=== PATIENT | female | born 1960 | race Caucasian/White ===

== ENCOUNTER 2022-11-28 15:44 | Inpatient (IN) ==
--- NOTE | 2022-11-28 17:23 | XRay Report ---
XR chest 1V not portable CLINICAL HISTORY: Tachycardia. COMPARISON STUDY: Chest CT October 05, 2021. Chest radiograph November 15, 2021. FINDINGS: There are median sternotomy wires and a prosthetic aortic valve. Cardiac size is normal. No pneumothorax or pleural effusion is present. There is emphysema. No consolidation is identified to s uggest pneumonia. An irregular density projecting over the right hilum is unchanged from earlier ches t CTs. This favors scarring. There has been no significant change in appearance of the chest. IMPRESSION: No acute cardiopulmonary findings. Emphysema. No change in appearance of the chest. ACT 112: Negative or not required by law. Electronically signed by: Reggie Gomez M.D. 11/28/2022 5:21 PM
[2022-11-28 17:27] LABS: Basophils # (auto) 0.05 K/uL (0-0.2); Basophils % (auto) 0.6 %; Eosinophils # (auto) 0.21 K/uL (0-0.50); Eosinophils % (auto) 2.4 %; Hematocrit (blood only) 34.7 % (37.0-47.0); Hemoglobin 11.1 g/dl (12.0-16.0); Immature Granulocytes # (auto) 0.04 K/uL (0.01-0.20); Immature Granulocytes % (auto) 0.5 %; Lymphocytes # (auto) 1.05 K/uL (1.2-3.4); Mean Corpuscular Hemoglobin 20.2 pg (25.0-34.0); Mean Corpuscular Volume 63.2 fL (80.0-100.0); Monocytes # (auto) 1.05 K/uL (0.11-0.59); Neutrophils # (auto) 6.38 K/uL (1.40-6.50); Neutrophils % (auto) 72.5 %; RDW Coefficient of Variation 14.4 % (11.5-14.5); RDW Standard Deviation 30.6 fL (36.4-46.3); Red Blood Count 5.49 M/uL (4.20-5.40); White Blood Count 8.78 K/ul (4.8-10.8)
[2022-11-28 17:34] LABS: Albumin Globulin Ratio 1.4 (0.9-2); Albumin Level 4.1 gm/dl (3.4-5.0); BUN Creatinine Ratio 7.5 (10-20); Bilirubin,Total 0.8 mg/dl (0.2-1.0); Calcium 9.6 mg/dl (8.6-10.3); Creatinine Clr Calc Pharmacy 70.6 ml/min; Est GFR (African American) 110.7 ml/min; Est GFR (Non-African American) 95.5 ml/min; Globulin 2.9 gm/dl (2.5-4.0); Potassium 3.4 mmol/L (3.5-5.1)
[2022-11-28] MEDS ORDERED: ONDANSETRON INJ 2 MG/ML 2 ML VIAL IV STA (17:35)
--- NOTE | 2022-11-28 17:37 | Emergency Department Note ---
Impression & Plan Elevated troponin ADMIT ED Provider Note HPI: The patient is a 62-year-old female with multiple comorbidities including COPD, on 2 L of nasal cannula oxygen at baseline, history of coronary artery disease status post multiple stents this past month at [facility], atrial fibrillation on Xarelto, presents to the emergency department with a chief complaint of nausea and epigastric discomfort for the past month. Patient states the symptoms have been ongoing, she states that she was placed on anticoagulation about 1 month ago and she believes this is the reason why she is having nausea and upset stomach. Patient also tells me that she had an EGD performed during her admission at [facility] that showed evidence of gastritis but no evidence of ulcers. On arrival here to the ED the patient is noted to be tachycardic in the 120s, she is otherwise hemodynamically stable with blood pressure 136/88, she is saturating well on her baseline 2 L nasal cannula oxygen on arrival without increased work of breathing. ROS: - Per HPI Differential Diagnosis: Acute gastritis, acute pancreatitis, acute cholecystitis, peptic ulcer disease, perforated viscus, acute coronary syndrome, amongst other potential pathologies. *Outpatient medications and allergy history reviewed. *Pertinent external medical records reviewed. 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 Lab work shows no leukocytosis, hemoglobin is stable at 11.1, platelet count is within normal limits, CMP shows multiple abnormalities including hyponatremia at 126, hypokalemia 3.4, creatinine is normal at 0.67. BUN is slightly below normal range at 5. High-sensitivity troponin level is elevated at 1000, EKG does not show any evidence of ST elevation [place] however there are noted to be some mild ST depressions in V5 and V6, patient is noted to have recent cardiac catheterization requiring multiple stents about 1 week ago in the [facility]. She denies any current chest pain, does state that she has epigastric pain which she did previously have at [facility] that required an EGD that showed gastritis. Hemoglobin is stable and the patient is not hypotensive, pain could's be secondary to gastritis however with history of recent coronary stenting and elevated troponin, I do have concern for evolving ACS. CT imaging of the abdomen pelvis was obtained given the patient's epigastric/upper abdominal pain, this does not show any evidence of any acute surgical abnormalities. Blood pressure is stable, hemoglobin is not critically low. CT imaging shows no evidence of perforated viscus. Patient was started on a Protonix bolus and Protonix drip over concern for gastritis with the epigastric pain. On my reassessment she is resting comfortably in bed. States her pain is improved from previous. I did discuss the patient's presentation with the on-call hospitalist, Dr. Swain, he is in agreement for admission. Patient is currently anticoagulated on Xarelto and does have gastritis with epigastric pain, therefore will forego heparin drip at this time and plan for repeat troponin. Will defer further management to the inpatient team following my discussion with Dr. Swain. I do not feel that the patient needs emergent catheterization at this time as her pain is improved and EKG does not show evidence of ST elevation [place]. I discussed all of this with the patient, she is in agreement for admission at this time. She did request a DuoNeb breathing treatment while she was here in the ED if she has had a slight cough and some wheezing. This did improve the symptoms. Chest x-ray does not show any acute cardiopulmonary findings. Viral panel testing was obtained and the patient is positive for enterovirus/rhinovirus. This is likely the source of her cough. Patient is in agreement to the above plan and she was admitted in stable condition. Consultants: Hospitalist, Dr. Swain Disposition discussion held by myself with: Patient Diagnosis: 1. Elevated troponin 2. Epigastric pain, acute 3. History of coronary artery disease, status post multiple stents 4. Bronchospasm, acute 5. Hyponatremia, acute 6. Anemia, mild, with unclear baseline Disposition: Admission Alfonso Lafleur DO Emergency Medicine Past Med/Surg History Medical History (Updated 11/29/22 @ 00:31 by Alfonso Lafleur DO) Acute bronchitis Acute sinusitis Anemia Asthma Chronic bronchitis Chronic obstructive pulmonary disease Closed rib fracture Current tobacco use Depression Disorder of bone and cartilage Esophageal reflux Exposure to mold Fatigue Hyponatremia Mitral valve disorder Oral thrush Osteoporosis Peptic ulcer Rheumatic heart disease Vaginal candidiasis Witnessed apneic spells Surgical History History of cataract surgery History of cholecystectomy History of laparoscopy Exploratory Family History Mother COPD (chronic obstructive pulmonary disease) Hypertension Transient ischemic attack Father Laryngeal cancer Brother Prostate cancer Social History Smoking Status: Former smoker Preferred Language: Bermudian Feels Safe at Home: Yes Allergies Allergies Allergy/AdvReac Type Severity Reaction Status Date / Time citalopram [From Celexa] Allergy Intermediate Itching Verified 11/28/22 18:36 clarithromycin [From Biaxin] AdvReac Severe Abdominal Verified 11/28/22 18:36 Pain amoxicillin [From DisperMox] AdvReac Intermediate diarrhea Verified 11/28/22 18:36 cefuroxime AdvReac Intermediate Diarrhea/ra Verified 11/28/22 18:36 sh/fatigue doxycycline AdvReac Intermediate Nausea and Verified 11/28/22 18:36 Vomiting levofloxacin [From Levaquin] AdvReac Intermediate Hallucinati Verified 11/28/22 18:36 ons/dizzine ss Home Meds Home Medications Medication Instructions Recorded Confirmed clorazepate dipotassium 15 mg 15 mg PO BID 12/01/18 11/28/22 tablet dexlansoprazole 60 mg 60 mg PO DAILY 12/01/18 11/28/22 capsule,biphase delayed release (Dexilant) furosemide 20 mg tablet (Lasix) 20 - 40 mg PO DAILY 12/01/18 11/28/22 verapamil 360 mg 24 hr 180 mg PO DAILY 05/04/19 11/28/22 capsule,extended release cetirizine 10 mg capsule (Zyrtec) 10 mg PO DAILY 12/29/19 11/28/22 clopidogrel 75 mg tablet 75 mg PO QAM 11/28/22 11/28/22 famotidine 20 mg tablet 20 mg PO DAILY 11/28/22 11/28/22 fluticasone 500 mcg-salmeterol 50 1 inh inhalation BID 11/28/22 11/28/22 mcg/dose blistr powdr for inhalation (Advair Diskus) fluticasone propionate 50 2 spray intranasal DAILY 11/28/22 11/28/22 mcg/actuation nasal spray,suspension ipratropium 0.5 mg-albuterol 3 mg 3 ml inhalation Q6H PRN Wheezing 11/28/22 11/28/22 (2.5 mg base)/3 mL nebulization soln iron,carbonyl 65 mg-vitamin C 125 1 tab PO PC 11/28/22 11/28/22 mg tablet,delayed release (Vitron-C) loperamide 2 mg tablet 2 mg PO DIRECTED PRN Diarrhea 11/28/22 11/28/22 magnesium oxide 800 mg PO QAM 11/28/22 11/28/22 metoprolol succinate 200 mg 200 mg PO DAILY 11/28/22 11/28/22 tablet,extended release 24 hr ondansetron HCl 4 mg tablet 4 mg PO Q6H PRN NAUSEA/VOMITING 11/28/22 11/28/22 paroxetine HCl 20 mg tablet (Paxil) 20 mg PO DAILY 11/28/22 11/28/22 rivaroxaban 20 mg tablet (Xarelto) 20 mg PO QDD 11/28/22 11/28/22 sodium chloride 1,000 mg soluble 1,000 mg PO BID 11/28/22 11/28/22 tablet sucralfate 1 gram tablet 1 g PO ACHS 11/28/22 11/28/22 Previous Rx's Medication Instructions Recorded albuterol sulfate 2.5 mg/3 mL 2.5 mg (3 mL) inhalation Q4H PRN 11/01/20 (0.083 %) solution for nebulization shortness of breath or wheezing #360 vials melatonin 10 mg tablet 10 mg PO HS PRN sleep #30 tabs 11/01/20 tiotropium bromide 18 mcg capsule 1 cap inhalation DAILY #90 11/15/20 with inhalation device (Spiriva inhalations with HandiHaler) nebulizers #1 ea 02/23/21 Flutter Valve #1 ea 05/01/21 albuterol sulfate 90 mcg/actuation 2 puff inhalation Q4H PRN 05/29/21 aerosol inhaler (ProAir HFA) shortness of breath or wheezing #18 grams Results & Data (ED) Vital Signs Vital Signs - 24 hr 11/28/22 16:03 11/28/22 18:00 11/28/22 21:47 Temperature 36.9 C Temperature Source Temporal Artery Scan Pulse Rate 128 H 65 49 L Pulse Rate from SpO2 Sensor Respiratory Rate 22 Respiratory Effort / Characteristics Non-Labored Spontaneous Respiratory Depth Normal Blood Pressure 136/88 Blood Pressure Mean 104 Pulse Oximetry 96 Oxygen Delivery Method Nasal Cannula Oxygen Flow Rate 2 Sepsis Recent Fever Within 48 Hours No Sepsis New/Unexplained Change in Mental Status N/A Sepsis Action Taken by Nursing No Action Required 11/28/22 17:42 11/28/22 18:00 11/28/22 18:00 Temperature Temperature Source Pulse Rate 66 63 Pulse Rate from SpO2 Sensor 62 64 Respiratory Rate 20 18 Respiratory Effort / Characteristics Respiratory Depth Blood Pressure 173/110 H Blood Pressure Mean 146 Pulse Oximetry 100 100 Oxygen Delivery Method Oxygen Flow Rate Sepsis Recent Fever Within 48 Hours Sepsis New/Unexplained Change in Mental Status Sepsis Action Taken by Nursing 11/28/22 18:30 11/28/22 19:00 11/28/22 19:00 Temperature Temperature Source Pulse Rate 62 59 L Pulse Rate from SpO2 Sensor 62 58 L Respiratory Rate 17 21 Respiratory Effort / Characteristics Respiratory Depth Blood Pressure 162/92 H Blood Pressure Mean 110 Pulse Oximetry 100 99 Oxygen Delivery Method Oxygen Flow Rate Sepsis Recent Fever Within 48 Hours Sepsis New/Unexplained Change in Mental Status Sepsis Action Taken by Nursing 11/28/22 19:30 11/28/22 20:00 11/28/22 20:00 Temperature Temperature Source Pulse Rate 56 L 55 L Pulse Rate from SpO2 Sensor 56 L 55 L Respiratory Rate 19 19 Respiratory Effort / Characteristics Respiratory Depth Blood Pressure 139/96 Blood Pressure Mean 112 Pulse Oximetry 100 100 Oxygen Delivery Method Oxygen Flow Rate Sepsis Recent Fever Within 48 Hours Sepsis New/Unexplained Change in Mental Status Sepsis Action Taken by Nursing 11/28/22 20:30 11/28/22 21:00 11/28/22 21:04 Temperature Temperature Source Pulse Rate 50 L 55 L Pulse Rate from SpO2 Sensor 50 L Respiratory Rate 20 21 Respiratory Effort / Characteristics Respiratory Depth Blood Pressure 130/73 Blood Pressure Mean 107 Pulse Oximetry 100 Oxygen Delivery Method Oxygen Flow Rate Sepsis Recent Fever Within 48 Hours Sepsis New/Unexplained Change in Mental Status Sepsis Action Taken by Nursing 11/28/22 21:04 11/28/22 21:30 11/28/22 22:00 Temperature Temperature Source Pulse Rate 53 L 47 L Pulse Rate from SpO2 Sensor 47 L Respiratory Rate 19 21 Respiratory Effort / Characteristics Respiratory Depth Blood Pressure 121/69 Blood Pressure Mean 71 Pulse Oximetry 100 Oxygen Delivery Method Oxygen Flow Rate Sepsis Recent Fever Within 48 Hours Sepsis New/Unexplained Change in Mental Status Sepsis Action Taken by Nursing 11/28/22 22:00 11/28/22 22:30 11/28/22 23:00 Temperature Temperature Source Pulse Rate 47 L 47 L Pulse Rate from SpO2 Sensor 47 L 47 L Respiratory Rate 18 18 Respiratory Effort / Characteristics Respiratory Depth Blood Pressure 125/75 Blood Pressure Mean 85 Pulse Oximetry 100 100 Oxygen Delivery Method Oxygen Flow Rate Sepsis Recent Fever Within 48 Hours Sepsis New/Unexplained Change in Mental Status Sepsis Action Taken by Nursing 11/28/22 23:00 Temperature Temperature Source Pulse Rate 47 L Pulse Rate from SpO2 Sensor 47 L Respiratory Rate 16 Respiratory Effort / Characteristics Respiratory Depth Blood Pressure Blood Pressure Mean Pulse Oximetry 100 Oxygen Delivery Method Oxygen Flow Rate Sepsis Recent Fever Within 48 Hours Sepsis New/Unexplained Change in Mental Status Sepsis Action Taken by Nursing Laboratory Data 11/28/22 16:08 11/28/22 16:08 Lab Results 11/28/22 11/28/22 11/28/22 Range/Units 16:08 16:08 20:45 WBC 8.78 (4.8-10.8) K/ul RBC 5.49 H (4.20-5.40) M/uL Hgb 11.1 L (12.0-16.0) g/dl Hct 34.7 L (37.0-47.0) % MCV 63.2 L (80.0-100.0) fL MCH 20.2 L (25.0-34.0) pg MCHC 32.0 (32.0-36.0) g/dL RDW Std Deviation 30.6 L (36.4-46.3) fL RDW Coeff of Emil 14.4 (11.5-14.5) % Plt Count 332 (130-400) K/uL MPV 9.1 L (9.4-12.4) fL Immature Gran % (Auto) 0.5 % Neut % (Auto) 72.5 % Lymph % (Auto) 12.0 % Logan % (Auto) 12.0 % Eos % (Auto) 2.4 % Baso % (Auto) 0.6 % Neut # (Auto) 6.38 (1.40-6.50) K/uL Lymph # (Auto) 1.05 L (1.2-3.4) K/uL Logan # (Auto) 1.05 H (0.11-0.59) K/uL Eos # (Auto) 0.21 (0-0.50) K/uL Baso # (Auto) 0.05 (0-0.2) K/uL Immature Gran # (Auto) 0.04 (0.01-0.20) K/uL Platelet Estimate Normal (Normal) Polychromasia 1+ Tear Drop Cells 1+ Sodium 126 L (136-145) mmol/L Potassium 3.4 L (3.5-5.1) mmol/L Chloride 82 L (98-107) mmol/L Carbon Dioxide 37 H (21-32) mmol/L Anion Gap 7 (3-11) BUN 5 L (6-23) mg/dl Creatinine 0.67 (0.6-1.2) mg/dl Est Cr Clr Drug Dosing 70.6 ml/min Est GFR ( Amer) 110.7 ml/min Est GFR (Non-Af Amer) 95.5 ml/min BUN/Creatinine Ratio 7.5 L (10-20) Glucose 103 H (70-99(Fasting)) mg/dl Calcium 9.6 (8.6-10.3) mg/dl Total Bilirubin 0.8 (0.2-1.0) mg/dl AST 19 (13-39) U/L ALT 10 (7-52) U/L Alkaline Phosphatase 56 (34-104) U/L Troponin I High Sens 1000.6 H* 956.7 H* (0-14) pg/ml Total Protein 7.0 (6.0-8.3) gm/dl Albumin 4.1 (3.4-5.0) gm/dl Globulin 2.9 (2.5-4.0) gm/dl Albumin/Globulin Ratio 1.4 (0.9-2) Lipase 13 (11-82) U/L Urine Color Urine Appearance (Clear) Urine pH (4.5-7.5) Ur Specific [place] (1.000-1.030) Urine Protein (Negative) Urine Glucose (UA) (Negative) Urine Ketones (Negative) Urine Blood (Negative) Urine Nitrite (Negative) Urine Bilirubin (Negative) Urine Urobilinogen (Negative) Ur Leukocyte Esterase (Negative) 11/28/22 Range/Units 20:50 WBC (4.8-10.8) K/ul RBC (4.20-5.40) M/uL Hgb (12.0-16.0) g/dl Hct (37.0-47.0) % MCV (80.0-100.0) fL MCH (25.0-34.0) pg MCHC (32.0-36.0) g/dL RDW Std Deviation (36.4-46.3) fL RDW Coeff of Emil (11.5-14.5) % Plt Count (130-400) K/uL MPV (9.4-12.4) fL Immature Gran % (Auto) % Neut % (Auto) % Lymph % (Auto) % Logan % (Auto) % Eos % (Auto) % Baso % (Auto) % Neut # (Auto) (1.40-6.50) K/uL Lymph # (Auto) (1.2-3.4) K/uL Logan # (Auto) (0.11-0.59) K/uL Eos # (Auto) (0-0.50) K/uL Baso # (Auto) (0-0.2) K/uL Immature Gran # (Auto) (0.01-0.20) K/uL Platelet Estimate (Normal) Polychromasia Tear Drop Cells Sodium (136-145) mmol/L Potassium (3.5-5.1) mmol/L Chloride (98-107) mmol/L Carbon Dioxide (21-32) mmol/L Anion Gap (3-11) BUN (6-23) mg/dl Creatinine (0.6-1.2) mg/dl Est Cr Clr Drug Dosing ml/min Est GFR ( Amer) ml/min Est GFR (Non-Af Amer) ml/min BUN/Creatinine Ratio (10-20) Glucose (70-99(Fasting)) mg/dl Calcium (8.6-10.3) mg/dl Total Bilirubin (0.2-1.0) mg/dl AST (13-39) U/L ALT (7-52) U/L Alkaline Phosphatase (34-104) U/L Troponin I High Sens (0-14) pg/ml Total Protein (6.0-8.3) gm/dl Albumin (3.4-5.0) gm/dl Globulin (2.5-4.0) gm/dl Albumin/Globulin Ratio (0.9-2) Lipase (11-82) U/L Urine Color Yellow Urine Appearance Clear (Clear) Urine pH 8.0 H (4.5-7.5) Ur Specific [place] > 1.045 H (1.000-1.030) Urine Protein Negative (Negative) Urine Glucose (UA) Negative (Negative) Urine Ketones Negative (Negative) Urine Blood Negative (Negative) Urine Nitrite Negative (Negative) Urine Bilirubin Negative (Negative) Urine Urobilinogen Negative (Negative) Ur Leukocyte Esterase Negative (Negative) Administered Medications Discontinued Medications Albuterol (Albut/Ipratrop 3mg/0.5mg Neb 3 Ml Vial) 3 ml NEB NOW STA; Protocol Stop: 11/28/22 18:21 Last Admin: 11/28/22 18:29 Dose: 3 ml Documented By: VERONICA Aspirin (Aspirin Chew 324 Mg) 324 mg PO NOW STA Stop: 11/28/22 20:31 Last Admin: 11/28/22 21:07 Dose: 324 mg Documented By: FELIPE Pantoprazole Sodium (Protonix Bolus/Drip) 0 mls @ 1 mls/hr IV ONE STA Stop: 11/28/22 20:35 Last Admin: 11/28/22 21:07 Dose: Not Given Documented By: FELPIE Pantoprazole Sodium 80 mg/ (Dextrose) 120 mls @ 400 mls/hr IV NOW ONE Stop: 11/28/22 20:51 Last Infusion: 11/28/22 23:03 Dose: 0 mls/hr Documented By: Admin: 11/28/22 21:48 Dose: 400 mls/hr Documented By: VERONICA Pantoprazole Sodium 40 mg/ (Dextrose) 100 mls @ 20 mls/hr IV Q5H STAR Stop: 12/28/22 20:59 Last Admin: 11/28/22 22:04 Dose: 8 mg/hr, 20 mls/hr Documented By: VERONICA Ioversol (Optiray 320 100ml) 92 ml IV ONCE ONE Stop: 11/28/22 20:09 Last Admin: 11/28/22 20:08 Dose: 92 ml Documented By: ANNABELLE Ondansetron HCl (Ondansetron Inj 2 Mg/Ml 2 Ml Vial) 4 mg IV NOW STA Stop: 11/28/22 17:36 Last Admin: 11/28/22 17:50 Dose: 4 mg Documented By: VERONICA Imaging Data Radiologist's Impression: Chest X-Ray 11/28/22 16:09 XR chest 1V not portable CLINICAL HISTORY: Tachycardia. COMPARISON STUDY: Chest CT October 05, 2021. Chest radiograph November 15, 2021. FINDINGS: There are median sternotomy wires and a prosthetic aortic valve. Cardiac size is normal. No pneumothorax or pleural effusion is present. There is emphysema. No consolidation is identified to suggest pneumonia. An irregular density projecting over the right hilum is unchanged from earlier chest CTs. This favors scarring. There has been no significant change in appearance of the chest. IMPRESSION: No acute cardiopulmonary findings. Emphysema. No change in appearance of the chest. ACT 112: Negative or not required by law. Electronically signed by: Reggie Gomez M.D. 11/28/2022 5:21 PM Abdomen/Pelvis CT 11/28/22 17:34 Exam(s): CT ABDOMEN + PELVIS With Contrast IV Amt: 92 ml optiray 320 EXAM: CT Abdomen and Pelvis With Intravenous Contrast CLINICAL HISTORY: Reason for exam: Epigastric abdominal pain, nausea. TECHNIQUE: Axial computed tomography images of the abdomen and pelvis with intravenous contrast. CTDI is 12.7 mGy and DLP is 515.74 mGy-cm. Automated exposure control was utilized for the study. A dose lowering technique was utilized adhering to the principles of ALARA. CONTRAST: Patient received 92 ml optiray 320 of IV contrast COMPARISON: No relevant prior studies available. FINDINGS: Lung bases: Unremarkable. No mass. No consolidation. ABDOMEN: Liver: Unremarkable. No focal hepatic lesion. Gallbladder and bile ducts: Cholecystectomy. No ductal dilation. Pancreas: Unremarkable. No mass. No ductal dilation. Spleen: Unremarkable. No splenomegaly. Adrenals: Unremarkable. No mass. Kidneys and ureters: Unremarkable. No hydronephrosis or delayed nephrogram. Stomach and bowel: Diverticulosis, without acute diverticulitis. No small bowel obstruction. No free air. PELVIS: Appendix: Normal appendix. Bladder: Unremarkable. Normal urinary bladder. Reproductive: Unremarkable as visualized. Normal CT appearance of the uterus. ABDOMEN and PELVIS: Intraperitoneal space: See above. Bones/joints: Degenerative changes of the spine. No acute fracture. No dislocation. Soft tissues: Unremarkable. Vasculature: Atherosclerotic changes of the aorta. No abdominal aortic aneurysm. Lymph nodes: Unremarkable. No enlarged lymph nodes. IMPRESSION: 1. No hydronephrosis or delayed nephrogram. 2. Normal appendix. 3. Cholecystectomy. 4. Diverticulosis, without acute diverticulitis. No small bowel obstruction. No free air. Electronically signed by: Renny Mary MD 11/28/22 20:23 PM Discharge Plan Visit Data Chief Complaint: Cough Stated Complaint: COUGH,ABD PAIN ED Provider: Alfonso Lafleur Discharge Problem: Elevated troponin Discharge Instructions Interventions: ED Discharge Assessment Last Done: 11/28/22 23:55
[2022-11-28 17:56] LABS: Mean Platelet Volume 9.1 fL (9.4-12.4); Platelet Count 332 K/uL (130-400)
[2022-11-28 17:57] LABS: Platelet Estimate Normal (Normal); Polychromasia 1+; Tear Drop Cells 1+
[2022-11-28] MEDS ORDERED: ALBUT/IPRATROP 3MG/0.5MG NEB 3 ML VIAL NEB STA (18:20)
[2022-11-28 18:23] LABS: Troponin I High Sensitivity 1000.6 pg/ml (0-14)
[2022-11-28 19:07] LABS: Adenovirus PCR Not Detected (NotDetected); Bordetella parapertussis PCR Not Detected (NotDetected); Bordetella pertussis PCR Not Detected (NotDetected); Chlamydia pneumoniae PCR Not Detected (NotDetected); Coronavirus 229E PCR Not Detected (NotDetected); Coronavirus CoV-2 (COVID19)PCR Not Detected (NotDetected); Coronavirus HKU1 PCR Not Detected (NotDetected); Coronavirus NL63 PCR Not Detected (NotDetected); Coronavirus OC43PCR Not Detected (NotDetected); Human Metapneumovirus PCR Not Detected (NotDetected); Influenza A PCR Not Detected (NotDetected); Influenza B PCR Not Detected (NotDetected); Mycoplasma pneumoniae PCR Not Detected (NotDetected); Parainfluenza Virus 1 PCR Not Detected (NotDetected); Parainfluenza Virus 2 PCR Not Detected (NotDetected); Parainfluenza Virus 3 PCR Not Detected (NotDetected); Parainfluenza Virus 4 PCR Not Detected (NotDetected); Respiratory Syncytial VirusPCR Not Detected (NotDetected)
[2022-11-28 19:12] LABS: Rhinovirus/Enterovirus PCR DETECTED (NotDetected)
[2022-11-28] MEDS ORDERED: OPTIRAY 320 100ml IV ONE (20:08)
--- NOTE | 2022-11-28 20:23 | CT Scan Report ---
Exam(s): CT ABDOMEN + PELVIS With Contrast IV Amt: 92 ml optiray 320 EXAM: CT Abdomen and Pelvis With Intravenous Contrast CLINICAL HISTORY: Reason for exam: Epigastric abdominal pain, nausea. TECHNIQUE: Axial computed tomography images of the abdomen and pelvis with intravenous contrast. CTDI is 12.7 mGy and DLP is 515.74 mGy-cm. Automated exposure control was utilized for the study. A dose lowering technique was utilized adhering to the principles of ALARA. CONTRAST: Patient received 92 ml optiray 320 of IV contrast COMPARISON: No relevant prior studies available. FINDINGS: Lung bases: Unremarkable. No mass. No consolidation. ABDOMEN: Liver: Unremarkable. No focal hepatic lesion. Gallbladder and bile ducts: Cholecystectomy. No ductal dilation. Pancreas: Unremarkable. No mass. No ductal dilation. Spleen: Unremarkable. No splenomegaly. Adrenals: Unremarkable. No mass. Kidneys and ureters: Unremarkable. No hydronephrosis or delayed nephrogram. Stomach and bowel: Diverticulosis, without acute diverticulitis. No small bowel obstruction. No free air. PELVIS: Appendix: Normal appendix. Bladder: Unremarkable. Normal urinary bladder. Reproductive: Unremarkable as visualized. Normal CT appearance of the uterus. ABDOMEN and PELVIS: Intraperitoneal space: See above. Bones/joints: Degenerative changes of the spine. No acute fracture. No dislocation. Soft tissues: Unremarkable. Vasculature: Atherosclerotic changes of the aorta. No abdominal aortic aneurysm. Lymph nodes: Unremarkable. No enlarged lymph nodes. IMPRESSION: 1. No hydronephrosis or delayed nephrogram. 2. Normal appendix. 3. Cholecystectomy. 4. Diverticulosis, without acute diverticulitis. No small bowel obstruction. No free air. Electronically signed by: Renny Mary MD 11/28/22 20:23 PM
[2022-11-28] MEDS ORDERED: ASPIRIN CHEW 324 MG PO STA (20:30)
[2022-11-28] MEDS ORDERED: PANTOprazole 80 MG in DEXTROSE 5% 100 ML IV ONE (20:34)
[2022-11-28] MEDS ORDERED: PANTOPRAZOLE BOLUS/DRIP 1 EACH IV STA (20:34)
[2022-11-28] MEDS ORDERED: PANTOprazole 40 MG in DEXTROSE 5% 100 ML IV SCH (21:00)
[2022-11-28 22:52] LABS: Appearance Urine Clear (Clear); Bilirubin Urine Negative (Negative); Blood Urine Negative (Negative); Color Urine Yellow; Glucose Urine UA Negative (Negative); Ketones Urine Negative (Negative); Leukocyte Esterase Urine Negative (Negative); Nitrite Urine Negative (Negative); Protein Urine Negative (Negative); Specific Gravity Urine > 1.045 (1.000-1.030); Urobilinogen Urine Negative (Negative)
[2022-11-28] MEDS ORDERED: RIVAROXABAN 20 MG TAB PO STA (23:07)
[2022-11-28] MEDS ORDERED: POTASSIUM CHLORIDE CRTAB 20 MEQ TABCR PO STA (23:15)
--- NOTE | 2022-11-28 23:39 | History & Physical Report ---
Date of Service November 28, 2022 Assessment & Plan (1) NSTEMI (non-ST elevated myocardial infarction): Plan: 62-year-old female history of hyperlipidemia COPD on home oxygen 2 L, chronic seasonal allergic rhinitis, history of SVT, history of enlarged thoracic aorta, history of Raynaud's phenomenon, history of mitral valve prolapse, history of hypertension, history of GERD, generalized osteoarthritis, thalassemia minor, psoriasis, depression, s/p aortic valve replacement bioprosthetic valve, former smoker, recently last week had cardiac cath and s/p 3 stents at [facility] in [place] as per patient . Patient states having epigastric pain going on for last 1 month also with nausea and poor oral intake. Found to have elevated troponin and hyponatremia. Possible non-ST elevated ME Initial troponin 1000 and repeat is 956 Patient says she had his 3 stents last week at [facility] Currently asymptomatic. EKG has T wave inversions in inferior lateral leads On Xarelto and Plavix and beta-amriposa. ER gave aspirin. We will continue aspirin for now. We will follow serial cardiac enzymes and echo and keep her n.p.o. We will monitor in telemetry floor Cardiology Consult in a.m. for further recommendation Epigastric pain EGD last week showed gastritis We will continue sucralfate Pepcid in place and IV Protonix twice daily Consult GI in a.m. for further recommendations Hyponatremia Sodium 126 Seems on salt tablets We will follow urine osmolality, serum osmolality and urine sodium levels Getting gentle fluids We will follow BMP every 6 hours and consult nephrology in a.m. Bradycardia We will continue metoprolol succinate with holding parameters We will hold verapamil for now Consult cardiology in a.m. for further recommendations Telemetry monitoring Paroxysmal atrial fibrillation Metoprolol as above On Xarelto COPD on home oxygen Continue home inhalers and nebs as needed Enterorhinovirus on bio fire Supportive care Isolation precautions DVT prophylaxis on Xarelto Disposition telemetry floor Full code History of Present Illness Chief Complaint: Epigastric abdominal pain and nausea Primary Care Provider: Margaret Welsh DO 62-year-old female history of hyperlipidemia COPD on home oxygen 2 L, chronic seasonal allergic rhinitis, history of SVT, history of enlarged thoracic aorta, history of Raynaud's phenomenon, history of mitral valve prolapse, history of hypertension, history of GERD, generalized osteoarthritis, thalassemia minor, psoriasis, depression, s/p aortic valve replacement bioprosthetic valve, former smoker, recently last week had cardiac cath and s/p 3 stents at [facility] in [place] as per patient . Patient states having epigastric pain going on for last 1 month also with nausea and poor oral intake. Her EKG is always abnormal as per patient. Last week cardiac, showed 3 small blockages as per patient and 3 stents placed expecting her abdominal pain to improve. But it did not improve her abdominal pain. And she also had EGD which showed gastritis.As her abdominal pain and nausea is not improving her PCP advised to come to the ER today. Denies any chest pain or shortness of breath. Will ambulating she is not getting chest pain. Afebrile. No headache. Vision is okay. No sore throat. No headaches. Normal bowel and bladder movements. Past medical history as mentioned above Past surgical history colonoscopy, cardiac cath, bioprosthetic aortic valve replacement Allergies Allergy/AdvReac Type Severity Reaction Status Date / Time citalopram [From Celexa] Allergy Intermediate Itching Verified 11/28/22 18:36 clarithromycin [From Biaxin] AdvReac Severe Abdominal Verified 11/28/22 18:36 Pain amoxicillin [From DisperMox] AdvReac Intermediate diarrhea Verified 11/28/22 18:36 cefuroxime AdvReac Intermediate Diarrhea/ra Verified 11/28/22 18:36 sh/fatigue doxycycline AdvReac Intermediate Nausea and Verified 11/28/22 18:36 Vomiting levofloxacin [From Levaquin] AdvReac Intermediate Hallucinati Verified 11/28/22 18:36 ons/dizzine ss Home Medications Medication Instructions Recorded Confirmed Type clorazepate dipotassium 15 mg 15 mg PO BID 12/01/18 11/28/22 History tablet dexlansoprazole 60 mg 60 mg PO DAILY 12/01/18 11/28/22 History capsule,biphase delayed release (Dexilant) furosemide 20 mg tablet (Lasix) 20 - 40 mg PO DAILY 12/01/18 11/28/22 History verapamil 360 mg 24 hr 180 mg PO DAILY 05/04/19 11/28/22 History capsule,extended release cetirizine 10 mg capsule (Zyrtec) 10 mg PO DAILY 12/29/19 11/28/22 History albuterol sulfate 2.5 mg/3 mL 2.5 mg (3 mL) inhalation Q4H PRN 11/01/20 11/28/22 Rx (0.083 %) solution for nebulization shortness of breath or wheezing #360 vials melatonin 10 mg tablet 10 mg PO HS PRN sleep #30 tabs 11/01/20 11/28/22 Rx tiotropium bromide 18 mcg capsule 1 cap inhalation DAILY #90 11/15/20 11/28/22 Rx with inhalation device (Spiriva inhalations with HandiHaler) nebulizers #1 ea 02/23/21 12/19/21 Rx Flutter Valve #1 ea 05/01/21 12/19/21 Rx albuterol sulfate 90 mcg/actuation 2 puff inhalation Q4H PRN 05/29/21 11/28/22 Rx aerosol inhaler (ProAir HFA) shortness of breath or wheezing #18 grams clopidogrel 75 mg tablet 75 mg PO QAM 11/28/22 11/28/22 History famotidine 20 mg tablet 20 mg PO DAILY 11/28/22 11/28/22 History fluticasone 500 mcg-salmeterol 50 1 inh inhalation BID 11/28/22 11/28/22 History mcg/dose blistr powdr for inhalation (Advair Diskus) fluticasone propionate 50 2 spray intranasal DAILY 11/28/22 11/28/22 History mcg/actuation nasal spray,suspension ipratropium 0.5 mg-albuterol 3 mg 3 ml inhalation Q6H PRN Wheezing 11/28/22 11/28/22 History (2.5 mg base)/3 mL nebulization soln iron,carbonyl 65 mg-vitamin C 125 1 tab PO PC 11/28/22 11/28/22 History mg tablet,delayed release (Vitron-C) loperamide 2 mg tablet 2 mg PO DIRECTED PRN Diarrhea 11/28/22 11/28/22 History magnesium oxide 800 mg PO QAM 11/28/22 11/28/22 History metoprolol succinate 200 mg 200 mg PO DAILY 11/28/22 11/28/22 History tablet,extended release 24 hr ondansetron HCl 4 mg tablet 4 mg PO Q6H PRN NAUSEA/VOMITING 11/28/22 11/28/22 History paroxetine HCl 20 mg tablet (Paxil) 20 mg PO DAILY 11/28/22 11/28/22 History rivaroxaban 20 mg tablet (Xarelto) 20 mg PO QDD 11/28/22 11/28/22 History sodium chloride 1,000 mg soluble 1,000 mg PO BID 11/28/22 11/28/22 History tablet sucralfate 1 gram tablet 1 g PO ACHS 11/28/22 11/28/22 History Past Med/Surg History Medical History (Updated 11/28/22 @ 23:32 by Rod Swain MD) Acute bronchitis Acute sinusitis Anemia Asthma Chronic bronchitis Chronic obstructive pulmonary disease Closed rib fracture Current tobacco use Depression Disorder of bone and cartilage Esophageal reflux Exposure to mold Fatigue Hyponatremia Mitral valve disorder Oral thrush Osteoporosis Peptic ulcer Rheumatic heart disease Vaginal candidiasis Witnessed apneic spells Surgical History History of cataract surgery History of cholecystectomy History of laparoscopy Exploratory Family History Mother COPD (chronic obstructive pulmonary disease) Hypertension Transient ischemic attack Father Laryngeal cancer Brother Prostate cancer Social History Smoking Status: Former smoker Preferred Language: [place] Feels Safe at Home: Yes Review of Systems Review of Systems: All systems reviewed & are unremarkable except as noted in Subjective Physical Exam Physical Exam: General- Not in distress Head- atraumatic Eyes- PERRL ENT- oropharynx clear Neck- supple, no JVD, Lungs- clear to auscultation and percussion no added sounds Heart- regular rate rhythm; no murmur, no gallop, Abdomen- normal bowel sounds, soft, epigastric tenderness present, no distension Extremities- no pretibial edema, no erythema seen. Neuro- alert, oriented x 3; PERRL, ; no facial palsy; no dysarthria;moves extremities Skin- warm & dry Results & Data Results & Data Vital Signs (Past 12 Hours) Vital Signs Temp Pulse Resp BP Pulse Ox O2 Del Method O2 Flow Rate 11/28/22 23:00 47 L 16 100 11/28/22 23:00 125/75 11/28/22 22:30 47 L 18 100 11/28/22 22:00 47 L 18 100 11/28/22 22:00 121/69 11/28/22 21:30 47 L 21 100 11/28/22 21:04 53 L 19 11/28/22 21:04 130/73 11/28/22 21:00 55 L 21 11/28/22 20:30 50 L 20 100 11/28/22 20:00 55 L 19 100 11/28/22 20:00 139/96 11/28/22 19:30 56 L 19 100 11/28/22 19:00 59 L 21 99 11/28/22 19:00 162/92 H 11/28/22 18:30 62 17 100 11/28/22 18:00 63 18 100 11/28/22 18:00 173/110 H 11/28/22 17:42 66 20 100 11/28/22 21:47 49 L 11/28/22 18:00 65 11/28/22 16:03 36.9 C 128 H 22 136/88 96 Nasal Cannula 2 Diagnostic Findings Laboratory Results WBC 8.78 K/ul (4.8-10.8) 11/28/22 16:08 RBC 5.49 M/uL (4.20-5.40) H 11/28/22 16:08 Hgb 11.1 g/dl (12.0-16.0) L 11/28/22 16:08 Hct 34.7 % (37.0-47.0) L 11/28/22 16:08 MCV 63.2 fL (80.0-100.0) L 11/28/22 16:08 MCH 20.2 pg (25.0-34.0) L 11/28/22 16:08 MCHC 32.0 g/dL (32.0-36.0) 11/28/22 16:08 RDW Std Deviation 30.6 fL (36.4-46.3) L 11/28/22 16:08 RDW Coeff of Emil 14.4 % (11.5-14.5) 11/28/22 16:08 Plt Count 332 K/uL (130-400) 11/28/22 16:08 MPV 9.1 fL (9.4-12.4) L 11/28/22 16:08 Immature Gran % (Auto) 0.5 % 11/28/22 16:08 Neut % (Auto) 72.5 % 11/28/22 16:08 Lymph % (Auto) 12.0 % 11/28/22 16:08 [place] % (Auto) 12.0 % 11/28/22 16:08 Eos % (Auto) 2.4 % 11/28/22 16:08 Baso % (Auto) 0.6 % 11/28/22 16:08 Neut # (Auto) 6.38 K/uL (1.40-6.50) 11/28/22 16:08 Lymph # (Auto) 1.05 K/uL (1.2-3.4) L 11/28/22 16:08 [place] # (Auto) 1.05 K/uL (0.11-0.59) H 11/28/22 16:08 Eos # (Auto) 0.21 K/uL (0-0.50) 11/28/22 16:08 Baso # (Auto) 0.05 K/uL (0-0.2) 11/28/22 16:08 Immature Gran # (Auto) 0.04 K/uL (0.01-0.20) 11/28/22 16:08 Platelet Estimate Normal (Normal) 11/28/22 16:08 Polychromasia 1+ 11/28/22 16:08 Tear Drop Cells 1+ 11/28/22 16:08 Sodium 126 mmol/L (136-145) L 11/28/22 16:08 Potassium 3.4 mmol/L (3.5-5.1) L 11/28/22 16:08 Chloride 82 mmol/L (98-107) L 11/28/22 16:08 Carbon Dioxide 37 mmol/L (21-32) H 11/28/22 16:08 Anion Gap 7 (3-11) 11/28/22 16:08 BUN 5 mg/dl (6-23) L 11/28/22 16:08 Creatinine 0.67 mg/dl (0.6-1.2) 11/28/22 16:08 Est Cr Clr Drug Dosing 70.6 ml/min 11/28/22 16:08 Est GFR ( Amer) 110.7 ml/min 11/28/22 16:08 Est GFR (Non-Af Amer) 95.5 ml/min 11/28/22 16:08 BUN/Creatinine Ratio 7.5 (10-20) L 11/28/22 16:08 Glucose 103 mg/dl (70-99(Fasting)) H 11/28/22 16:08 Calcium 9.6 mg/dl (8.6-10.3) 11/28/22 16:08 Total Bilirubin 0.8 mg/dl (0.2-1.0) 11/28/22 16:08 AST 19 U/L (13-39) 11/28/22 16:08 ALT 10 U/L (7-52) 11/28/22 16:08 Alkaline Phosphatase 56 U/L (34-104) 11/28/22 16:08 Troponin I High Sens 956.7 pg/ml (0-14) H* 11/28/22 20:45 Total Protein 7.0 gm/dl (6.0-8.3) 11/28/22 16:08 Albumin 4.1 gm/dl (3.4-5.0) 11/28/22 16:08 Globulin 2.9 gm/dl (2.5-4.0) 11/28/22 16:08 Albumin/Globulin Ratio 1.4 (0.9-2) 11/28/22 16:08 Lipase 13 U/L (11-82) 11/28/22 16:08 Urine Color Yellow 11/28/22 20:50 Urine Appearance Clear (Clear) 11/28/22 20:50 Urine pH 8.0 (4.5-7.5) H 11/28/22 20:50 Ur Specific [place] > 1.045 (1.000-1.030) H 11/28/22 20:50 Urine Protein Negative (Negative) 11/28/22 20:50 Urine Glucose (UA) Negative (Negative) 11/28/22 20:50 Urine Ketones Negative (Negative) 11/28/22 20:50 Urine Blood Negative (Negative) 11/28/22 20:50 Urine Nitrite Negative (Negative) 11/28/22 20:50 Urine Bilirubin Negative (Negative) 11/28/22 20:50 Urine Urobilinogen Negative (Negative) 11/28/22 20:50 Ur Leukocyte Esterase Negative (Negative) 11/28/22 20:50 Adenovirus (PCR) Not Detected (NotDetected) 11/28/22 Unknown B. pertussis DNA (PCR) Not Detected (NotDetected) 11/28/22 Unknown B.parapertussis DNA PCR Not Detected (NotDetected) 11/28/22 Unknown C. pneumoniae DNA (PCR) Not Detected (NotDetected) 11/28/22 Unknown Coronavirus OC43 (PCR) Not Detected (NotDetected) 11/28/22 Unknown Coronavirus HKU1 (PCR) Not Detected (NotDetected) 11/28/22 Unknown Coronavirus 229E (PCR) Not Detected (NotDetected) 11/28/22 Unknown SARS-CoV-2 (PCR) Not Detected (NotDetected) 11/28/22 Unknown Coronavirus NL63 (PCR) Not Detected (NotDetected) 11/28/22 Unknown Human Metapneumovir PCR Not Detected (NotDetected) 11/28/22 Unknown Influenza Type A (PCR) Not Detected (NotDetected) 11/28/22 Unknown Influenza Type B (PCR) Not Detected (NotDetected) 11/28/22 Unknown M. pneumoniae (PCR) Not Detected (NotDetected) 11/28/22 Unknown Parainfluenza 1 (PCR) Not Detected (NotDetected) 11/28/22 Unknown Parainfluenza 2 (PCR) Not Detected (NotDetected) 11/28/22 Unknown Parainfluenza 3 (PCR) Not Detected (NotDetected) 11/28/22 Unknown Parainfluenza 4 (PCR) Not Detected (NotDetected) 11/28/22 Unknown RSV (PCR) Not Detected (NotDetected) 11/28/22 Unknown Entero/Rhino (PCR) DETECTED (NotDetected) A* 11/28/22 Unknown Impressions Chest X-Ray 11/28/22 16:09 XR chest 1V not portable CLINICAL HISTORY: Tachycardia. COMPARISON STUDY: Chest CT October 05, 2021. Chest radiograph November 15, 2021. FINDINGS: There are median sternotomy wires and a prosthetic aortic valve. Cardiac size is normal. No pneumothorax or pleural effusion is present. There is emphysema. No consolidation is identified to suggest pneumonia. An irregular density projecting over the right hilum is unchanged from earlier chest CTs. This favors scarring. There has been no significant change in appearance of the chest. IMPRESSION: No acute cardiopulmonary findings. Emphysema. No change in appearance of the chest. ACT 112: Negative or not required by law. Electronically signed by: Reggie Gomez M.D. 11/28/2022 5:21 PM Abdomen/Pelvis CT 11/28/22 17:34 Exam(s): CT ABDOMEN + PELVIS With Contrast IV Amt: 92 ml optiray 320 EXAM: CT Abdomen and Pelvis With Intravenous Contrast CLINICAL HISTORY: Reason for exam: Epigastric abdominal pain, nausea. TECHNIQUE: Axial computed tomography images of the abdomen and pelvis with intravenous contrast. CTDI is 12.7 mGy and DLP is 515.74 mGy-cm. Automated exposure control was utilized for the study. A dose lowering technique was utilized adhering to the principles of ALARA. CONTRAST: Patient received 92 ml optiray 320 of IV contrast COMPARISON: No relevant prior studies available. FINDINGS: Lung bases: Unremarkable. No mass. No consolidation. ABDOMEN: Liver: Unremarkable. No focal hepatic lesion. Gallbladder and bile ducts: Cholecystectomy. No ductal dilation. Pancreas: Unremarkable. No mass. No ductal dilation. Spleen: Unremarkable. No splenomegaly. Adrenals: Unremarkable. No mass. Kidneys and ureters: Unremarkable. No hydronephrosis or delayed nephrogram. Stomach and bowel: Diverticulosis, without acute diverticulitis. No small bowel obstruction. No free air. PELVIS: Appendix: Normal appendix. Bladder: Unremarkable. Normal urinary bladder. Reproductive: Unremarkable as visualized. Normal CT appearance of the uterus. ABDOMEN and PELVIS: Intraperitoneal space: See above. Bones/joints: Degenerative changes of the spine. No acute fracture. No dislocation. Soft tissues: Unremarkable. Vasculature: Atherosclerotic changes of the aorta. No abdominal aortic aneurysm. Lymph nodes: Unremarkable. No enlarged lymph nodes. IMPRESSION: 1. No hydronephrosis or delayed nephrogram. 2. Normal appendix. 3. Cholecystectomy. 4. Diverticulosis, without acute diverticulitis. No small bowel obstruction. No free air. Electronically signed by: Renny Mary MD 11/28/22 20:23 PM ECG Additional Comments: ECG normal sinus rhythm with rate of 65 T wave inversions in the inferior lateral leads Code Status & VTE Plan VTE Prophylaxis Plan VTE Prophylaxis will be ordered: Yes
[2022-11-28] MEDS ORDERED: SODIUM CHLORIDE 0.9% 1000ML 1,000 ML IV SCH (23:55)
[2022-11-28] MEDS ORDERED: NITROGLYCERIN SL 0.4 MG/TAB TAB SL PRN (23:55)
[2022-11-28] MEDS ORDERED: ALBUTEROL HFA 8 GM INHALER INH PRN (23:55)
[2022-11-29 06:46] LABS: Basophils # (auto) 0.04 K/uL (0-0.2); Basophils % (auto) 0.6 %; Eosinophils # (auto) 0.42 K/uL (0-0.50); Eosinophils % (auto) 6.2 %; Hematocrit (blood only) 31.2 % (37.0-47.0); Immature Granulocytes # (auto) 0.03 K/uL (0.01-0.20); Immature Granulocytes % (auto) 0.4 %; Lymphocytes # (auto) 0.75 K/uL (1.2-3.4); Mean Corpuscular Hemoglobin 20.2 pg (25.0-34.0); Mean Corpuscular Hgb Conc 32.1 g/dL (32.0-36.0); Mean Corpuscular Volume 63.2 fL (80.0-100.0); Monocytes # (auto) 0.88 K/uL (0.11-0.59); Monocytes % (auto) 12.9 %; Neutrophils # (auto) 4.68 K/uL (1.40-6.50); Neutrophils % (auto) 68.9 %; RDW Coefficient of Variation 14.4 % (11.5-14.5); RDW Standard Deviation 30.7 fL (36.4-46.3); Red Blood Count 4.94 M/uL (4.20-5.40)
[2022-11-29] MEDS: ALBUT/IPRATROP 3MG/0.5MG NEB 3 ML VIAL INH PRN ×2 (06:49→15:11)
[2022-11-29 07:01] LABS: BUN Creatinine Ratio 6.9 (10-20); Calcium 8.8 mg/dl (8.6-10.3); Creatinine Clr Calc Pharmacy 81.6 ml/min; Est GFR (African American) 116.1 ml/min; Est GFR (Non-African American) 100.2 ml/min; Potassium 3.4 mmol/L (3.5-5.1)
[2022-11-29 07:04] LABS: Mean Platelet Volume 9.4 fL (9.4-12.4); Platelet Count 285 K/uL (130-400)
[2022-11-29 07:20] LABS: Troponin I High Sensitivity 906.9 pg/ml (0-14)
[2022-11-29 07:21] LABS: Microcytosis Present; Polychromasia 1+; Tear Drop Cells 1+
[2022-11-29] MEDS ORDERED: ASPIRIN 81 MG ECTAB PO SCH (09:00)
[2022-11-29] MEDS ORDERED: METOPROLOL SUCC 50MG EXT REL TAB PO SCH (09:00)
[2022-11-29] MEDS ORDERED: SODIUM CHLORIDE 1 GM TABLET PO SCH (09:00)
[2022-11-29] MEDS ORDERED: NON-FORMULARY MEDICATION (Iron,Carbonyl-Vitamin C [Vitron-C] 65 mg iron- 125 mg Tablet,Del PO SCH (09:00)
[2022-11-29] MEDS ORDERED: diazePAM 5 MG TABLET PO SCH (09:00)
[2022-11-29] MEDS ORDERED: PANTOprazole 40 MG in SYRINGE 0 ML IV SCH (09:00)
[2022-11-29] MEDS ORDERED: FUROSEMIDE 20 MG TAB PO SCH (09:00)
[2022-11-29 09:15] LABS: Lyme Ab IgG w/WB Rflx Negative (Negative)
[2022-11-29] MEDS: FLUTICASONE/VILANTEROL 200/25MCG 14 PUFFS/INHALER INH SCH (09:15)
[2022-11-29] MEDS: FLUTICASONE PROPIONATE NA SPR 16 GM BTL SCH (09:16)
[2022-11-29] MEDS: UMECLIDINIUM BROMIDE 62.5MCG/BLISTER 7 PUFFS/INHALER INH SCH (09:16)
[2022-11-29] MEDS: ASCORBIC ACID 500 MG TAB PO SCH ×3 (09:17→19:31)
[2022-11-29] MEDS: PARoxetine HCL 20 MG TAB PO SCH (09:17)
[2022-11-29] MEDS: SUCRALFATE 1 GM TAB PO SCH ×2 (09:17→12:12)
[2022-11-29] MEDS: FAMOTIDINE 20 MG TAB PO SCH (09:18)
[2022-11-29] MEDS: CLOPIDOGREL BISULFATE 75 MG TAB PO SCH (09:18)
[2022-11-29] MEDS: CETIRIZINE HCL 10 MG TABLET PO SCH (09:18)
[2022-11-29] MEDS: MAGNESIUM OXIDE 400 MG TAB PO SCH (09:19)
[2022-11-29] MEDS: FERROUS SULFATE 325 MG TAB PO SCH ×3 (09:19→19:32)
[2022-11-29] MEDS: ONDANSETRON INJ 2 MG/ML 2 ML VIAL IV PRN (09:20)
--- NOTE | 2022-11-29 09:56 | Cardiology Consultation ---
Date of Consultation November 29, 2022 Assessment & Plan (1) Elevated troponin I level: (2) Hypertensive heart disease: (3) S/P AVR (aortic valve replacement): (4) Paroxysmal atrial fibrillation: (5) Nausea: (6) Fatigue: Plan 62-year-old female presents for evaluation of nausea, abdominal discomfort, and weight loss over the past 4 weeks. Recent coronary intervention including PCI x3 to undisclosed vessel/vessels noted. Patient states intervention ultimately performed due to abnormal ECG, elevated troponin, and ongoing symptoms, however, post PCI her nausea and abdominal discomfort has not improved. Adamantly denies chest discomfort or heaviness. Her ECG is abnormal, however, findings similar to prior ECG dating back to 2015. Echocardiogram demonstrating hypertensive heart disease with hyperdynamic LV function. No regional wall motion abnormality. Bioprosthetic valve present with normal gradients. I suspect patient troponin elevation is a type II event (demand ischemia in the setting of ongoing nausea, vomiting, respiratory illness secondary to enteroviru s/rhinovirus. I have ordered blood cultures due to ongoing illness and history of aortic valve replacement. She is afebrile currently. I have requested records from [facility] regarding details of cardiac catheterization and intervention. Recommend continuing clopidogrel uninterrupted with recent stent implantation. With history of paroxysmal atrial fibrillation, continue Xarelto at this time. Restart metoprolol succinate, 50 mg twice daily. Hold verapamil in the setting of ongoing abdominal symptoms. Addendum: Cardiac catheterization report obtained. Procedure performed November 19, 2022. Coronary angiography demonstrating two-vessel disease including obtuse marginal branch vessel #2 of the circumflex and posterior lateral branch vessel of the RCA. A drug-eluting stent was implanted to the second obtuse marginal as well as the posterior lateral branch vessel of the right coronary artery. The peak to peak gradient across the aortic valve was 10-15 mmHg. Moderate (40-50%)mid to distal LAD disease also noted. It appears that branch vessel coronary disease was stented in attempt to improve patient's symptoms of abdominal discomfort and nausea, however, there is been no change to her overall clinical status. I do not believe her echocardiogram or presentation is consistent with acute/subacute stent thrombosis due to Plavix failure. Recommend continued medical management. History of Present Illness Reason for Consultation: elevated troponin, recent stent Requesting Physician: Dr. Swain Attending Physician: Des Monson MD History of Present Illness 62-year-old female with history of severe COPD with multiple exacerbations, paroxysmal atrial fibrillation on chronic anticoagulation, PSVT, bioprosthetic aortic valve replacement, and recent coronary stenting presented to the emergency department with epigastric discomfort ongoing more than 1 month. Reports coronary stenting with 3 stents approximately 1 week ago. I do not have records of the procedure which was performed at [facility]. Initial high-sensitivity troponin 1000 and trending down to 906 this morning. No reported chest discomfort. ECG with diffuse T wave inversions, however, when I review ECGs in the [facility] record dating back to [address]-T wave abnormality present. Preliminary review of bedside 2D transthoracic echocardiogram demonstrates moderate left ventricular hypertrophy with hyperdynamic LV function and indirect evidence of pulmonary hypertension. No left ventricular regional wall motion abnormalities. Patient reports nausea and vomiting over the past 4 weeks. She has lost nearly 20 pounds. Voices concern regarding possible underlying Lyme disease. Viral screen positive for enterovirus/rhinovirus. Lyme screen pending. Notes mild abdominal discomfort ongoing for several weeks. Adamantly denies chest discomfort or unusual shortness of breath. Notes intermittent wheezing and cough with productive, yellow sputum. Reports recent implantation of 3 cardiac stents. Her symptoms did not change post percutaneous intervention. States ultimately the intervention was performed due to ongoing nausea and abnormal ECG. Reports aortic valve replacement at [facility] 2004. States valve was placed due to bicuspid aortic valve and history of rheumatic fever. Allergies Allergy/AdvReac Type Severity Reaction Status Date / Time citalopram [From Celexa] Allergy Intermediate Itching Verified 11/28/22 18:36 clarithromycin [From Biaxin] AdvReac Severe Abdominal Verified 11/28/22 18:36 Pain amoxicillin [From DisperMox] AdvReac Intermediate diarrhea Verified 11/28/22 18:36 cefuroxime AdvReac Intermediate Diarrhea/ra Verified 11/28/22 18:36 sh/fatigue doxycycline AdvReac Intermediate Nausea and Verified 11/28/22 18:36 Vomiting levofloxacin [From Levaquin] AdvReac Intermediate Hallucinati Verified 11/28/22 18:36 ons/dizzine ss Home Medications Medication Instructions Recorded Confirmed Type clorazepate dipotassium 15 mg 15 mg PO BID 12/01/18 11/28/22 History tablet dexlansoprazole 60 mg 60 mg PO DAILY 12/01/18 11/28/22 History capsule,biphase delayed release (Dexilant) furosemide 20 mg tablet (Lasix) 20 - 40 mg PO DAILY 12/01/18 11/28/22 History verapamil 360 mg 24 hr 180 mg PO DAILY 05/04/19 11/28/22 History capsule,extended release cetirizine 10 mg capsule (Zyrtec) 10 mg PO DAILY 12/29/19 11/28/22 History albuterol sulfate 2.5 mg/3 mL 2.5 mg (3 mL) inhalation Q4H PRN 11/01/20 11/28/22 Rx (0.083 %) solution for nebulization shortness of breath or wheezing #360 vials melatonin 10 mg tablet 10 mg PO HS PRN sleep #30 tabs 11/01/20 11/28/22 Rx tiotropium bromide 18 mcg capsule 1 cap inhalation DAILY #90 11/15/20 11/28/22 Rx with inhalation device (Spiriva inhalations with HandiHaler) nebulizers #1 ea 02/23/21 12/19/21 Rx Flutter Valve #1 ea 05/01/21 12/19/21 Rx albuterol sulfate 90 mcg/actuation 2 puff inhalation Q4H PRN 05/29/21 11/28/22 Rx aerosol inhaler (ProAir HFA) shortness of breath or wheezing #18 grams clopidogrel 75 mg tablet 75 mg PO QAM 11/28/22 11/28/22 History famotidine 20 mg tablet 20 mg PO DAILY 11/28/22 11/28/22 History fluticasone 500 mcg-salmeterol 50 1 inh inhalation BID 11/28/22 11/28/22 History mcg/dose blistr powdr for inhalation (Advair Diskus) fluticasone propionate 50 2 spray intranasal DAILY 11/28/22 11/28/22 History mcg/actuation nasal spray,suspension ipratropium 0.5 mg-albuterol 3 mg 3 ml inhalation Q6H PRN Wheezing 11/28/22 11/28/22 History (2.5 mg base)/3 mL nebulization soln iron,carbonyl 65 mg-vitamin C 125 1 tab PO PC 11/28/22 11/28/22 History mg tablet,delayed release (Vitron-C) loperamide 2 mg tablet 2 mg PO DIRECTED PRN Diarrhea 11/28/22 11/28/22 Histo ry magnesium oxide 800 mg PO QAM 11/28/22 11/28/22 History ondansetron HCl 4 mg tablet 4 mg PO Q6H PRN NAUSEA/VOMITING 11/28/22 11/28/22 History paroxetine HCl 20 mg tablet (Paxil) 20 mg PO DAILY 11/28/22 11/28/22 History rivaroxaban 20 mg tablet (Xarelto) 20 mg PO QDD 11/28/22 11/28/22 History sodium chloride 1,000 mg soluble 1,000 mg PO BID 11/28/22 11/28/22 History tablet sucralfate 1 gram tablet 1 g PO ACHS 11/28/22 11/28/22 History metoprolol succinate 50 mg capsule 50 mg PO BID 11/29/22 11/29/22 History sprinkle, ext. release 24 hr Patient History Medical History Acute bronchitis Acute sinusitis Anemia Asthma Chronic bronchitis Chronic obstructive pulmonary disease Closed rib fracture Current tobacco use Depression Disorder of bone and cartilage Esophageal reflux Exposure to mold Fatigue Hyponatremia Mitral valve disorder Oral thrush Osteoporosis Peptic ulcer Rheumatic heart disease Vaginal candidiasis Witnessed apneic spells Surgical History History of cataract surgery History of cholecystectomy History of laparoscopy Exploratory Family History Mother COPD (chronic obstructive pulmonary disease) Hypertension Transient ischemic attack Father Laryngeal cancer Brother Prostate cancer Social History Smoking Status: Former smoker Hx Alcohol Use: No Hx Substance Use: No Preferred Language: Swedish Communication Ability: Effective Lip Cutter And Scorer Required: No Beliefs That Will Affect Care: Anglican Current Living Situation: Family Current Living Situation Comment: with son & dtr in law at the moment Feels Safe at Home: Yes Safety Concerns: Feels Safe At This Time Review of Systems Review of Systems: All systems reviewed & are unremarkable except as noted in Subjective Physical Exam Constitutional: + ill appearing Respiratory: no respiratory distress, no labored breathing and no retractions Auscultation: + rhonchi and + wheezes Cardiovascular: Rate/Rhythm: regular rate and regular rhythm Heart Sounds: normal S1, normal S2 and + murmur (2/6 systolic ejection murmur heard best at the right second costal space) Vessels: no JVD and no carotid bruit Extremities: no edema Gastrointestinal (Abdomen): Inspection/Auscultation: abdomen not distended Percussion/Palpation: abdomen soft; no guarding and abdomen not rigid Neurologic: CN's II-XI intact bilaterally and moves all extremities; no focal motor deficits Results & Data Vital Signs (Past 12 Hours) Vital Signs Pulse Pulse Resp BP BP Pulse Ox Pulse Ox 11/29/22 09:33 64 20 151/104 H 95 11/29/22 07:02 60 11/29/22 06:49 62 16 98 11/29/22 03:00 50 L 16 100 11/29/22 03:46 100 11/29/22 01:38 50 L 12 96 11/29/22 01:38 11/29/22 01:05 46 L 16 109/72 100 11/28/22 23:00 47 L 16 100 11/28/22 23:00 125/75 11/28/22 22:30 47 L 18 100 11/28/22 22:00 47 L 18 100 11/28/22 22:00 121/69 O2 Del Method O2 Del Method O2 Flow Rate O2 Flow Rate 11/29/22 09:33 2 11/29/22 07:02 11/29/22 06:49 Nasal Cannula 2 11/29/22 03:00 Nasal Cannula 2 11/29/22 03:46 Nasal Cannula 2 11/29/22 01:38 Nasal Cannula 11/29/22 01:38 Nasal Cannula 11/29/22 01:05 Room Air 11/28/22 23:00 11/28/22 23:00 11/28/22 22:30 11/28/22 22:00 11/28/22 22:00 Laboratory Results Cardiac Enzymes 11/28/22 11/28/22 11/29/22 Range/Units 16:08 20:45 05:48 AST 19 (13-39) U/L Troponin I High Sens 1000.6 H* 956.7 H* 906.9 H* (0-14) pg/ml CBC 11/28/22 11/29/22 Range/Units 16:08 05:48 WBC 8.78 6.80 (4.8-10.8) K/ul RBC 5.49 H 4.94 (4.20-5.40) M/uL Hgb 11.1 L 10.0 L (12.0-16.0) g/dl Hct 34.7 L 31.2 L (37.0-47.0) % Plt Count 332 285 (130-400) K/uL Neut # (Auto) 6.38 4.68 (1.40-6.50) K/uL Lymph # (Auto) 1.05 L 0.75 L (1.2-3.4) K/uL [place] # (Auto) 1.05 H 0.88 H (0.11-0.59) K/uL Eos # (Auto) 0.21 0.42 (0-0.50) K/uL Baso # (Auto) 0.05 0.04 (0-0.2) K/uL Comprehensive Metabolic Panel 11/28/22 11/29/22 Range/Units 16:08 05:48 Sodium 126 L 127 L (136-145) mmol/L Potassium 3.4 L 3.4 L (3.5-5.1) mmol/L Chloride 82 L 85 L (98-107) mmol/L Carbon Dioxide 37 H 38 H (21-32) mmol/L BUN 5 L 4 L (6-23) mg/dl Creatinine 0.67 0.58 L (0.6-1.2) mg/dl Glucose 103 H 82 (70-99(Fasting)) mg/dl Calcium 9.6 8.8 (8.6-10.3) mg/dl AST 19 (13-39) U/L ALT 10 (7-52) U/L Alkaline Phosphatase 56 (34-104) U/L Total Protein 7.0 (6.0-8.3) gm/dl Albumin 4.1 (3.4-5.0) gm/dl Intake and Output 11/28/22 11/29/22 11/29/22 22:59 06:59 14:59 Intake Total 220 / 220 Output Total 0 / 0 Balance 220 / 220 Intake: IV 220 / 220 PANTOprazole 40 mg In Dextrose 100 / 100 5% 100 ml @ 8 MG/HR 20 mls/hr IV Q5H [facility] Rx#:[id number] PANTOprazole 80 mg In Dextrose 120 / 120 5% 100 ml @ 400 mls/hr IV NOW ONE Rx#:[id number] Oral 0 / 0 Output: Urine 0 / 0 Other: Weight 58.4 kg 58.4 kg Weight Measurement Method Chair Scale Built in [facility]
--- NOTE | 2022-11-29 10:46 | Gastrointestinal Consultation ---
Date of Consultation November 29, 2022 Assessment & Plan (1) Nausea: Likely secondary to gastritis, A-fib, NSTEMI Plan 1. Antiemetics. 2. Will request EGD from [facility]. 3. Continue oral PPI, H2 [place]. Pt believes carafate worsens the nausea, so will DC that. 4. Will arrange stool testing for H Pylori. 5. No clear indication to repeat endoscopy at this time. No GI indication for advancing diet but will defer to primary and cardiology. Supervising Physician Co-Signing Physician Notes Patient was seen and examined on 11/29 with FRANCIA Cardona whose note reflects our findings and plan. History of Present Illness Reason for Consultation: epigastric pain Requesting Physician: Dr. Swain Attending Physician: Des Monson MD History of Present Illness Ms. Eliz Pichardo is a 62-year-old female patient of Dr. Welsh with a history of HLD, COPD on home oxygen 2 L, CAD, MVP, S/P Aortic valve replacement w bioprosthetic, former smoker, SVT, hx of enlarged thoracic aorta,Raynaud's, MVP, HTN, GERD, thalassemia minor , psoriasis, depression, former smoker She has had several health events recently. A month ago, she had A-fib and was started on Eliquis. At that time, she started having persistent nausea, weakness, fatigue, hot flashes. She has lost 20 lbs due to these symptoms. The Eliquis was changed to Xeralto w/o change in nausea. Then, Last week at [facility], she experienced NSTEMI and had 3 cardiac stents placed. She tells me that Dr. Thorpe did an EGD w "irritation" in the stomach 1 1/2 weeks ago but that they were unable to bx to r/o H Pylori because she was on a blood thinner. She is maintained on Nexium 60mg daily. She actually denies any significant abdominal pain and has not had any black or red blood in her BMs. No vomiting. Nausea is her main symptom. The zofran given here last night was helpful. On arrival, her troponin is significantly elevated and cardiology is evaluating. Allergies Allergy/AdvReac Type Severity Reaction Status Date / Time citalopram [From Celexa] Allergy Intermediate Itching Verified 11/28/22 18:36 clarithromycin [From Biaxin] AdvReac Severe Abdominal Verified 11/28/22 18:36 Pain amoxicillin [From DisperMox] AdvReac Intermediate diarrhea Verified 11/28/22 18:36 cefuroxime AdvReac Intermediate Diarrhea/ra Verified 11/28/22 18:36 sh/fatigue doxycycline AdvReac Intermediate Nausea and Verified 11/28/22 18:36 Vomiting levofloxacin [From Levaquin] AdvReac Intermediate Hallucinati Verified 11/28/22 18:36 ons/dizzine ss Home Medications Medication Instructions Recorded Confirmed Type clorazepate dipotassium 15 mg 15 mg PO BID 12/01/18 11/28/22 History tablet dexlansoprazole 60 mg 60 mg PO DAILY 12/01/18 11/28/22 History capsule,biphase delayed release (Dexilant) cetirizine 10 mg capsule (Zyrtec) 10 mg PO DAILY 12/29/19 11/28/22 History albuterol sulfate 2.5 mg/3 mL 2.5 mg (3 mL) inhalation Q4H PRN 11/01/20 11/28/22 Rx (0.083 %) solution for nebulization shortness of breath or wheezing #360 vials melatonin 10 mg tablet 10 mg PO HS PRN sleep #30 tabs 11/01/20 11/28/22 Rx tiotropium bromide 18 mcg capsule 1 cap inhalation DAILY #90 11/15/20 11/28/22 Rx with inhalation device (Spiriva inhalations with HandiHaler) nebulizers #1 ea 02/23/21 12/19/21 Rx Flutter Valve #1 ea 05/01/21 12/19/21 Rx albuterol sulfate 90 mcg/actuation 2 puff inhalation Q4H PRN 05/29/21 11/28/22 Rx aerosol inhaler (ProAir HFA) shortness of breath or wheezing #18 grams clopidogrel 75 mg tablet 75 mg PO QAM 11/28/22 11/28/22 History famotidine 20 mg tablet 20 mg PO DAILY 11/28/22 11/28/22 History fluticasone 500 mcg-salmeterol 50 1 inh inhalation BID 11/28/22 11/28/22 History mcg/dose blistr powdr for inhalation (Advair Diskus) fluticasone propionate 50 2 spray intranasal DAILY 11/28/22 11/28/22 History mcg/actuation nasal spray,suspension ipratropium 0.5 mg-albuterol 3 mg 3 ml inhalation Q6H PRN Wheezing 11/28/22 11/28/22 History (2.5 mg base)/3 mL nebulization soln iron,carbonyl 65 mg-vitamin C 125 1 tab PO PC 11/28/22 11/28/22 History mg tablet,delayed release (Vitron-C) loperamide 2 mg tablet 2 mg PO DIRECTED PRN Diarrhea 11/28/22 11/28/22 History magnesium oxide 800 mg PO QAM 11/28/22 11/28/22 History ondansetron HCl 4 mg tablet 4 mg PO Q6H PRN NAUSEA/VOMITING 11/28/22 11/28/22 History paroxetine HCl 20 mg tablet (Paxil) 20 mg PO DAILY 11/28/22 11/28/22 History rivaroxaban 20 mg tablet (Xarelto) 20 mg PO QDD 11/28/22 11/28/22 History sucralfate 1 gram tablet 1 g PO ACHS 11/28/22 11/28/22 History clonazepam 0.5 mg tablet 0.5 mg PO BID 12/04/22 12/04/22 History L.acidop,casei,lactis,rham-B.lact,jenny 2 cap PO DAILY #20 caps 12/05/22 Rx 625 mg (10 billion cell) capsule (Advanced Probiotic) clotrimazole 10 mg carol 10 mg buccal [id number] 10 days #60 12/05/22 Rx tabs docusate sodium 100 mg capsule 100 mg PO BID PRN constipation #20 12/05/22 Rx caps doxycycline hyclate 100 mg capsule 100 mg PO BID #8 caps 12/05/22 Rx furosemide 40 mg tablet 40 mg PO QAM #30 tabs 12/05/22 Rx losartan 50 mg tablet 50 mg PO QAM #30 tabs 12/05/22 Rx metoprolol succinate 50 mg 50 mg PO BID #60 tabs 12/05/22 Rx tablet,extended release 24 hr olanzapine 2.5 mg tablet 2.5 mg PO HS #10 tabs 12/05/22 Rx prednisone 20 mg tablet 20 mg PO DAILY #3 tabs 12/05/22 Rx Patient History Medical History Acute bronchitis Acute sinusitis Anemia Asthma Chronic bronchitis Chronic obstructive pulmonary disease Closed rib fracture Current tobacco use Depression Disorder of bone and cartilage Esophageal reflux Exposure to mold Fatigue Hyponatremia Mitral valve disorder Oral thrush Osteoporosis Peptic ulcer Rheumatic heart disease Vaginal candidiasis Witnessed apneic spells Surgical History History of cataract surgery History of cholecystectomy History of laparoscopy Exploratory Family History Mother COPD (chronic obstructive pulmonary disease) Hypertension Transient ischemic attack Father Laryngeal cancer Brother Prostate cancer Social History Smoking Status: Former smoker Hx Alcohol Use: No Hx Substance Use: No Preferred Language: Tamazight Communication Ability: Effective Safety Leader Required: No Beliefs That Will Affect Care: Christian Current Living Situation: Family Current Living Situation Comment: with son & dtr in law at the moment Feels Safe at Home: Yes Review of Systems Constitutional: + sweats, + fatigue, + weakness and + weight loss Eyes: no problem reported Ear, Nose, Mouth, Throat: no sore throat, no dysphagia, no pain with swallowing and no problem reported Respiratory: chronic SOB, recently sl worsened Cardiovascular: no chest pain, no lightheadedness, no syncope and no edema Gastrointestinal: As per HPI, otherwise (-) Musculoskeletal: no problem reported Integumentary: no jaundice, no rashes Neurologic: no numbness, no tremor(s), no headache(s) and no confusion Psychiatric: no problem reported Hematologic / Lymphatic: bruises very easily on Xeralto/Plavix but no nose/gum bleeds and no gross GI bleeding Physical Exam Constitutional: + ill appearing (chronically), + thin and cooperative; no acute distress Eyes: PERRL, conjunctivae normal, anicteric sclerae ENMT: external ear and nose normal, oropharynx normal Neck: trachea midline, no thyromegaly Respiratory: normal respiratory effort, lungs clear to auscultation Cardiovascular: 2/5 systolic murmur, sl irregular, normal rate Gastrointestinal (Abdomen): minimal epigastric tenderness; soft, non distended, no masses. Musculoskeletal: Normal strengths/equal bilaterally; + clubbing Skin: pale, dry, warm Neurologic: PERRL, EOMI, accommodation nl, no face palsy, no dysarthria Psychiatric: A+Ox3, euthymic affect Lymphatic: no cervical or axillary lymphadenopathy Results & Data Vital Signs (Past 12 Hours) Vital Signs Pulse Pulse Resp BP BP Pulse Ox Pulse Ox 11/29/22 09:33 64 20 151/104 H 95 11/29/22 07:02 60 11/29/22 06:49 62 16 98 11/29/22 03:00 50 L 16 100 11/29/22 03:46 100 11/29/22 01:38 50 L 12 96 11/29/22 01:38 11/29/22 01:05 46 L 16 109/72 100 11/28/22 23:00 47 L 16 100 11/28/22 23:00 125/75 11/28/22 22:30 47 L 18 100 O2 Del Method O2 Del Method O2 Flow Rate O2 Flow Rate 11/29/22 09:33 2 11/29/22 07:02 11/29/22 06:49 Nasal Cannula 2 11/29/22 03:00 Nasal Cannula 2 11/29/22 03:46 Nasal Cannula 2 11/29/22 01:38 Nasal Cannula 11/29/22 01:38 Nasal Cannula 11/29/22 01:05 Room Air 11/28/22 23:00 11/28/22 23:00 11/28/22 22:30 Laboratory Results WBC 6.8, Hb 10, HCT 31, PLT 285, NA 127, K3.4, CL 85, CO2 38, BUN 4, CR 0.5, glucose 82 Diagnostic Findings CTAP w IV contrast 11/29/22: 1. No hydronephrosis or delayed nephrogram. 2. Normal appendix. 3. Cholecystectomy. 4. Diverticulosis, without acute diverticulitis. No small bowel obstruction. No free air. CXR 11/29/22: No acute cardiopulmonary findings. Emphysema. No change in appearance of the chest.
[2022-11-29 11:25] LABS: BUN Creatinine Ratio 6.8 (10-20); Calcium 8.7 mg/dl (8.6-10.3); Creatinine Clr Calc Pharmacy 80.2 ml/min; Est GFR (African American) 115.5 ml/min; Est GFR (Non-African American) 99.6 ml/min; Potassium 3.6 mmol/L (3.5-5.1)
[2022-11-29] MEDS ORDERED: POTASSIUM CHLORIDE CRTAB 20 MEQ TABCR PO STA (11:28)
[2022-11-29 11:32] LABS: Lyme Ab IgM w/WB Rflx Equivocal (Negative)
[2022-11-29] MEDS: METOPROLOL SUCC 50MG EXT REL TAB PO SCH ×2 (12:09→19:32)
[2022-11-29] MEDS: ACETAMINOPHEN 325 MG TAB PO PRN (12:09)
--- NOTE | 2022-11-29 12:44 | Nephrology Consultation ---
Date of Consultation November 29, 2022 Assessment & Plan (1) Hyponatremia: she has had mild hyponatremia for the last few years with serum sodium ranging 130-134 and was intermittently getting salt tablet and was on chronic Lasix. as per the patient's salt tablets stopped about a month ago because of high b lood pressure. She has never seen a reading professor for this problem. I did not see urine osmolarity or urine electrolytes done as an outpatient either. it is not possible to categorize hyponatremia without urine osmolarity serum osmolarity urine sodium and urine creatinine and will do now. she is getting IV fluid which I will continue till we get the results of the urine test. Even though patient has been losing weight and not eating much her blood pressure is high which means she can not be really super volume depleted. Will do BMP again later today and further decide regarding IV fluid /diuretics. we will add urea 15 g twice daily if the urine osmolarity is high I will also add Lasix IV to cause free water diuresis and lowering the urine osmolarity. there is also likelihood of significant component of low solute diet AKA tea and toast syndrome as she has not been eating much for the last few weeks. FFR 1200 ml per day History of Present Illness Reason for Consultation: Hyponatremia Attending Physician: eDs Monson MD History of Present Illness 62/F With history of chronic mild hyponatremia for the last few years as an outpatient. Her sodium has been in the 130-134 range for the last few years. she has history of COPD on home oxygen 2 L, chronic seasonal allergic rhinitis, history of SVT, history of enlarged thoracic aorta, history of Raynaud's phenomenon, history of mitral valve prolapse, history of hypertension, generalized osteoarthritis, thalassemia minor, psoriasis, depression, s/p aortic valve replacement bioprosthetic valve. she has been admitted twice in [facility] in [place] within the last 1 month--- 1st admission was for pneumonia and she had AFib and was started on Eliquis. Then she was admitted 2 weeks later and this time had cardiac stents placed. however the main reason for her symptoms is nausea intermittent epigastric pain significant loss of appetite and major weight loss--- she claims 20 lb in 1 month. she did not feel any better after the cardiac stenting. she also had EGD which showed gastritis. As her abdominal pain and nausea is not improving her PCP advised to come to the [facility] instead of [facility]. Denies any chest pain or shortness of breath. Will ambulating she is not getting chest pain. Afebrile. No headache. Vision is okay. No sore throat. No headaches. Normal bowel and bladder movements. her sodium is low at 126 on admission and overnight she got IV fluid and with that sodium is 127 we do not have urine test yet to categorize the hyponatremia at home she was salt tablet twice a day ( But stopped recently because of high BP ) as well as Lasix but does not appear she has seen a reading professor in the past. 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 even here her blood pressure is running high cardiology has seen the patient for elevated troponin and further management plan is being discussed but does not appear she is getting another cardiac catheterization. gastroenterology has also seen the patient for nausea poor appetite and weight loss. No obvious cause found as of now. Past medical history as mentioned above Past surgical history colonoscopy, cardiac cath, bioprosthetic aortic valve replacement Allergies Allergy/AdvReac Type Severity Reaction Status Date / Time citalopram [From Celexa] Allergy Intermediate Itching Verified 11/28/22 18:36 clarithromycin [From Biaxin] AdvReac Severe Abdominal Verified 11/28/22 18:36 Pain amoxicillin [From DisperMox] AdvReac Intermediate diarrhea Verified 11/28/22 18:36 cefuroxime AdvReac Intermediate Diarrhea/ra Verified 11/28/22 18:36 sh/fatigue doxycycline AdvReac Intermediate Nausea and Verified 11/28/22 18:36 Vomiting levofloxacin [From Levaquin] AdvReac Intermediate Hallucinati Verified 11/28/22 18:36 ons/dizzine ss Home Medications Medication Instructions Recorded Confirmed Type clorazepate dipotassium 15 mg 15 mg PO BID 12/01/18 11/28/22 History tablet dexlansoprazole 60 mg 60 mg PO DAILY 12/01/18 11/28/22 History capsule,biphase delayed release (Dexilant) furosemide 20 mg tablet (Lasix) 20 - 40 mg PO DAILY 12/01/18 11/28/22 History verapamil 360 mg 24 hr 180 mg PO DAILY 05/04/19 11/28/22 History capsule,extended release cetirizine 10 mg capsule (Zyrtec) 10 mg PO DAILY 12/29/19 11/28/22 History albuterol sulfate 2.5 mg/3 mL 2.5 mg (3 mL) inhalation Q4H PRN 11/01/20 11/28/22 Rx (0.083 %) solution for nebulization shortness of breath or wheezing #360 vials melatonin 10 mg tablet 10 mg PO HS PRN sleep #30 tabs 11/01/20 11/28/22 Rx tiotropium bromide 18 mcg capsule 1 cap inhalation DAILY #90 11/15/20 11/28/22 Rx with inhalation device (Spiriva inhalations with HandiHaler) nebulizers #1 ea 02/23/21 12/19/21 Rx Flutter Valve #1 ea 05/01/21 12/19/21 Rx albuterol sulfate 90 mcg/actuation 2 puff inhalation Q4H PRN 05/29/21 11/28/22 Rx aerosol inhaler (ProAir HFA) shortness of breath or wheezing #18 grams clopidogrel 75 mg tablet 75 mg PO QAM 11/28/22 11/28/22 History famotidine 20 mg tablet 20 mg PO DAILY 11/28/22 11/28/22 History fluticasone 500 mcg-salmeterol 50 1 inh inhalation BID 11/28/22 11/28/22 History mcg/dose blistr powdr for inhalation (Advair Diskus) fluticasone propionate 50 2 spray intranasal DAILY 11/28/22 11/28/22 History mcg/actuation nasal spray,suspension ipratropium 0.5 mg-albuterol 3 mg 3 ml inhalation Q6H PRN Wheezing 11/28/22 11/28/22 History (2.5 mg base)/3 mL nebulization soln iron,carbonyl 65 mg-vitamin C 125 1 tab PO PC 11/28/22 11/28/22 History mg tablet,delayed release (Vitron-C) loperamide 2 mg tablet 2 mg PO DIRECTED PRN Diarrhea 11/28/22 11/28/22 History magnesium oxide 800 mg PO QAM 11/28/22 11/28/22 History metoprolol succinate 200 mg 200 mg PO DAILY 11/28/22 11/28/22 History tablet,extended release 24 hr ondansetron HCl 4 mg tablet 4 mg PO Q6H PRN NAUSEA/VOMITING 11/28/22 11/28/22 History paroxetine HCl 20 mg tablet (Paxil) 20 mg PO DAILY 11/28/22 11/28/22 History rivaroxaban 20 mg tablet (Xarelto) 20 mg PO QDD 11/28/22 11/28/22 History sodium chloride 1,000 mg soluble 1,000 mg PO BID 11/28/22 11/28/22 History tablet sucralfate 1 gram tablet 1 g PO ACHS 11/28/22 11/28/22 History Patient History Medical History Acute bronchitis Acute sinusitis Anemia Asthma Chronic bronchitis Chronic obstructive pulmonary disease Closed rib fracture Current tobacco use Depression Disorder of bone and cartilage Esophageal reflux Exposure to mold Fatigue Hyponatremia Mitral valve disorder Oral thrush Osteoporosis Peptic ulcer Rheumatic heart disease Vaginal candidiasis Witnessed apneic spells Surgical History History of cataract surgery History of cholecystectomy History of laparoscopy Exploratory Family History Mother COPD (chronic obstructive pulmonary disease) Hypertension Transient ischemic attack Father Laryngeal cancer Brother Prostate cancer Social History Smoking Status: Former smoker Hx Alcohol Use: No Hx Substance Use: No Preferred Language: Albanian Communication Ability: Effective Hearing Screener Required: No Beliefs That Will Affect Care: Jewish Current Living Situation: Family Current Living Situation Comment: with son & dtr in law at the moment Feels Safe at Home: Yes Safety Concerns: Feels Safe At This Time Physical Exam Physical Exam: awake alert and oriented x3. No respiratory distress. Very reliable historian and was able to give me a full detailed account of her complicated medical history Constitutional: awake and alert no distress not febrile Neck: supple no JVD Respiratory: bilateral decreased breath sound slightly prolonged expiration Cardiovascular: S1 and S-2 regular. Systolic murmur heard. No edema Gastrointestinal (Abdomen): soft and nontender Skin: no rash noted Results & Data Vital Signs (Past 12 Hours) Vital Signs Pulse Pulse Resp BP BP Pulse Ox Pulse Ox 11/29/22 12:00 65 18 165/90 H 95 11/29/22 09:33 64 20 151/104 H 95 11/29/22 07:02 60 11/29/22 06:49 62 16 98 11/29/22 03:00 50 L 16 100 11/29/22 03:46 100 11/29/22 01:38 50 L 12 96 11/29/22 01:38 11/29/22 01:05 46 L 16 109/72 100 O2 Del Method O2 Del Method O2 Flow Rate O2 Flow Rate 11/29/22 12:00 2 11/29/22 09:33 2 11/29/22 07:02 11/29/22 06:49 Nasal Cannula 2 11/29/22 03:00 Nasal Cannula 2 11/29/22 03:46 Nasal Cannula 2 11/29/22 01:38 Nasal Cannula 11/29/22 01:38 Nasal Cannula 11/29/22 01:05 Room Air Laboratory Results serum sodium 126 on admission most recent 127. She has had mild hyponatremia with a serum sodium in the 130-134 range for the last few years. Urine analysis showed high specific gravity. Other urine tests not done yet Diagnostic Findings CT abdomen and pelvis no significant finding noted
[2022-11-29] MEDS: DOXYCYCLINE HYCLATE 100 MG in DEXTROSE 5% 100 ML IV SCH (14:42)
--- NOTE | 2022-11-29 15:27 | Hospitalist Progress Note ---
Date of Service November 29, 2022 Assessment & Plan (1) NSTEMI (non-ST elevated myocardial infarction): Plan: 62-year-old female history of hyperlipidemia COPD on home oxygen 2 L, chronic seasonal allergic rhinitis, history of SVT, history of enlarged thoracic aorta, history of Raynaud's phenomenon, history of mitral valve prolapse, history of hypertension, history of GERD, generalized osteoarthritis, thalassemia minor, psoriasis, depression, s/p aortic valve replacement bioprosthetic valve, former smoker, recently last week had cardiac cath and s/p 3 stents at [facility] in [place] as per patient . Patient states having epigastric pain going on for last 1 month also with nausea and poor oral intake. Found to have elevated troponin and hyponatremia. Elevated high-sensitivity troponin likely secondary to demand ischemia. History of recent cardiac cath done on [facility]: Coronary angiography demonstrating two-vessel disease including obtuse marginal branch vessel #2 of the circumflex and posterior lateral branch vessel of the RCA. A drug-eluting stent was implanted to the second obtuse marginal as well as the posterior lateral branch vessel of the right coronary artery. The peak to peak gradient across the aortic valve was 10-15 mmHg. Moderate (40-50%)mid to distal LAD disease also noted Initial troponin 1000 and repeat is 956 EKG on admission personally reviewed; normal sinus rhythm with ST changes in inferior leads. No chest pain. Echocardiogram results reviewed; EF of 65 to 70%; moderate concentric left ventricular hypertrophy. Bioprosthetic aortic valve. Ascending aorta mildly enlarged; 4.4 to 45 cm. Continue on aspirin, Plavix. Metoprolol 50 mg twice a day. Verapamil on hold Continue monitor on telemetry Epigastric pain Persistent nausea Patient reports EGD in [facility] recently. CT abdomen/pelvis personally reviewed; no acute intra-abdominal finding GI on board; stool study for H. pylori ordered. Protonix changed to once daily. Will start on Zyprexa 2.5 mg at bedtime for nausea Zofran as needed. Advance diet as tolerated. Hyponatremia History of mild hyponatremia for last few years. Serum sodium ranging from 1 30-1 34. Sodium 126 on admission, was on salt tablets on admission. Urine osmolarity of 173 and urine random sodium of 13 Hyponatremia likely due to tea and toast diet ( low solute diet) Monitor BMP. Fluid restriction of 1200 cc. Paroxysmal atrial fibrillation On metoprolol 50 mg twice daily On Xarelto Holding off on verapamil. Equivocal lyme IgM Started on empiric doxycycline Full we will follow-up on confirmation test. COPD on home oxygen Continue home inhalers and nebs as needed Enterorhinovirus on bio fire Supportive care Isolation precautions DVT prophylaxis on Xarelto Time spent evaluating patient, direct bedside care, chart review, placing orders, interpretation of diagnostic studies, discussion with consultants, patient, and family members, as well as other required patient management activities is 60 minutes. Please note the above document was generated using voice recognition software. It may contain grammatical, syntax or spelling errors. Any formal questions or concerns about the content, text or information contained within the body of this dictation should be directly addressed to the provider for clarification Admission and Anticipated Discharge Date Admission Date: November 28, 2022 Subjective Patient seen and examined at bedside. She reports persistent nausea; no episode of vomiting. Denies chest pain or shortness of breath. Review of Systems Review of Systems: All systems reviewed & are unremarkable except as noted in Subjective Physical Exam Physical Exam: Constitutional: Awake, alert orient x3; appears tired. Respiratory: Bilateral basal breath sound. Cardiovascular: RRR, no murmur, no edema Vessels: no JVD or carotid bruit Chest: normal inspection of chest Abdomen: normal bowel sounds, soft, nontender, no hepatosplenomegaly Musculoskeletal: no cyanosis or clubbing, extremities motor strength 5/5 Skin: no rashes, warm and dry normal turgor Neurologic: PERRL, EOMI, accommodation nl, no face palsy, no dysarthria CN's II- XI intact bilaterally and moves all extremities Psychiatric: A+Ox3, euthymic affect Results & Data Results & Data Vital Signs (Past 12 Hours) Vital Signs Temp Pulse Pulse Pulse Resp BP BP 11/29/22 15:11 75 16 11/29/22 13:54 36.6 C 64 18 169/105 H 11/29/22 12:00 65 18 165/90 H 11/29/22 09:33 64 20 151/104 H 11/29/22 07:02 60 11/29/22 06:49 62 16 11/29/22 03:46 Pulse Ox Pulse Ox O2 Del Method O2 Del Method O2 Flow Rate O2 Flow Rate 11/29/22 15:11 97 Nasal Cannula 2 11/29/22 13:54 99 Room Air 11/29/22 12:00 95 2 11/29/22 09:33 95 2 11/29/22 07:02 11/29/22 06:49 98 Nasal Cannula 2 11/29/22 03:46 100 Nasal Cannula 2 Laboratory Results Laboratory Results WBC 6.80 K/ul (4.8-10.8) 11/29/22 05:48 RBC 4.94 M/uL (4.20-5.40) 11/29/22 05:48 Hgb 10.0 g/dl (12.0-16.0) L 11/29/22 05:48 Hct 31.2 % (37.0-47.0) L 11/29/22 05:48 MCV 63.2 fL (80.0-100.0) L 11/29/22 05:48 MCH 20.2 pg (25.0-34.0) L 11/29/22 05:48 MCHC 32.1 g/dL (32.0-36.0) 11/29/22 05:48 RDW Std Deviation 30.7 fL (36.4-46.3) L 11/29/22 05:48 RDW Coeff of Emil 14.4 % (11.5-14.5) 11/29/22 05:48 Plt Count 285 K/uL (130-400) 11/29/22 05:48 MPV 9.4 fL (9.4-12.4) 11/29/22 05:48 Immature Gran % (Auto) 0.4 % 11/29/22 05:48 Neut % (Auto) 68.9 % 11/29/22 05:48 Lymph % (Auto) 11.0 % 11/29/22 05:48 [place] % (Auto) 12.9 % 11/29/22 05:48 Eos % (Auto) 6.2 % 11/29/22 05:48 Baso % (Auto) 0.6 % 11/29/22 05:48 Neut # (Auto) 4.68 K/uL (1.40-6.50) 11/29/22 05:48 Lymph # (Auto) 0.75 K/uL (1.2-3.4) L 11/29/22 05:48 [place] # (Auto) 0.88 K/uL (0.11-0.59) H 11/29/22 05:48 Eos # (Auto) 0.42 K/uL (0-0.50) 11/29/22 05:48 Baso # (Auto) 0.04 K/uL (0-0.2) 11/29/22 05:48 Immature Gran # (Auto) 0.03 K/uL (0.01-0.20) 11/29/22 05:48 Platelet Estimate Normal (Normal) 11/28/22 16:08 Polychromasia 1+ 11/29/22 05:48 Microcytosis Present 11/29/22 05:48 Tear Drop Cells 1+ 11/29/22 05:48 Sodium 127 mmol/L (136-145) L 11/29/22 10:40 Potassium 3.6 mmol/L (3.5-5.1) 11/29/22 10:40 Chloride 86 mmol/L (98-107) L 11/29/22 10:40 Carbon Dioxide 37 mmol/L (21-32) H 11/29/22 10:40 Anion Gap 4 (3-11) 11/29/22 10:40 BUN 4 mg/dl (6-23) L 11/29/22 10:40 Creatinine 0.59 mg/dl (0.6-1.2) L 11/29/22 10:40 Est Cr Clr Drug Dosing 80.2 ml/min 11/29/22 10:40 Est GFR ( Amer) 115.5 ml/min 11/29/22 10:40 Est GFR (Non-Af Amer) 99.6 ml/min 11/29/22 10:40 BUN/Creatinine Ratio 6.8 (10-20) L 11/29/22 10:40 Glucose 83 mg/dl (70-99(Fasting)) 11/29/22 10:40 Osmolality 262 mOsm/kg (280-300) L 11/29/22 05:48 Calcium 8.7 mg/dl (8.6-10.3) 11/29/22 10:40 Phosphorus 3.7 mg/dl (2.5-4.9) 11/29/22 12:21 Magnesium 2.0 mg/dl (1.7-2.4) 11/29/22 05:48 Total Bilirubin 0.8 mg/dl (0.2-1.0) 11/28/22 16:08 AST 19 U/L (13-39) 11/28/22 16:08 ALT 10 U/L (7-52) 11/28/22 16:08 Alkaline Phosphatase 56 U/L (34-104) 11/28/22 16:08 Troponin I High Sens 876.0 pg/ml (0-14) H* 11/29/22 10:40 Total Protein 7.0 gm/dl (6.0-8.3) 11/28/22 16:08 Albumin 4.1 gm/dl (3.4-5.0) 11/28/22 16:08 Globulin 2.9 gm/dl (2.5-4.0) 11/28/22 16:08 Albumin/Globulin Ratio 1.4 (0.9-2) 11/28/22 16:08 Lipase 13 U/L (11-82) 11/28/22 16:08 Urine Color Yellow 11/28/22 20:50 Urine Appearance Clear (Clear) 11/28/22 20:50 Urine pH 8.0 (4.5-7.5) H 11/28/22 20:50 Ur Specific [place] > 1.045 (1.000-1.030) H 11/28/22 20:50 Urine Protein Negative (Negative) 11/28/22 20:50 Urine Glucose (UA) Negative (Negative) 11/28/22 20:50 Urine Ketones Negative (Negative) 11/28/22 20:50 Urine Blood Negative (Negative) 11/28/22 20:50 Urine Nitrite Negative (Negative) 11/28/22 20:50 Urine Bilirubin Negative (Negative) 11/28/22 20:50 Urine Urobilinogen Negative (Negative) 11/28/22 20:50 Ur Leukocyte Esterase Negative (Negative) 11/28/22 20:50 Urine Osmolality 173 mOsm/kg (500-800) L 11/29/22 11:08 Ur Random Sodium 13 mmol/L 11/29/22 11:08 Adenovirus (PCR) Not Detected (NotDetected) 11/28/22 Unknown B. pertussis DNA (PCR) Not Detected (NotDetected) 11/28/22 Unknown B.parapertussis DNA PCR Not Detected (NotDetected) 11/28/22 Unknown Lyme Disease IgG Ab Negative (Negative) 11/29/22 05:48 Lyme Disease IgM Ab Equivocal (Negative) A 11/29/22 05:48 C. pneumoniae DNA (PCR) Not Detected (NotDetected) 11/28/22 Unknown Coronavirus OC43 (PCR) Not Detected (NotDetected) 11/28/22 Unknown Coronavirus HKU1 (PCR) Not Detected (NotDetected) 11/28/22 Unknown Coronavirus 229E (PCR) Not Detected (NotDetected) 11/28/22 Unknown SARS-CoV-2 (PCR) Not Detected (NotDetected) 11/28/22 Unknown Coronavirus NL63 (PCR) Not Detected (NotDetected) 11/28/22 Unknown Human Metapneumovir PCR Not Detected (NotDetected) 11/28/22 Unknown Influenza Type A (PCR) Not Detected (NotDetected) 11/28/22 Unknown Influenza Type B (PCR) Not Detected (NotDetected) 11/28/22 Unknown M. pneumoniae (PCR) Not Detected (NotDetected) 11/28/22 Unknown Parainfluenza 1 (PCR) Not Detected (NotDetected) 11/28/22 Unknown Parainfluenza 2 (PCR) Not Detected (NotDetected) 11/28/22 Unknown Parainfluenza 3 (PCR) Not Detected (NotDetected) 11/28/22 Unknown Parainfluenza 4 (PCR) Not Detected (NotDetected) 11/28/22 Unknown RSV (PCR) Not Detected (NotDetected) 11/28/22 Unknown Entero/Rhino (PCR) DETECTED (NotDetected) A* 11/28/22 Unknown Impressions Chest X-Ray 11/28/22 16:09 XR chest 1V not portable CLINICAL HISTORY: Tachycardia. COMPARISON STUDY: Chest CT October 05, 2021. Chest radiograph November 15, 2021. FINDINGS: There are median sternotomy wires and a prosthetic aortic valve. Cardiac size is normal. No pneumothorax or pleural effusion is present. There is emphysema. No consolidation is identified to suggest pneumonia. An irregular density projecting over the right hilum is unchanged from earlier chest CTs. This favors scarring. There has been no significant change in appearance of the chest. IMPRESSION: No acute cardiopulmonary findings. Emphysema. No change in appearance of the chest. ACT 112: Negative or not required by law. Electronically signed by: Reggie Gomez M.D. 11/28/2022 5:21 PM Abdomen/Pelvis CT 11/28/22 17:34 Exam(s): CT ABDOMEN + PELVIS With Contrast IV Amt: 92 ml optiray 320 EXAM: CT Abdomen and Pelvis With Intravenous Contrast CLINICAL HISTORY: Reason for exam: Epigastric abdominal pain, nausea. TECHNIQUE: Axial computed tomography images of the abdomen and pelvis with intravenous contrast. CTDI is 12.7 mGy and DLP is 515.74 mGy-cm. Automated exposure control was utilized for the study. A dose lowering technique was utilized adhering to the principles of ALARA. CONTRAST: Patient received 92 ml optiray 320 of IV contrast COMPARISON: No relevant prior studies available. FINDINGS: Lung bases: Unremarkable. No mass. No consolidation. ABDOMEN: Liver: Unremarkable. No focal hepatic lesion. Gallbladder and bile ducts: Cholecystectomy. No ductal dilation. Pancreas: Unremarkable. No mass. No ductal dilation. Spleen: Unremarkable. No splenomegaly. Adrenals: Unremarkable. No mass. Kidneys and ureters: Unremarkable. No hydronephrosis or delayed nephrogram. Stomach and bowel: Diverticulosis, without acute diverticulitis. No small bowel obstruction. No free air. PELVIS: Appendix: Normal appendix. Bladder: Unremarkable. Normal urinary bladder. Reproductive: Unremarkable as visualized. Normal CT appearance of the uterus. ABDOMEN and PELVIS: Intraperitoneal space: See above. Bones/joints: Degenerative changes of the spine. No acute fracture. No dislocation. Soft tissues: Unremarkable. Vasculature: Atherosclerotic changes of the aorta. No abdominal aortic aneurysm. Lymph nodes: Unremarkable. No enlarged lymph nodes. IMPRESSION: 1. No hydronephrosis or delayed nephrogram. 2. Normal appendix. 3. Cholecystectomy. 4. Diverticulosis, without acute diverticulitis. No small bowel obstruction. No free air. Electronically signed by: Renny Mary MD 11/28/22 20:23 PM
[2022-11-29 17:25] LABS: BUN Creatinine Ratio 7.3 (10-20); Calcium 8.7 mg/dl (8.6-10.3); Est GFR (African American) 118.2 ml/min; Est GFR (Non-African American) 101.9 ml/min; Potassium 3.9 mmol/L (3.5-5.1)
[2022-11-29 17:36] LABS: Troponin I High Sensitivity 870.4 pg/ml (0-14)
[2022-11-29] MEDS: RIVAROXABAN 20 MG TAB PO SCH (19:30)
[2022-11-29] MEDS: UREA (UREA-NA) 15 GM PACK PO SCH ×2 (19:30→19:35)
[2022-11-29] MEDS: OLANZAPINE 2.5 MG TAB PO SCH (19:33)
[2022-11-29] MEDS ORDERED: METOPROLOL SUCCINATE 50 MG PO SCH (21:00)
[2022-11-29 23:19] LABS: BUN Creatinine Ratio 41.7 (10-20); Creatinine Clr Calc Pharmacy 78.9 ml/min; Est GFR (African American) 114.8 ml/min; Est GFR (Non-African American) 99.1 ml/min; Potassium 3.8 mmol/L (3.5-5.1)
[2022-11-30] MEDS: DOXYCYCLINE HYCLATE 100 MG in DEXTROSE 5% 100 ML IV SCH ×2 (00:55→14:42)
[2022-11-30] MEDS: ALBUT/IPRATROP 3MG/0.5MG NEB 3 ML VIAL INH PRN ×3 (05:02→20:43)
[2022-11-30] MEDS: ACETAMINOPHEN 325 MG TAB PO PRN ×2 (08:02→20:18)
[2022-11-30] MEDS: FLUTICASONE/VILANTEROL 200/25MCG 14 PUFFS/INHALER INH SCH (08:03)
[2022-11-30] MEDS: FERROUS SULFATE 325 MG TAB PO SCH ×3 (08:03→18:12)
[2022-11-30] MEDS: FLUTICASONE PROPIONATE NA SPR 16 GM BTL SCH (08:03)
[2022-11-30] MEDS: ASCORBIC ACID 500 MG TAB PO SCH ×3 (08:04→18:12)
[2022-11-30] MEDS: UMECLIDINIUM BROMIDE 62.5MCG/BLISTER 7 PUFFS/INHALER INH SCH (08:04)
[2022-11-30] MEDS: METOPROLOL SUCC 50MG EXT REL TAB PO SCH ×2 (08:05→20:11)
[2022-11-30] MEDS: CETIRIZINE HCL 10 MG TABLET PO SCH (08:05)
[2022-11-30] MEDS: PARoxetine HCL 20 MG TAB PO SCH (08:05)
[2022-11-30] MEDS: CLOPIDOGREL BISULFATE 75 MG TAB PO SCH (08:05)
[2022-11-30] MEDS: FAMOTIDINE 20 MG TAB PO SCH (08:06)
[2022-11-30] MEDS: MAGNESIUM OXIDE 400 MG TAB PO SCH (08:06)
[2022-11-30] MEDS: PANTOprazole 40 MG TAB PO SCH (08:06)
[2022-11-30] MEDS: UREA (UREA-NA) 15 GM PACK PO SCH ×3 (08:06→20:53)
[2022-11-30] MEDS ORDERED: ASPIRIN 81 MG ECTAB PO SCH (09:00)
[2022-11-30] MEDS ORDERED: FUROSEMIDE 40 MG TAB PO SCH (09:00)
[2022-11-30] MEDS ORDERED: VERAPAMIL HCL 180 MG TABCR PO SCH (09:00)
[2022-11-30 09:17] LABS: Basophils # (auto) 0.06 K/uL (0-0.2); Basophils % (auto) 0.7 %; Eosinophils # (auto) 0.41 K/uL (0-0.50); Eosinophils % (auto) 4.9 %; Hematocrit (blood only) 34.6 % (37.0-47.0); Hemoglobin 10.9 g/dl (12.0-16.0); Immature Granulocytes # (auto) 0.04 K/uL (0.01-0.20); Immature Granulocytes % (auto) 0.5 %; Lymphocytes # (auto) 0.75 K/uL (1.2-3.4); Mean Corpuscular Hemoglobin 20.4 pg (25.0-34.0); Mean Corpuscular Hgb Conc 31.5 g/dL (32.0-36.0); Mean Corpuscular Volume 64.8 fL (80.0-100.0); Monocytes % (auto) 9.7 %; Neutrophils # (auto) 6.23 K/uL (1.40-6.50); Neutrophils % (auto) 75.2 %; RDW Standard Deviation 32.7 fL (36.4-46.3); Red Blood Count 5.34 M/uL (4.20-5.40); White Blood Count 8.29 K/ul (4.8-10.8)
[2022-11-30 09:29] LABS: Mean Platelet Volume 9.3 fL (9.4-12.4); Platelet Count 277 K/uL (130-400)
[2022-11-30 09:55] LABS: Microcytosis Present; Ovalocytes 1+; Polychromasia 1+; Tear Drop Cells 1+
--- NOTE | 2022-11-30 10:06 | Gastroenterology Progress Note ---
Date of Service November 30, 2022 Assessment & Plan (1) Nausea: Plan: Likely secondary to gastritis, A-fib, demand ischemia cardiac event. Plan 1. Antiemetics. 2. EGD not yet received from [facility]'s tatum Felder community development coordinator who will work on obtaining. Will review when available. 3. Continue oral PPI, H2 mariposa. 4. Will review results of stool testing for H Pylori when available. . 5. No clear indication to repeat endoscopy at this time. Continue regular consistency diet. 6. OP GI eval if nausea persists. 7. GI will sign off. Please recall if questions. Admission and Anticipated Discharge Date Admission Date: November 28, 2022 Supervising Physician Co-Signing Physician Notes Patient was seen and examined on 11/30 with FRANCIA Cardona whose note reflects our findings and plan. Subjective Reports nausea is a bit better. Ate some of her regular consistency breakfast. No vomiting. Able to sit up in bed, talking on phone. Review of Systems Constitutional: + sweats, + fatigue, + weakness and + weight loss Eyes: no problem reported Ear, Nose, Mouth, Throat: no sore throat, no dysphagia, no pain with swallowing and no problem reported Respiratory: chronic SOB, recently sl worsened Cardiovascular: no chest pain, no lightheadedness, no syncope and no edema Gastrointestinal: As per HPI, otherwise (-) Musculoskeletal: no problem reported Integumentary: no jaundice, no rashes Neurologic: no numbness, no tremor(s), no headache(s) and no confusion Psychiatric: no problem reported Hematologic / Lymphatic: bruises very easily on Xeralto/Plavix but no nose/gum bleeds and no gross GI bleeding Physical Exam Constitutional: + ill appearing (chronically), + thin and cooperative; no acute distress Eyes: PERRL, conjunctivae normal, anicteric sclerae ENMT: external ear and nose normal, oropharynx normal Neck: trachea midline, no thyromegaly Respiratory: normal respiratory effort, lungs clear to auscultation Cardiovascular: Rate/Rhythm: regular rate and regular rhythm Heart Sounds: + murmur (2/5 systolic murmur, sl irregular, normal rate) Gastrointestinal (Abdomen): normal bowel sounds, soft, nontender, no hepatosplenomegaly Musculoskeletal: no cyanosis or clubbing, extremities motor strength 5/5 Skin: no rashes, warm and dry Neurologic: PERRL, EOMI, accommodation nl, no face palsy, no dysarthria Psychiatric: A+Ox3, euthymic affect Lymphatic: no cervical or axillary lymphadenopathy Results & Data Vital Signs (Past 12 Hours) Vital Signs Temp Pulse Pulse Resp BP BP Pulse Ox 11/30/22 07:13 36.6 C 68 18 125/75 94 11/30/22 05:03 63 17 99 11/30/22 03:29 36.5 C 66 18 143/92 H 99 11/30/22 03:00 11/29/22 22:00 60 11/29/22 23:29 36.5 C 57 L 16 101/68 97 O2 Del Method O2 Del Method O2 Flow Rate O2 Flow Rate 11/30/22 07:13 Nasal Cannula 2 11/30/22 05:03 Nasal Cannula 2 11/30/22 03:29 Nasal Cannula 2 11/30/22 03:00 Nasal Cannula 2 11/29/22 22:00 11/29/22 23:29 Room Air Laboratory Results WBC 8.2, Hb 10.9, HCT 34.6, PLT 277 Diagnostic Findings CTAP w IV 11/28/22: . 1. No hydronephrosis or delayed nephrogram. 2. Normal appendix. 3. Cholecystectomy. 4. Diverticulosis, without acute diverticulitis. No small bowel obstruction. No free air.
--- NOTE | 2022-11-30 11:31 | Nephrology Progress Note ---
Date of Service November 30, 2022 Assessment & Plan Admission and Anticipated Discharge Date Admission Date: November 28, 2022 Subjective Assessment & Plan (1) Hyponatremia: she has had mild hyponatremia for the last few years with serum sodium ranging 130-134 and was intermittently getting salt tablet and was on chronic Lasix. as per the patient's salt tablets stopped about a month ago because of high blood pressure. She has never seen a hot molder for this problem. I did not see urine osmolarity or urine electrolytes done as an outpatient either. it is not possible to categorize hyponatremia without urine osmolarity serum osmolarity urine sodium and urine creatinine and will do now. urine osm 173 urine na 13. Given her history Etiology more likely---Low Solute diet, Excessive Fluid intake relatively and Some pre existing underlying Urinary dilution issue. Even though patient has been losing weight and not eating much her blood pressure is high which means she can not be really super volume depleted. urea 15 g twice daily at least till tomorrow then Stop FFR 1200 ml per day Daily labs now S---Feels better. Less nausea. making urine. Na is better. Does not like the taste of Urea-NA Physical Exam Physical Exam: awake alert and oriented x3. No respiratory distress. Very reliable historian and was able to give me a full detailed account of her complicated medical history Constitutional: awake and alert no distress not febrile Neck: supple no JVD Respiratory: bilateral decreased breath sound slightly prolonged expiration Cardiovascular: S1 and S-2 regular. Systolic murmur heard. No edema Gastrointestinal (Abdomen): soft and nontender Skin: no rash noted Results & Data Vital Signs (Past 12 Hours) Vital Signs Temp Pulse Pulse Resp BP Pulse Ox O2 Del Method 11/30/22 08:00 Nasal Cannula 11/30/22 08:00 64 11/30/22 10:59 36.7 C 66 20 168/100 H 94 Nasal Cannula 11/30/22 07:13 36.6 C 68 18 125/75 94 Nasal Cannula 11/30/22 05:03 63 17 99 Nasal Cannula 11/30/22 03:29 36.5 C 66 18 143/92 H 99 Nasal Cannula 11/30/22 03:00 O2 Del Method O2 Flow Rate O2 Flow Rate 11/30/22 08:00 2 11/30/22 08:00 11/30/22 10:59 2 11/30/22 07:13 2 11/30/22 05:03 2 11/30/22 03:29 2 11/30/22 03:00 Nasal Cannula 2
--- NOTE | 2022-11-30 13:44 | Cardiology Progress Note ---
Date of Service November 30, 2022 Assessment & Plan (1) Elevated troponin I level: (2) Hypertensive heart disease: (3) S/P AVR (aortic valve replacement): (4) Paroxysmal atrial fibrillation: (5) Nausea: (6) Fatigue: Plan 62-year-old female presents for evaluation of nausea, abdominal discomfort, and weight loss over the past 4 weeks. Recent coronary intervention including PCI to OM2 and RPL branch vessel. Elevated troponin noted during current admission appears chronically elevated and not a result of plaque rupture event but rather demand ischemia/systemic illness. Patient diagnosed with viral URI and possible Lyme disease. Verapamil remain on hold due to ongoing GI issues. Continue metoprolol succinate 50 mg twice daily. Continue Plavix uninterrupted due to recent drug- eluting stent implantation. Continue Xarelto due to history of paroxysmal atrial fibrillation. Admission and Anticipated Discharge Date Admission Date: November 28, 2022 Subjective Patient seen and examined at the bedside. Denies chest pain or shortness of breath. Nausea mildly improved. Denies vomiting. No orthopnea, PND, or lower extremity edema. Telemetry reveals sinus rhythm in the 60-70s. No dysrhythmias recorded. Review of Systems Review of Systems: All systems reviewed & are unremarkable except as noted in Subjective Physical Exam Constitutional: + ill appearing Respiratory: no respiratory distress, no labored breathing and no retractions Auscultation: + rhonchi and + wheezes Cardiovascular: Rate/Rhythm: regular rate and regular rhythm Heart Sounds: normal S1, normal S2 and + murmur (2/6 systolic ejection murmur heard best at the right second costal space) Vessels: no JVD and no carotid bruit Extremities: no edema Gastrointestinal (Abdomen): Inspection/Auscultation: abdomen not distended Percussion/Palpation: abdomen soft; no guarding and abdomen not rigid Neurologic: CN's II-XI intact bilaterally and moves all extremities; no focal motor deficits Results & Data Vital Signs (Past 12 Hours) Vital Signs Temp Pulse Pulse Resp BP Pulse Ox O2 Del Method 11/30/22 12:33 65 16 98 Nasal Cannula 11/30/22 11:32 96 11/30/22 08:00 Nasal Cannula 11/30/22 08:00 64 11/30/22 10:59 36.7 C 66 20 168/100 H 94 Nasal Cannula 11/30/22 07:13 36.6 C 68 18 125/75 94 Nasal Cannula 11/30/22 05:03 63 17 99 Nasal Cannula 11/30/22 03:29 36.5 C 66 18 143/92 H 99 Nasal Cannula 11/30/22 03:00 O2 Del Method O2 Flow Rate O2 Flow Rate 11/30/22 12:33 2 11/30/22 11:32 11/30/22 08:00 2 11/30/22 08:00 11/30/22 10:59 2 11/30/22 07:13 2 11/30/22 05:03 2 11/30/22 03:29 2 11/30/22 03:00 Nasal Cannula 2 Laboratory Results Cardiac Enzymes 11/29/22 Range/Units 16:32 Troponin I High Sens 870.4 H* (0-14) pg/ml CBC 11/30/22 Range/Units 08:17 WBC 8.29 (4.8-10.8) K/ul RBC 5.34 (4.20-5.40) M/uL Hgb 10.9 L (12.0-16.0) g/dl Hct 34.6 L (37.0-47.0) % Plt Count 277 (130-400) K/uL Neut # (Auto) 6.23 (1.40-6.50) K/uL Lymph # (Auto) 0.75 L (1.2-3.4) K/uL Placer # (Auto) 0.80 H (0.11-0.59) K/uL Eos # (Auto) 0.41 (0-0.50) K/uL Baso # (Auto) 0.06 (0-0.2) K/uL Comprehensive Metabolic Panel 11/29/22 11/29/22 Range/Units 16:32 22:46 Sodium 128 L 131 L (136-145) mmol/L Potassium 3.9 3.8 (3.5-5.1) mmol/L Chloride 88 L 91 L (98-107) mmol/L Carbon Dioxide 34 H 34 H (21-32) mmol/L BUN 4 L 25 H D (6-23) mg/dl Creatinine 0.55 L 0.60 (0.6-1.2) mg/dl Glucose 83 71 (70-99(Fasting)) mg/dl Calcium 8.7 9.0 (8.6-10.3) mg/dl Intake and Output 11/29/22 11/30/22 11/30/22 22:59 06:59 14:59 Intake Total 110 / 1267.5 310 / 1267.5 Balance 110 / 1267.5 310 / 1267.5 Intake: IV 110 / 1067.5 110 / 1067.5 Doxycycline Hyclate 100 mg In 110 / 220 110 / 220 Dextrose 5% 100 ml @ 50 mls/hr IV Q12H [facility] Rx#:[id number] Oral 200 / 200 Other: # Unmeasured Voids 1 1 Weight 60.2 kg Weight Measurement Method Built in [facility]
--- NOTE | 2022-11-30 14:00 | Hospitalist Progress Note ---
Date of Service November 30, 2022 Assessment & Plan (1) NSTEMI (non-ST elevated myocardial infarction): Plan: 62-year-old female history of hyperlipidemia COPD on home oxygen 2 L, chronic seasonal allergic rhinitis, history of SVT, history of enlarged thoracic aorta, history of Raynaud's phenomenon, history of mitral valve prolapse, history of hypertension, history of GERD, generalized osteoarthritis, thalassemia minor, psoriasis, depression, s/p aortic valve replacement bioprosthetic valve, former smoker, recently last week had cardiac cath and s/p 3 stents at [facility] in [place] as per patient . Patient states having epigastric pain going on for last 1 month also with nausea and poor oral intake. Found to have elevated troponin and hyponatremia. Elevated high-sensitivity troponin likely secondary to demand ischemia. History of recent cardiac [facility]: Coronary angiography demonstrating two-vessel disease including obtuse marginal branch vessel #2 of the circumflex and posterior lateral branch vessel of the RCA. A drug-eluting stent was implanted to the second obtuse marginal as well as the posterior lateral branch vessel of the right coronary artery. The peak to peak gradient across the aortic valve was 10-15 mmHg. Moderate (40-50%)mid to distal LAD disease also noted Initial troponin 1000; down trended. EKG on admission personally reviewed; normal sinus rhythm with ST changes in inferior leads. No chest pain. Echocardiogram results reviewed; EF of 65 to 70%; moderate concentric left ventricular hypertrophy. Bioprosthetic aortic valve. Ascending aorta mildly e nlarged; 4.4 to 45 cm. Continue on Plavix. Metoprolol succinate 50 mg twice a day. Verapamil on hold Continue monitor on telemetry Epigastric pain Persistent nausea Patient reports EGD in [facility] recently. CT abdomen/pelvis personally reviewed; no acute intra-abdominal finding GI on board; stool study for H. pylori ordered. Protonix changed to once daily. Started on Zyprexa 2.5 mg at bedtime for nausea. Reports symptomatic improvement. Zofran as needed. Advance diet as tolerated. Hyponatremia History of mild hyponatremia for last few years. Serum sodium ranging from 1 30-1 34. Sodium 126 on admission, was on salt tablets on admission. Urine osmolarity of 173 and urine random sodium of 13 Hyponatremia likely due to tea and toast diet ( low solute diet) Sodium improved on oral urea and fluid restriction. Monitor BMP. Fluid restriction of 1200 cc. Paroxysmal atrial fibrillation On metoprolol 50 mg twice daily On Xarelto Holding off on verapamil. Equivocal lyme IgM Started on empiric doxycycline l follow-up on confirmation test. COPD on home oxygen Continue home inhalers and nebs as needed Enterorhinovirus on bio fire Supportive care Isolation precautions DVT prophylaxis on Xarelto Time spent evaluating patient, direct bedside care, chart review, placing orders, interpretation of diagnostic studies, discussion with consultants, patient, and family members, as well as other required patient management activities is 60 minutes. Please note the above document was generated using voice recognition software. It may contain grammatical, syntax or spelling errors. Any formal questions or concerns about the content, text or information contained within the body of this dictation should be directly addressed to the provider for clarification Admission and Anticipated Discharge Date Admission Date: November 28, 2022 Subjective Patient seen and examined at bedside. She is comfortable; not in distress. Reports that her nausea is much better compared to admission. Review of Systems Review of Systems: All systems reviewed & are unremarkable except as noted in Subjective Physical Exam Physical Exam: Constitutional: Awake, alert orient x3; comfortable. Not in distress. Respiratory: Bilateral basal breath sound. Cardiovascular: RRR, no murmur, no edema Vessels: no JVD or carotid bruit Chest: normal inspection of chest Abdomen: normal bowel sounds, soft, nontender, no hepatosplenomegaly Musculoskeletal: no cyanosis or clubbing, extremities motor strength 5/5 Skin: no rashes, warm and dry normal turgor Neurologic: PERRL, EOMI, accommodation nl, no face palsy, no dysarthria CN's II- XI intact bilaterally and moves all extremities Psychiatric: A+Ox3, euthymic affect Results & Data Results & Data Vital Signs (Past 12 Hours) Vital Signs Temp Pulse Pulse Resp BP Pulse Ox O2 Del Method 11/30/22 12:33 65 16 98 Nasal Cannula 11/30/22 11:32 96 11/30/22 08:00 Nasal Cannula 11/30/22 08:00 64 11/30/22 10:59 36.7 C 66 20 168/100 H 94 Nasal Cannula 11/30/22 07:13 36.6 C 68 18 125/75 94 Nasal Cannula 11/30/22 05:03 63 17 99 Nasal Cannula 11/30/22 03:29 36.5 C 66 18 143/92 H 99 Nasal Cannula 11/30/22 03:00 O2 Del Method O2 Flow Rate O2 Flow Rate 11/30/22 12:33 2 11/30/22 11:32 11/30/22 08:00 2 11/30/22 08:00 11/30/22 10:59 2 11/30/22 07:13 2 11/30/22 05:03 2 11/30/22 03:29 2 11/30/22 03:00 Nasal Cannula 2 Laboratory Results Laboratory Results WBC 8.29 K/ul (4.8-10.8) 11/30/22 08:17 RBC 5.34 M/uL (4.20-5.40) 11/30/22 08:17 Hgb 10.9 g/dl (12.0-16.0) L 11/30/22 08:17 Hct 34.6 % (37.0-47.0) L 11/30/22 08:17 MCV 64.8 fL (80.0-100.0) L 11/30/22 08:17 MCH 20.4 pg (25.0-34.0) L 11/30/22 08:17 MCHC 31.5 g/dL (32.0-36.0) L 11/30/22 08:17 RDW Std Deviation 32.7 fL (36.4-46.3) L 11/30/22 08:17 RDW Coeff of Emil 15.0 % (11.5-14.5) H 11/30/22 08:17 Plt Count 277 K/uL (130-400) 11/30/22 08:17 MPV 9.3 fL (9.4-12.4) L 11/30/22 08:17 Immature Gran % (Auto) 0.5 % 11/30/22 08:17 Neut % (Auto) 75.2 % 11/30/22 08:17 Lymph % (Auto) 9.0 % 11/30/22 08:17 [place] % (Auto) 9.7 % 11/30/22 08:17 Eos % (Auto) 4.9 % 11/30/22 08:17 Baso % (Auto) 0.7 % 11/30/22 08:17 Neut # (Auto) 6.23 K/uL (1.40-6.50) 11/30/22 08:17 Lymph # (Auto) 0.75 K/uL (1.2-3.4) L 11/30/22 08:17 [place] # (Auto) 0.80 K/uL (0.11-0.59) H 11/30/22 08:17 Eos # (Auto) 0.41 K/uL (0-0.50) 11/30/22 08:17 Baso # (Auto) 0.06 K/uL (0-0.2) 11/30/22 08:17 Immature Gran # (Auto) 0.04 K/uL (0.01-0.20) 11/30/22 08:17 Platelet Estimate Normal (Normal) 11/28/22 16:08 Polychromasia 1+ 11/30/22 08:17 Microcytosis Present 11/30/22 08:17 Tear Drop Cells 1+ 11/30/22 08:17 Ovalocytes 1+ 11/30/22 08:17 Sodium 131 mmol/L (136-145) L 11/29/22 22:46 Potassium 3.8 mmol/L (3.5-5.1) 11/29/22 22:46 Chloride 91 mmol/L (98-107) L 11/29/22 22:46 Carbon Dioxide 34 mmol/L (21-32) H 11/29/22 22:46 Anion Gap 6 (3-11) 11/29/22 22:46 BUN 25 mg/dl (6-23) H D 11/29/22 22:46 Creatinine 0.60 mg/dl (0.6-1.2) 11/29/22 22:46 Est Cr Clr Drug Dosing 78.9 ml/min 11/29/22 22:46 Est GFR ( Amer) 114.8 ml/min 11/29/22 22:46 Est GFR (Non-Af Amer) 99.1 ml/min 11/29/22 22:46 BUN/Creatinine Ratio 41.7 (10-20) H 11/29/22 22:46 Glucose 71 mg/dl (70-99(Fasting)) 11/29/22 22:46 Osmolality 262 mOsm/kg (280-300) L 11/29/22 05:48 Calcium 9.0 mg/dl (8.6-10.3) 11/29/22 22:46 Phosphorus 3.7 mg/dl (2.5-4.9) 11/29/22 12:21 Magnesium 2.0 mg/dl (1.7-2.4) 11/29/22 05:48 Total Bilirubin 0.8 mg/dl (0.2-1.0) 11/28/22 16:08 AST 19 U/L (13-39) 11/28/22 16:08 ALT 10 U/L (7-52) 11/28/22 16:08 Alkaline Phosphatase 56 U/L (34-104) 11/28/22 16:08 Troponin I High Sens 870.4 pg/ml (0-14) H* 11/29/22 16:32 Total Protein 7.0 gm/dl (6.0-8.3) 11/28/22 16:08 Albumin 4.1 gm/dl (3.4-5.0) 11/28/22 16:08 Globulin 2.9 gm/dl (2.5-4.0) 11/28/22 16:08 Albumin/Globulin Ratio 1.4 (0.9-2) 11/28/22 16:08 Lipase 13 U/L (11-82) 11/28/22 16:08 Urine Color Yellow 11/28/22 20:50 Urine Appearance Clear (Clear) 11/28/22 20:50 Urine pH 8.0 (4.5-7.5) H 11/28/22 20:50 Ur Specific Butler > 1.045 (1.000-1.030) H 11/28/22 20:50 Urine Protein Negative (Negative) 11/28/22 20:50 Urine Glucose (UA) Negative (Negative) 11/28/22 20:50 Urine Ketones Negative (Negative) 11/28/22 20:50 Urine Blood Negative (Negative) 11/28/22 20:50 Urine Nitrite Negative (Negative) 11/28/22 20:50 Urine Bilirubin Negative (Negative) 11/28/22 20:50 Urine Urobilinogen Negative (Negative) 11/28/22 20:50 Ur Leukocyte Esterase Negative (Negative) 11/28/22 20:50 Urine Osmolality 173 mOsm/kg (500-800) L 11/29/22 11:08 Ur Random Sodium 13 mmol/L 11/29/22 11:08 Adenovirus (PCR) Not Detected (NotDetected) 11/28/22 Unknown B. pertussis DNA (PCR) Not Detected (NotDetected) 11/28/22 Unknown B.parapertussis DNA PCR Not Detected (NotDetected) 11/28/22 Unknown Lyme Disease IgG Ab Negative (Negative) 11/29/22 05:48 Lyme Disease IgM Ab Equivocal (Negative) A 11/29/22 05:48 C. pneumoniae DNA (PCR) Not Detected (NotDetected) 11/28/22 Unknown Coronavirus OC43 (PCR) Not Detected (NotDetected) 11/28/22 Unknown Coronavirus HKU1 (PCR) Not Detected (NotDetected) 11/28/22 Unknown Coronavirus 229E (PCR) Not Detected (NotDetected) 11/28/22 Unknown SARS-CoV-2 (PCR) Not Detected (NotDetected) 11/28/22 Unknown Coronavirus NL63 (PCR) Not Detected (NotDetected) 11/28/22 Unknown Human Metapneumovir PCR Not Detected (NotDetected) 11/28/22 Unknown Influenza Type A (PCR) Not Detected (NotDetected) 11/28/22 Unknown Influenza Type B (PCR) Not Detected (NotDetected) 11/28/22 Unknown M. pneumoniae (PCR) Not Detected (NotDetected) 11/28/22 Unknown Parainfluenza 1 (PCR) Not Detected (NotDetected) 11/28/22 Unknown Parainfluenza 2 (PCR) Not Detected (NotDetected) 11/28/22 Unknown Parainfluenza 3 (PCR) Not Detected (NotDetected) 11/28/22 Unknown Parainfluenza 4 (PCR) Not Detected (NotDetected) 11/28/22 Unknown RSV (PCR) Not Detected (NotDetected) 11/28/22 Unknown Entero/Rhino (PCR) DETECTED (NotDetected) A* 11/28/22 Unknown Impressions Chest X-Ray 11/28/22 16:09 XR chest 1V not portable CLINICAL HISTORY: Tachycardia. COMPARISON STUDY: Chest CT October 05, 2021. Chest radiograph November 15, 2021. FINDINGS: There are median sternotomy wires and a prosthetic aortic valve. Cardiac size is normal. No pneumothorax or pleural effusion is present. There is emphysema. No consolidation is identified to suggest pneumonia. An irregular density projecting over the right hilum is unchanged from earlier chest CTs. This favors scarring. There has been no significant change in appearance of the chest. IMPRESSION: No acute cardiopulmonary findings. Emphysema. No change in appearance of the chest. ACT 112: Negative or not required by law. Electronically signed by: Reggie Gomez M.D. 11/28/2022 5:21 PM Abdomen/Pelvis CT 11/28/22 17:34 Exam(s): CT ABDOMEN + PELVIS With Contrast IV Amt: 92 ml optiray 320 EXAM: CT Abdomen and Pelvis With Intravenous Contrast CLINICAL HISTORY: Reason for exam: Epigastric abdominal pain, nausea. TECHNIQUE: Axial computed tomography images of the abdomen and pelvis with intravenous contrast. CTDI is 12.7 mGy and DLP is 515.74 mGy-cm. Automated exposure control was utilized for the study. A dose lowering technique was utilized adhering to the principles of ALARA. CONTRAST: Patient received 92 ml optiray 320 of IV contrast COMPARISON: No relevant prior studies available. FINDINGS: Lung bases: Unremarkable. No mass. No consolidation. ABDOMEN: Liver: Unremarkable. No focal hepatic lesion. Gallbladder and bile ducts: Cholecystectomy. No ductal dilation. Pancreas: Unremarkable. No mass. No ductal dilation. Spleen: Unremarkable. No splenomegaly. Adrenals: Unremarkable. No mass. Kidneys and ureters: Unremarkable. No hydronephrosis or delayed nephrogram. Stomach and bowel: Diverticulosis, without acute diverticulitis. No small bowel obstruction. No free air. PELVIS: Appendix: Normal appendix. Bladder: Unremarkable. Normal urinary bladder. Reproductive: Unremarkable as visualized. Normal CT appearance of the uterus. ABDOMEN and PELVIS: Intraperitoneal space: See above. Bones/joints: Degenerative changes of the spine. No acute fracture. No dislocation. Soft tissues: Unremarkable. Vasculature: Atherosclerotic changes of the aorta. No abdominal aortic aneurysm. Lymph nodes: Unremarkable. No enlarged lymph nodes. IMPRESSION: 1. No hydronephrosis or delayed nephrogram. 2. Normal appendix. 3. Cholecystectomy. 4. Diverticulosis, without acute diverticulitis. No small bowel obstruction. No free air. Electronically signed by: Renny Mary MD 11/28/22 20:23 PM
[2022-11-30] MEDS: ONDANSETRON INJ 2 MG/ML 2 ML VIAL IV PRN (14:43)
[2022-11-30] MEDS: RIVAROXABAN 20 MG TAB PO SCH (18:12)
--- NOTE | 2022-11-30 19:55 | Electrocardiogram Report ---
Test Reason : Blood Pressure : / mmHG Vent. Rate : 065 BPM Atrial Rate : 065 BPM P-R Int : 132 ms QRS Dur : 080 ms QT Int : 434 ms P-R-T Axes : 066 066 226 degrees QTc Int : 451 ms Normal sinus rhythm Minimal voltage criteria for LVH, may be normal variant Septal infarct , age undetermined Abnormal ECG No previous ECGs available Confirmed by Jason Sparks ([id number]) on 11/30/2022 7:54:45 PM Referred By: REFERRED SELF Confirmed By:Jason Sparks
[2022-11-30] MEDS: OLANZAPINE 2.5 MG TAB PO SCH (20:11)
[2022-11-30] MEDS: MELATONIN 3 MG TAB PO PRN (20:17)
--- NOTE | 2022-11-30 22:12 | Electrocardiogram Report ---
Test Reason : Blood Pressure : / mmHG Vent. Rate : 061 BPM Atrial Rate : 061 BPM P-R Int : 124 ms QRS Dur : 082 ms QT Int : 478 ms P-R-T Axes : 056 065 230 degrees QTc Int : 481 ms Normal sinus rhythm Anteroseptal infarct (cited on or before 28-NOV-2022) Prolonged QT Abnormal ECG When compared with ECG of 28-NOV-2022 16:52, T wave inversion less evident in Lateral leads Confirmed by Jason Sparks ([id number]) on 11/30/2022 10:12:25 PM Referred By: REFERRED SELF Confirmed By:Jason Sparks
[2022-12-01] MEDS: DOXYCYCLINE HYCLATE 100 MG in DEXTROSE 5% 100 ML IV SCH (01:26)
[2022-12-01 01:43] LABS: 18KDIGG Band NON-REACTIVE; 23KDIGG Band NON-REACTIVE; 23KDIGM Band NON-REACTIVE; 28KDIGG Band NON-REACTIVE; 30KDIGG Band NON-REACTIVE; 39KDIGG Band REACTIVE; 39KDIGM Band NON-REACTIVE; 41KDIGG Band NON-REACTIVE; 41KDIGM Band NON-REACTIVE; 45KDIGG Band NON-REACTIVE; 58KDIGG Band NON-REACTIVE; 66KDIGG Band NON-REACTIVE; 93KDIGG Band NON-REACTIVE; Lyme Antibodies, WB IgG NEGATIVE (NEGATIVE); Lyme Antibodies, WB IgM NEGATIVE (NEGATIVE)
--- NOTE | 2022-12-01 07:07 | Electrocardiogram Report ---
Test Reason : Blood Pressure : / mmHG Vent. Rate : 069 BPM Atrial Rate : 069 BPM P-R Int : 138 ms QRS Dur : 078 ms QT Int : 392 ms P-R-T Axes : 068 068 198 degrees QTc Int : 420 ms Normal sinus rhythm Abnormal ECG When compared with ECG of 29-NOV-2022 09:39, T wave changes are more significant Confirmed by Gorge Treviño ([id number]) on 12/01/2022 7:07:21 AM Referred By: REFERRED SELF Confirmed By:Nate Treviño
[2022-12-01 07:59] LABS: Basophils # (auto) 0.05 K/uL (0-0.2); Basophils % (auto) 0.5 %; Eosinophils # (auto) 0.48 K/uL (0-0.50); Eosinophils % (auto) 4.6 %; Immature Granulocytes # (auto) 0.05 K/uL (0.01-0.20); Immature Granulocytes % (auto) 0.5 %; Lymphocytes # (auto) 0.73 K/uL (1.2-3.4); Mean Corpuscular Hemoglobin 20.4 pg (25.0-34.0); Mean Corpuscular Hgb Conc 31.3 g/dL (32.0-36.0); Mean Corpuscular Volume 65.4 fL (80.0-100.0); Monocytes # (auto) 1.09 K/uL (0.11-0.59); Monocytes % (auto) 10.5 %; Neutrophils # (auto) 8.02 K/uL (1.40-6.50); Neutrophils % (auto) 76.9 %; RDW Coefficient of Variation 14.8 % (11.5-14.5); RDW Standard Deviation 33.7 fL (36.4-46.3); Red Blood Count 4.89 M/uL (4.20-5.40); White Blood Count 10.42 K/ul (4.8-10.8)
[2022-12-01] MEDS: ALBUTEROL 0.083% NEBU SOLN 3 ML VIAL INH PRN (08:15)
[2022-12-01 08:18] LABS: BUN Creatinine Ratio 20.3 (10-20); Calcium 8.9 mg/dl (8.6-10.3); Creatinine Clr Calc Pharmacy 68.6 ml/min; Est GFR (African American) 109.7 ml/min; Est GFR (Non-African American) 94.6 ml/min; Potassium 4.3 mmol/L (3.5-5.1)
[2022-12-01 08:34] LABS: Mean Platelet Volume 9.6 fL (9.4-12.4); Ovalocytes 1+; Platelet Count 247 K/uL (130-400); Tear Drop Cells 1+
[2022-12-01] MEDS: UREA (UREA-NA) 15 GM PACK PO SCH ×2 (08:35→20:18)
[2022-12-01] MEDS: FERROUS SULFATE 325 MG TAB PO SCH ×3 (08:35→17:27)
[2022-12-01] MEDS: METOPROLOL SUCC 50MG EXT REL TAB PO SCH ×2 (08:35→20:19)
[2022-12-01] MEDS: ASCORBIC ACID 500 MG TAB PO SCH ×3 (08:36→17:27)
[2022-12-01] MEDS: MAGNESIUM OXIDE 400 MG TAB PO SCH (08:37)
[2022-12-01] MEDS: CETIRIZINE HCL 10 MG TABLET PO SCH (08:37)
[2022-12-01] MEDS: PANTOprazole 40 MG TAB PO SCH (08:37)
[2022-12-01] MEDS: PARoxetine HCL 20 MG TAB PO SCH (08:38)
[2022-12-01] MEDS: CLOPIDOGREL BISULFATE 75 MG TAB PO SCH (08:39)
[2022-12-01] MEDS: FAMOTIDINE 20 MG TAB PO SCH (08:39)
[2022-12-01] MEDS: UMECLIDINIUM BROMIDE 62.5MCG/BLISTER 7 PUFFS/INHALER INH SCH (08:40)
[2022-12-01] MEDS: FLUTICASONE PROPIONATE NA SPR 16 GM BTL SCH (08:40)
[2022-12-01] MEDS: FLUTICASONE/VILANTEROL 200/25MCG 14 PUFFS/INHALER INH SCH (08:40)
--- NOTE | 2022-12-01 10:45 | Nephrology Progress Note ---
Date of Service December 01, 2022 Assessment & Plan (1) Hyponatremia: Plan: she has had mild hyponatremia for the last few years with serum sodium ranging 130-134 and was intermittently getting salt tablet and was on chronic Lasix. as per the patient's salt tablets stopped about a month ago because of high blood pressure. She has never seen a strap folding machine operator for this problem. Sodium is 133 today -we will continue urea 15 g twice daily -kcl 20meq daily FFR 1200 ml per day Admission and Anticipated Discharge Date Admission Date: November 28, 2022 Subjective Seen for hyponatremia. She feels better today. No shortness of breath. She is on oxygen nasal cannula. Legs are not swollen. She is eating Review of Systems Review of Systems: All other systems were reviewed and negative except as noted in HPI Physical Exam Physical Exam: General exam: Appears comfortable, no acute distress HEENT: Pupils are equal and reactive to light Neck: No JVD, neck is supple trachea is midline Respiratory system: Clear breath sounds bilaterally. Gastrointestinal: Abdomen is soft, non distended, non tender, bowel sounds are present CVS: Regular rate and rhythm. No murmurs, rubs or gallops Musculoskeletal: No joint or muscle tenderness Extremities: Non tender, no edema, peripheral pulses are present Neuro: Oriented, no tremors, no focal neurological deficits Skin: No rashes Results & Data Vital Signs (Past 12 Hours) Vital Signs Temp Pulse Pulse Resp BP Pulse Ox O2 Del Method 12/01/22 08:36 65 12/01/22 08:36 Nasal Cannula 12/01/22 08:18 69 18 94 Nasal Cannula 12/01/22 07:09 36.8 C 65 19 116/74 99 Nasal Cannula 12/01/22 03:02 36.7 C 60 18 114/76 100 Nasal Cannula 11/30/22 23:11 72 11/30/22 23:10 36.9 C 67 18 90/59 L 99 Nasal Cannula, Oxymask O2 Flow Rate 12/01/22 08:36 12/01/22 08:36 2 12/01/22 08:18 2 12/01/22 07:09 2 12/01/22 03:02 2 11/30/22 23:11 11/30/22 23:10 2 Laboratory Results 12/01/22 07:34 12/01/22 07:34 WBC 10.42 RBC 4.89 MCV 65.4 L MCH 20.4 L MCHC 31.3 L RDW Std Deviation 33.7 L RDW Coeff of Emil 14.8 H Plt Count 247 MPV 9.6
--- NOTE | 2022-12-01 12:15 | Hospitalist Progress Note ---
Date of Service December 01, 2022 Assessment & Plan (1) NSTEMI (non-ST elevated myocardial infarction): Plan: 62-year-old female history of hyperlipidemia COPD on home oxygen 2 L, chronic seasonal allergic rhinitis, history of SVT, history of enlarged thoracic aorta, history of Raynaud's phenomenon, history of mitral valve prolapse, history of hypertension, history of GERD, generalized osteoarthritis, thalassemia minor, psoriasis, depression, s/p aortic valve replacement bioprosthetic valve, former smoker, recently last week had cardiac cath and s/p 3 stents at [facility] in [place] as per patient . Patient states having epigastric pain going on for last 1 month also with nausea and poor oral intake. Found to have elevated troponin and hyponatremia. Elevated high-sensitivity troponin likely secondary to demand ischemia. History of recent cardiac cath done on 11/[facility]/20[facility]: Coronary angiography demonstrating two-vessel disease including obtuse marginal branch vessel #2 of the circumflex and posterior lateral branch vessel of the RCA. A drug-eluting stent was implanted to the second obtuse marginal as well as the posterior lateral branch vessel of the right coronary artery. The peak to peak gradient across the aortic valve was 10-15 mmHg. Moderate (40-50%)mid to distal LAD disease also noted Initial troponin 1000; down trended. EKG on admission personally reviewed; normal sinus rhythm with ST changes in inferior leads. No chest pain. Echocardiogram results reviewed; EF of 65 to 70%; moderate concentric left ventricular hypertrophy. Bioprosthetic aortic valve. Ascending aorta mildly e nlarged; 4.4 to 45 cm. Continue on Plavix. Metoprolol succinate 50 mg twice a day. Verapamil on hold Continue monitor on telemetry Epigastric pain Persistent nausea Patient reports EGD in [facility] recently. CT abdomen/pelvis personally reviewed; no acute intra-abdominal finding GI on board; stool study for H. pylori ordered. Protonix changed to once daily. Started on Zyprexa 2.5 mg at bedtime for nausea. Reports symptomatic improvement. Zofran as needed. Advance diet as tolerated. Hyponatremia History of mild hyponatremia for last few years. Serum sodium ranging from 1 30-1 34. Sodium 126 on admission, was on salt tablets on admission. Urine osmolarity of 173 and urine random sodium of 13 Hyponatremia likely due to tea and toast diet ( low solute diet) Sodium improved on oral urea and fluid restriction. Monitor BMP. Fluid restriction of 1200 cc. Paroxysmal atrial fibrillation On metoprolol 50 mg twice daily On Xarelto Holding off on verapamil. Equivocal lyme IgM Confirmatory test only shows Lyme IgG 39 KDA band positive. Stop doxycycline. COPD on home oxygen Continue home inhalers and nebs as needed Enterorhinovirus on bio fire Supportive care Isolation precautions DVT prophylaxis on Xarelto Time spent evaluating patient, direct bedside care, chart review, placing orders, interpretation of diagnostic studies, discussion with consultants, patient, and family members, as well as other required patient management activities is 60 minutes. Please note the above document was generated using voice recognition software. It may contain grammatical, syntax or spelling errors. Any formal questions or concerns about the content, text or information contained within the body of this dictation should be directly addressed to the provider for clarification Admission and Anticipated Discharge Date Admission Date: November 28, 2022 Subjective Reports that her nausea and vomiting is much better. She is tolerating diet well. Afebrile and vital signs stable. Review of Systems Review of Systems: All systems reviewed & are unremarkable except as noted in Subjective Physical Exam Physical Exam: Constitutional: Awake, alert orient x3; comfortable. Not in distress. Respiratory: Bilateral vesicular breath sound. Cardiovascular: RRR, no murmur, no edema Vessels: no JVD or carotid bruit Chest: normal inspection of chest Abdomen: normal bowel sounds, soft, nontender, no hepatosplenomegaly Musculoskeletal: no cyanosis or clubbing, extremities motor strength 5/5 Skin: no rashes, warm and dry normal turgor Neurologic: PERRL, EOMI, accommodation nl, no face palsy, no dysarthria CN's II- XI intact bilaterally and moves all extremities Psychiatric: A+Ox3, euthymic affect Results & Data Results & Data Vital Signs (Past 12 Hours) Vital Signs Temp Pulse Pulse Resp BP Pulse Ox O2 Del Method 12/01/22 10:45 36.6 C 57 L 18 97/66 L 99 Nasal Cannula 12/01/22 08:36 65 12/01/22 08:36 Nasal Cannula 12/01/22 08:18 69 18 94 Nasal Cannula 12/01/22 07:09 36.8 C 65 19 116/74 99 Nasal Cannula 12/01/22 03:02 36.7 C 60 18 114/76 100 Nasal Cannula O2 Flow Rate 12/01/22 10:45 2 12/01/22 08:36 12/01/22 08:36 2 12/01/22 08:18 2 12/01/22 07:09 2 12/01/22 03:02 2 Laboratory Results Laboratory Results WBC 10.42 K/ul (4.8-10.8) 12/01/22 07:34 RBC 4.89 M/uL (4.20-5.40) 12/01/22 07:34 Hgb 10.0 g/dl (12.0-16.0) L 12/01/22 07:34 Hct 32.0 % (37.0-47.0) L 12/01/22 07:34 MCV 65.4 fL (80.0-100.0) L 12/01/22 07:34 MCH 20.4 pg (25.0-34.0) L 12/01/22 07:34 MCHC 31.3 g/dL (32.0-36.0) L 12/01/22 07:34 RDW Std Deviation 33.7 fL (36.4-46.3) L 12/01/22 07:34 RDW Coeff of Emil 14.8 % (11.5-14.5) H 12/01/22 07:34 Plt Count 247 K/uL (130-400) 12/01/22 07:34 MPV 9.6 fL (9.4-12.4) 12/01/22 07:34 Immature Gran % (Auto) 0.5 % 12/01/22 07:34 Neut % (Auto) 76.9 % 12/01/22 07:34 Lymph % (Auto) 7.0 % 12/01/22 07:34 Luce % (Auto) 10.5 % 12/01/22 07:34 Eos % (Auto) 4.6 % 12/01/22 07:34 Baso % (Auto) 0.5 % 12/01/22 07:34 Neut # (Auto) 8.02 K/uL (1.40-6.50) H 12/01/22 07:34 Lymph # (Auto) 0.73 K/uL (1.2-3.4) L 12/01/22 07:34 Luce # (Auto) 1.09 K/uL (0.11-0.59) H 12/01/22 07:34 Eos # (Auto) 0.48 K/uL (0-0.50) 12/01/22 07:34 Baso # (Auto) 0.05 K/uL (0-0.2) 12/01/22 07:34 Immature Gran # (Auto) 0.05 K/uL (0.01-0.20) 12/01/22 07:34 Platelet Estimate Normal (Normal) 11/28/22 16:08 Polychromasia 1+ 11/30/22 08:17 Microcytosis Present 11/30/22 08:17 Tear Drop Cells 1+ 12/01/22 07:34 Ovalocytes 1+ 12/01/22 07:34 Sodium 133 mmol/L (136-145) L 12/01/22 07:34 Potassium 4.3 mmol/L (3.5-5.1) 12/01/22 07:34 Chloride 94 mmol/L (98-107) L 12/01/22 07:34 Carbon Dioxide 36 mmol/L (21-32) H 12/01/22 07:34 Anion Gap 3 (3-11) 12/01/22 07:34 BUN 14 mg/dl (6-23) 12/01/22 07:34 Creatinine 0.69 mg/dl (0.6-1.2) 12/01/22 07:34 Est Cr Clr Drug Dosing 68.6 ml/min 12/01/22 07:34 Est GFR ( Amer) 109.7 ml/min 12/01/22 07:34 Est GFR (Non-Af Amer) 94.6 ml/min 12/01/22 07:34 BUN/Creatinine Ratio 20.3 (10-20) H 12/01/22 07:34 Glucose 94 mg/dl (70-99(Fasting)) 12/01/22 07:34 Osmolality 262 mOsm/kg (280-300) L 11/29/22 05:48 Calcium 8.9 mg/dl (8.6-10.3) 12/01/22 07:34 Phosphorus 3.7 mg/dl (2.5-4.9) 11/29/22 12:21 Magnesium 2.0 mg/dl (1.7-2.4) 11/29/22 05:48 Total Bilirubin 0.8 mg/dl (0.2-1.0) 11/28/22 16:08 AST 19 U/L (13-39) 11/28/22 16:08 ALT 10 U/L (7-52) 11/28/22 16:08 Alkaline Phosphatase 56 U/L (34-104) 11/28/22 16:08 Troponin I High Sens 870.4 pg/ml (0-14) H* 11/29/22 16:32 Total Protein 7.0 gm/dl (6.0-8.3) 11/28/22 16:08 Albumin 4.1 gm/dl (3.4-5.0) 11/28/22 16:08 Globulin 2.9 gm/dl (2.5-4.0) 11/28/22 16:08 Albumin/Globulin Ratio 1.4 (0.9-2) 11/28/22 16:08 Lipase 13 U/L (11-82) 11/28/22 16:08 Urine Color Yellow 11/28/22 20:50 Urine Appearance Clear (Clear) 11/28/22 20:50 Urine pH 8.0 (4.5-7.5) H 11/28/22 20:50 Ur Specific [place] > 1.045 (1.000-1.030) H 11/28/22 20:50 Urine Protein Negative (Negative) 11/28/22 20:50 Urine Glucose (UA) Negative (Negative) 11/28/22 20:50 Urine Ketones Negative (Negative) 11/28/22 20:50 Urine Blood Negative (Negative) 11/28/22 20:50 Urine Nitrite Negative (Negative) 11/28/22 20:50 Urine Bilirubin Negative (Negative) 11/28/22 20:50 Urine Urobilinogen Negative (Negative) 11/28/22 20:50 Ur Leukocyte Esterase Negative (Negative) 11/28/22 20:50 Urine Osmolality 173 mOsm/kg (500-800) L 11/29/22 11:08 Ur Random Sodium 13 mmol/L 11/29/22 11:08 Adenovirus (PCR) Not Detected (NotDetected) 11/28/22 Unknown B. pertussis DNA (PCR) Not Detected (NotDetected) 11/28/22 Unknown B.parapertussis DNA PCR Not Detected (NotDetected) 11/28/22 Unknown Lyme Disease IgG Ab Negative (Negative) 11/29/22 05:48 Lyme IgG (Western Blot) NEGATIVE (NEGATIVE) 11/29/22 05:48 Lyme IgG 18 kDa Band NON-REACTIVE 11/29/22 05:48 Lyme IgG 23 kDa Band NON-REACTIVE 11/29/22 05:48 Lyme IgG 28 kDa Band NON-REACTIVE 11/29/22 05:48 Lyme IgG 30 kDa Band NON-REACTIVE 11/29/22 05:48 Lyme IgG 39 kDa Band REACTIVE A 11/29/22 05:48 Lyme IgG 41 kDa Band NON-REACTIVE 11/29/22 05:48 Lyme IgG 45 kDa Band NON-REACTIVE 11/29/22 05:48 Lyme IgG 58 kDa Band NON-REACTIVE 11/29/22 05:48 Lyme IgG 66 kDa Band NON-REACTIVE 11/29/22 05:48 Lyme IgG 93 kDa Band NON-REACTIVE 11/29/22 05:48 Lyme IgM Ab (WB) NEGATIVE (NEGATIVE) 11/29/22 05:48 Lyme Disease IgM Ab Equivocal (Negative) A 11/29/22 05:48 Lyme IgM 23 kDa Band NON-REACTIVE 11/29/22 05:48 Lyme IgM 39 kDa Band NON-REACTIVE 11/29/22 05:48 Lyme IgM 41 kDa Band NON-REACTIVE 11/29/22 05:48 C. pneumoniae DNA (PCR) Not Detected (NotDetected) 11/28/22 Unknown Coronavirus OC43 (PCR) Not Detected (NotDetected) 11/28/22 Unknown Coronavirus HKU1 (PCR) Not Detected (NotDetected) 11/28/22 Unknown Coronavirus 229E (PCR) Not Detected (NotDetected) 11/28/22 Unknown SARS-CoV-2 (PCR) Not Detected (NotDetected) 11/28/22 Unknown Coronavirus NL63 (PCR) Not Detected (NotDetected) 11/28/22 Unknown Human Metapneumovir PCR Not Detected (NotDetected) 11/28/22 Unknown Influenza Type A (PCR) Not Detected (NotDetected) 11/28/22 Unknown Influenza Type B (PCR) Not Detected (NotDetected) 11/28/22 Unknown M. pneumoniae (PCR) Not Detected (NotDetected) 11/28/22 Unknown Parainfluenza 1 (PCR) Not Detected (NotDetected) 11/28/22 Unknown Parainfluenza 2 (PCR) Not Detected (NotDetected) 11/28/22 Unknown Parainfluenza 3 (PCR) Not Detected (NotDetected) 11/28/22 Unknown Parainfluenza 4 (PCR) Not Detected (NotDetected) 11/28/22 Unknown RSV (PCR) Not Detected (NotDetected) 11/28/22 Unknown Entero/Rhino (PCR) DETECTED (NotDetected) A* 11/28/22 Unknown Impressions Chest X-Ray 11/28/22 16:09 XR chest 1V not portable CLINICAL HISTORY: Tachycardia. COMPARISON STUDY: Chest CT October 05, 2021. Chest radiograph November 15, 2021. FINDINGS: There are median sternotomy wires and a prosthetic aortic valve. Cardiac size is normal. No pneumothorax or pleural effusion is present. There is emphysema. No consolidation is identified to suggest pneumonia. An irregular density projecting over the right hilum is unchanged from earlier chest CTs. This favors scarring. There has been no significant change in appearance of the chest. IMPRESSION: No acute cardiopulmonary findings. Emphysema. No change in appearance of the chest. ACT 112: Negative or not required by law. Electronically signed by: Reggie Gomez M.D. 11/28/2022 5:21 PM Abdomen/Pelvis CT 11/28/22 17:34 Exam(s): CT ABDOMEN + PELVIS With Contrast IV Amt: 92 ml optiray 320 EXAM: CT Abdomen and Pelvis With Intravenous Contrast CLINICAL HISTORY: Reason for exam: Epigastric abdominal pain, nausea. TECHNIQUE: Axial computed tomography images of the abdomen and pelvis with intravenous contrast. CTDI is 12.7 mGy and DLP is 515.74 mGy-cm. Automated exposure control was utilized for the study. A dose lowering technique was utilized adhering to the principles of ALARA. CONTRAST: Patient received 92 ml optiray 320 of IV contrast COMPARISON: No relevant prior studies available. FINDINGS: Lung bases: Unremarkable. No mass. No consolidation. ABDOMEN: Liver: Unremarkable. No focal hepatic lesion. Gallbladder and bile ducts: Cholecystectomy. No ductal dilation. Pancreas: Unremarkable. No mass. No ductal dilation. Spleen: Unremarkable. No splenomegaly. Adrenals: Unremarkable. No mass. Kidneys and ureters: Unremarkable. No hydronephrosis or delayed nephrogram. Stomach and bowel: Diverticulosis, without acute diverticulitis. No small bowel obstruction. No free air. PELVIS: Appendix: Normal appendix. Bladder: Unremarkable. Normal urinary bladder. Reproductive: Unremarkable as visualized. Normal CT appearance of the uterus. ABDOMEN and PELVIS: Intraperitoneal space: See above. Bones/joints: Degenerative changes of the spine. No acute fracture. No dislocation. Soft tissues: Unremarkable. Vasculature: Atherosclerotic changes of the aorta. No abdominal aortic aneurysm. Lymph nodes: Unremarkable. No enlarged lymph nodes. IMPRESSION: 1. No hydronephrosis or delayed nephrogram. 2. Normal appendix. 3. Cholecystectomy. 4. Diverticulosis, without acute diverticulitis. No small bowel obstruction. No free air. Electronically signed by: Renny Mary MD 11/28/22 20:23 PM
[2022-12-01] MEDS: ALBUT/IPRATROP 3MG/0.5MG NEB 3 ML VIAL INH PRN ×2 (12:31→20:44)
[2022-12-01] MEDS: POTASSIUM CHLORIDE 20 MEQ/15 ML UDC PO SCH (12:37)
--- NOTE | 2022-12-01 14:00 | Cardiology Progress Note ---
Date of Service December 01, 2022 Assessment & Plan (1) Elevated troponin I level: (2) Hypertensive heart disease: (3) S/P AVR (aortic valve replacement): (4) Paroxysmal atrial fibrillation: (5) Nausea: (6) Fatigue: Plan 62-year-old woman presents with nausea + abdominal discomfort + weight loss X 4 weeks Medical Dx: URI/viral infection +/_ Lyme Disease Cardiac Dx/reason for consult - elevated Troponin - NSTEMI Cardiac Dx: * CAD * S/P PCI to OM2 + RPL branch vessel * PAF on DOAC * S/P AVR ECHO performed on 11/29/22 * LVEF 65% * AVR noted * No AI/, Mild MR * No vegetations Recovering gradually from viral infection. No sx suggestive of ACS * Continue Plavix 75 mg po per day * Continue Xarelto 20 mg po per day * Pt with NEFTALI + Afib hx * HR overnight - 60's * May consider reduction in beta blockers - Lopressor 25 mg po BID * Marginal systolic BP * Verapamil - off * + CAD * Consider Statin * Consider Check Lipid Panel * K+ goal 4.5-5 * Mag goal >2 Hermilo Mitchell . Admission and Anticipated Discharge Date Admission Date: November 28, 2022 Subjective Events Overnight: * Ongoing GI upset Subjective: * No reported chest pain or dyspnea. Review of Systems Review of Systems: All systems reviewed & are unremarkable except as noted in HPI & below Physical Exam Physical Exam: Thin woman in no distress No elevation in JVP S1S2 2/6 systolic murmur CTA B Multiple ecchymoses - Bilateral Upper Extremities No LE edema Warm and perfused Results & Data Vital Signs (Past 12 Hours) Vital Signs Temp Pulse Pulse Resp BP Pulse Ox O2 Del Method 12/01/22 12:32 61 18 98 Nasal Cannula 12/01/22 10:45 36.6 C 57 L 18 97/66 L 99 Nasal Cannula 12/01/22 08:36 65 12/01/22 08:36 Nasal Cannula 12/01/22 08:18 69 18 94 Nasal Cannula 12/01/22 07:09 36.8 C 65 19 116/74 99 Nasal Cannula 12/01/22 03:02 36.7 C 60 18 114/76 100 Nasal Cannula O2 Flow Rate 12/01/22 12:32 2 12/01/22 10:45 2 12/01/22 08:36 12/01/22 08:36 2 12/01/22 08:18 2 12/01/22 07:09 2 12/01/22 03:02 2 Laboratory Results CBC 12/01/22 Range/Units 07:34 WBC 10.42 (4.8-10.8) K/ul RBC 4.89 (4.20-5.40) M/uL Hgb 10.0 L (12.0-16.0) g/dl Hct 32.0 L (37.0-47.0) % Plt Count 247 (130-400) K/uL Neut # (Auto) 8.02 H (1.40-6.50) K/uL Lymph # (Auto) 0.73 L (1.2-3.4) K/uL Simpson # (Auto) 1.09 H (0.11-0.59) K/uL Eos # (Auto) 0.48 (0-0.50) K/uL Baso # (Auto) 0.05 (0-0.2) K/uL Comprehensive Metabolic Panel 12/01/22 Range/Units 07:34 Sodium 133 L (136-145) mmol/L Potassium 4.3 (3.5-5.1) mmol/L Chloride 94 L (98-107) mmol/L Carbon Dioxide 36 H (21-32) mmol/L BUN 14 (6-23) mg/dl Creatinine 0.69 (0.6-1.2) mg/dl Glucose 94 (70-99(Fasting)) mg/dl Calcium 8.9 (8.6-10.3) mg/dl Intake and Output 11/30/22 12/01/22 12/01/22 22:59 06:59 14:59 Intake Total 110 / 1200 410 / 1200 Balance 110 / 1200 410 / 1200 Intake: IV 110 / 220 110 / 220 Doxycycline Hyclate 100 mg In 110 / 220 110 / 220 Dextrose 5% 100 ml @ 50 mls/hr IV Q12H STAR Rx#:[id number] Oral 300 / 980 Other: # Unmeasured Voids 1 1 Weight 60.1 kg Weight Measurement Method Standing Scale Collected Result Units Range Specimen 11/29/22 16:32 870.4H* pg/ml 0-14 11/29/22 10:40 876.0H* pg/ml 0-14 11/29/22 05:48 906.9H* pg/ml 0-14 11/28/22 20:45 956.7H* pg/ml 0-14 11/28/22 16:08 1000.6H* pg/ml 0-14
[2022-12-01] MEDS: ACETAMINOPHEN 325 MG TAB PO PRN ×2 (14:02→20:24)
[2022-12-01] MEDS: RIVAROXABAN 20 MG TAB PO SCH (17:28)
[2022-12-01] MEDS: MELATONIN 3 MG TAB PO PRN (20:17)
[2022-12-01] MEDS: OLANZAPINE 2.5 MG TAB PO SCH (20:19)
[2022-12-02] MEDS: ALBUT/IPRATROP 3MG/0.5MG NEB 3 ML VIAL INH PRN ×3 (04:28→21:51)
--- NOTE | 2022-12-02 07:07 | Electrocardiogram Report ---
Test Reason : Blood Pressure : / mmHG Vent. Rate : 062 BPM Atrial Rate : 062 BPM P-R Int : 134 ms QRS Dur : 082 ms QT Int : 430 ms P-R-T Axes : 070 073 128 degrees QTc Int : 436 ms Normal sinus rhythm Possible Left atrial enlargement Abnormal ECG Confirmed by Gorge Treviño ([id number]) on 12/02/2022 7:06:55 AM Referred By: REFERRED SELF Confirmed By:Nate Treviño
[2022-12-02 07:44] LABS: Basophils # (auto) 0.03 K/uL (0-0.2); Basophils % (auto) 0.3 %; Eosinophils # (auto) 0.63 K/uL (0-0.50); Eosinophils % (auto) 7.3 %; Hemoglobin 10.1 g/dl (12.0-16.0); Immature Granulocytes # (auto) 0.04 K/uL (0.01-0.20); Immature Granulocytes % (auto) 0.5 %; Lymphocytes # (auto) 0.97 K/uL (1.2-3.4); Lymphocytes % (auto) 11.3 %; Mean Corpuscular Hemoglobin 20.4 pg (25.0-34.0); Mean Corpuscular Hgb Conc 31.6 g/dL (32.0-36.0); Mean Corpuscular Volume 64.8 fL (80.0-100.0); Monocytes # (auto) 1.02 K/uL (0.11-0.59); Monocytes % (auto) 11.8 %; Neutrophils # (auto) 5.92 K/uL (1.40-6.50); Neutrophils % (auto) 68.8 %; RDW Coefficient of Variation 15.2 % (11.5-14.5); RDW Standard Deviation 33.6 fL (36.4-46.3); Red Blood Count 4.94 M/uL (4.20-5.40); White Blood Count 8.61 K/ul (4.8-10.8)
[2022-12-02 08:01] LABS: BUN Creatinine Ratio 41.4 (10-20); Calcium 9.2 mg/dl (8.6-10.3); Creatinine Clr Calc Pharmacy 81.6 ml/min; Est GFR (African American) 116.1 ml/min; Est GFR (Non-African American) 100.2 ml/min; Potassium 4.4 mmol/L (3.5-5.1)
[2022-12-02 08:13] LABS: Mean Platelet Volume 9.7 fL (9.4-12.4); Platelet Count 226 K/uL (130-400); Polychromasia 1+; Tear Drop Cells 1+
[2022-12-02] MEDS: UREA (UREA-NA) 15 GM PACK PO SCH ×2 (09:14→20:41)
[2022-12-02] MEDS: ASCORBIC ACID 500 MG TAB PO SCH ×3 (09:14→17:56)
[2022-12-02] MEDS: METOPROLOL SUCC 50MG EXT REL TAB PO SCH ×2 (09:14→20:42)
[2022-12-02] MEDS: MAGNESIUM OXIDE 400 MG TAB PO SCH (09:15)
[2022-12-02] MEDS: FERROUS SULFATE 325 MG TAB PO SCH ×3 (09:15→17:57)
[2022-12-02] MEDS: POTASSIUM CHLORIDE 20 MEQ/15 ML UDC PO SCH (09:15)
[2022-12-02] MEDS: FAMOTIDINE 20 MG TAB PO SCH (09:15)
[2022-12-02] MEDS: PARoxetine HCL 20 MG TAB PO SCH (09:15)
[2022-12-02] MEDS: CETIRIZINE HCL 10 MG TABLET PO SCH (09:15)
[2022-12-02] MEDS: FLUTICASONE/VILANTEROL 200/25MCG 14 PUFFS/INHALER INH SCH (09:16)
[2022-12-02] MEDS: UMECLIDINIUM BROMIDE 62.5MCG/BLISTER 7 PUFFS/INHALER INH SCH (09:16)
[2022-12-02] MEDS: PANTOprazole 40 MG TAB PO SCH (09:16)
[2022-12-02] MEDS: CLOPIDOGREL BISULFATE 75 MG TAB PO SCH (09:16)
[2022-12-02] MEDS: FLUTICASONE PROPIONATE NA SPR 16 GM BTL SCH (09:16)
[2022-12-02] MEDS: DOXYCYCLINE HYCLATE 100 MG CAP PO SCH ×2 (12:09→20:41)
[2022-12-02] MEDS: ACETAMINOPHEN 325 MG TAB PO PRN (12:16)
[2022-12-02] MEDS ORDERED: FLUCONAZOLE 50 MG TAB PO ONE (13:30)
--- NOTE | 2022-12-02 13:32 | Hospitalist Progress Note ---
Date of Service December 02, 2022 Assessment & Plan (1) NSTEMI (non-ST elevated myocardial infarction): Plan: Patient is a 62 yr female with H/O hyperlipidemia COPD on home oxygen 2 L, chronic seasonal allergic rhinitis, history of SVT, history of enlarged thoracic aorta, history of Raynaud's phenomenon, mitral valve prolapse, hypertension, GERD, generalized osteoarthritis, thalassemia minor, psoriasis, depression, s/p aortic valve replacement bioprosthetic valve, former smoker, recently last week had cardiac cath and s/p 3 stents at [facility] in [place] as per patient . Patient states having epigastric pain going on for last 1 month also with nausea and poor oral intake. Found to have elevated troponin and hyponatremia. CAD S/P PCI Elevated high-sensitivity troponin likely secondary to demand ischemia. H/O recent cardiac cath done on 11/19/20[facility]: Coronary angiography demonstrating two-vessel disease including obtuse marginal branch vessel #2 of the circumflex and posterior lateral branch vessel of the RCA. A drug-eluting stent was implanted to the second obtuse marginal as well as the posterior lateral branch vessel of the right coronary artery. The peak to peak gradient across the aortic valve was 10-15 mmHg. Moderate (40-50%)mid to distal LAD disease also noted H/O AVR Troponin trended down Denies any chest pain -Echocardiogram results reviewed; EF of 65 to 70%; moderate concentric left ventricular hypertrophy. Bioprosthetic aortic valve. Ascending aorta mildly enlarged; 4.4 to 45 cm. -CXR:No acute cardiopulmonary findings. Emphysema. No change in appearance of the chest. -- Continue Plavix, metoprolol Verapamil discontinued Appreciate cardiology input next Also on Xarelto for anticoagulation Monitor BP, adjust Lopressor dose as needed Check lipid panel, will consider statin Epigastric pain Persistent nausea Patient reports EGD in [facility] recently. --CT ABD:No hydronephrosis or delayed nephrogram. Normal appendix. Cholecystectomy. Diverticulosis, without acute diverticulitis. No small bowel obstruction. No free air. --GI on board; stool study for H. pylori ordered--pending Continue Protonix Started on Zyprexa 2.5 mg at bedtime for nausea. Reports symptomatic improvement. Zofran as needed. Tolerating regular diet Acute bronchitis Secondary to enterovirus infection --BioFire positive for enterorhinovirus Empirically on doxycycline Conservative management Oral thrush Started on clotrimazole Hyponatremia H/O mild hyponatremia for last few years. Serum sodium ranging from 130-134. Sodium 126 on admission, was on salt tablets on admission. Urine osmolarity of 173 and urine random sodium of 13 Hyponatremia likely due to tea and toast diet ( low solute diet) Sodium 134 today Continue urea, fluid restriction Monitor sodium levels Appreciate nephrology Input Diarrhea Likely secondary to enterovirus infection Monitor volume status Paroxysmal atrial fibrillation On metoprolol 50 mg twice daily On Xarelto Verapamil discontinued Equivocal lyme IgM Confirmatory test only shows Lyme IgG 39 KDA band positive. Does not meet criteria for Lyme's disease COPD on home oxygen Continue home inhalers and nebs as needed DVT Px: Xarelto Disposition Home as able Admission and Anticipated Discharge Date Admission Date: November 28, 2022 Subjective Patient is seen and examined at bedside States having cough with minimal left yellowish expectoration Nausea improved Reports dyspnea on exertion Also states having diarrhea yesterday, but no bowel movement this morning Noticed to have oral thrush and also reports vaginal itching Denies any chest pain, dizziness, abdominal pain No other complaints Review of Systems Review of Systems: All systems reviewed & are unremarkable except as noted in Subjective Physical Exam Physical Exam: Physical Exam: Vitals signs as noted above General Appearance:Moderately built and nourished, no apparent distress Head: normocephalic, Atraumatic Eyes: normal inspection, EOMI Neck: supple, Trachea midline Respiratory/Chest: Normal breath sounds, CTA, No accessory muscle use Cardiovascular: S1, S2, +murmur Abdomen/GI:Soft, Non tender, Bowel sounds present Extremities/Musculoskeletal:normal inspection, Trace edema Neurologic/Psych:AAOX3, grossly no focal neurological deficits Skin: normal color, warm Results & Data Results & Data Vital Signs (Past 12 Hours) Vital Signs Temp Pulse Pulse Resp BP Pulse Ox Pulse Ox 12/02/22 11:46 36.4 C L 61 16 117/77 100 12/02/22 09:58 60 18 94 12/02/22 10:07 64 12/02/22 09:51 12/02/22 07:50 36.7 C 64 18 131/82 99 12/02/22 04:29 65 18 98 12/02/22 03:00 98 12/02/22 04:19 36.5 C 63 18 157/88 H 99 O2 Del Method O2 Del Method O2 Flow Rate O2 Flow Rate 12/02/22 11:46 Nasal Cannula 2 12/02/22 09:58 Nasal Cannula 2 12/02/22 10:07 12/02/22 09:51 Nasal Cannula 2 12/02/22 07:50 Oxymask 2 12/02/22 04:29 Nasal Cannula 2 12/02/22 03:00 Nasal Cannula 2 12/02/22 04:19 Room Air Laboratory Results Short CBC 12/02/22 Range/Units 07:19 WBC 8.61 (4.8-10.8) K/ul Hgb 10.1 L (12.0-16.0) g/dl Hct 32.0 L (37.0-47.0) % Plt Count 226 (130-400) K/uL BMP 12/02/22 07:19 Sodium 134 L Potassium 4.4 Chloride 96 L Carbon Dioxide 34 H BUN 24 H Creatinine 0.58 L Glucose 93 Calcium 9.2
[2022-12-02] MEDS: ADVANCED PROBIOTIC 1250 MG CAPSULE PO SCH (14:18)
[2022-12-02] MEDS: ALBUTEROL 0.083% NEBU SOLN 3 ML VIAL INH PRN (14:38)
--- NOTE | 2022-12-02 15:02 | Nephrology Progress Note ---
Date of Service December 02, 2022 Assessment & Plan (1) Hyponatremia: Plan: she has had mild hyponatremia for the last few years with serum sodium ranging 130-134 and was intermittently getting salt tablet and was on chronic Lasix. as per the patient's salt tablets stopped about a month ago because of high blood pressure. She has never seen a elementary tutor for this problem. Sodium is 134 today -we will continue urea 15 g twice daily -kcl 20meq daily FFR 1200 ml per day Admission and Anticipated Discharge Date Admission Date: November 28, 2022 Subjective Seen for hyponatremia. She feels better today. Complains of weakness. No laura rtness of breath. Review of Systems Review of Systems: All other systems were reviewed and negative except as noted in HPI Physical Exam Physical Exam: General exam: Appears comfortable, no acute distress HEENT: Pupils are equal and reactive to light Neck: No JVD, neck is supple trachea is midline Respiratory system: Clear breath sounds bilaterally. Gastrointestinal: Abdomen is soft, non distended, non tender, bowel sounds are present CVS: Regular rate and rhythm. No murmurs, rubs or gallops Musculoskeletal: No joint or muscle tenderness Extremities: Non tender, no edema, peripheral pulses are present Neuro: Oriented, no tremors, no focal neurological deficits Skin: No rashes Results & Data Vital Signs (Past 12 Hours) Vital Signs Temp Pulse Pulse Resp BP Pulse Ox O2 Del Method 12/02/22 14:43 36.7 C 70 18 153/96 H 94 Nasal Cannula 12/02/22 14:39 66 18 95 Nasal Cannula 12/02/22 11:46 36.4 C L 61 16 117/77 100 Nasal Cannula 12/02/22 09:58 60 18 94 Nasal Cannula 12/02/22 10:07 64 12/02/22 09:51 Nasal Cannula 12/02/22 07:50 36.7 C 64 18 131/82 99 Oxymask 12/02/22 04:29 65 18 98 Nasal Cannula 12/02/22 04:19 36.5 C 63 18 157/88 H 99 Room Air O2 Flow Rate 12/02/22 14:43 2 12/02/22 14:39 2 12/02/22 11:46 2 12/02/22 09:58 2 12/02/22 10:07 12/02/22 09:51 2 12/02/22 07:50 2 12/02/22 04:29 2 12/02/22 04:19 Laboratory Results 12/02/22 07:19 12/02/22 07:19 WBC 8.61 RBC 4.94 MCV 64.8 L MCH 20.4 L MCHC 31.6 L RDW Std Deviation 33.6 L RDW Coeff of Emil 15.2 H Plt Count 226 MPV 9.7
[2022-12-02] MEDS: RIVAROXABAN 20 MG TAB PO SCH (15:30)
[2022-12-02] MEDS: CLOTRIMAZOLE 10 MG TROCHE BUCCAL SCH ×3 (15:30→23:44)
--- NOTE | 2022-12-02 16:02 | XRay Report ---
XR chest 1V portable HISTORY: Dyspnea COMPARISON: Chest 11/28/2022. FINDINGS: No pneumothorax or no pleural effusions. A few bibasilar linear densities favor subsegmenta l atelectasis or scarring. This is not significantly changed. No new focal lung consolidations to sug gest a pneumonia. No evidence for pulmonary edema. The heart remains normal in size. There are postst ernotomy changes. Emphysema again noted. IMPRESSION: No significant change compared to the prior study. No acute process. ACT 112: Negative or not required by law. Electronically signed by: Krzysztof Chin M.D. 12/02/2022 4:01 PM
[2022-12-02] MEDS: OLANZAPINE 2.5 MG TAB PO SCH (20:42)
[2022-12-02] MEDS: MELATONIN 3 MG TAB PO PRN (20:44)
[2022-12-03] MEDS: ALBUT/IPRATROP 3MG/0.5MG NEB 3 ML VIAL INH PRN ×3 (02:50→21:21)
[2022-12-03] MEDS: CLOTRIMAZOLE 10 MG TROCHE BUCCAL SCH ×5 (06:36→23:17)
[2022-12-03] MEDS: ALBUTEROL 0.083% NEBU SOLN 3 ML VIAL INH PRN ×2 (06:51→15:12)
[2022-12-03 07:21] LABS: Basophils # (auto) 0.03 K/uL (0-0.2); Basophils % (auto) 0.4 %; Eosinophils # (auto) 0.61 K/uL (0-0.50); Eosinophils % (auto) 8.1 %; Hematocrit (blood only) 29.9 % (37.0-47.0); Hemoglobin 9.4 g/dl (12.0-16.0); Immature Granulocytes # (auto) 0.02 K/uL (0.01-0.20); Immature Granulocytes % (auto) 0.3 %; Mean Corpuscular Hemoglobin 20.4 pg (25.0-34.0); Mean Corpuscular Hgb Conc 31.4 g/dL (32.0-36.0); Monocytes # (auto) 0.97 K/uL (0.11-0.59); Monocytes % (auto) 12.9 %; Neutrophils # (auto) 4.97 K/uL (1.40-6.50); Neutrophils % (auto) 66.3 %; RDW Coefficient of Variation 15.1 % (11.5-14.5); RDW Standard Deviation 34.3 fL (36.4-46.3)
[2022-12-03 07:40] LABS: Mean Platelet Volume 9.7 fL (9.4-12.4); Platelet Count 217 K/uL (130-400)
[2022-12-03 07:48] LABS: BUN Creatinine Ratio 40.4 (10-20); Creatinine Clr Calc Pharmacy 98.8 ml/min; Est GFR (African American) 120.4 ml/min; Est GFR (Non-African American) 103.9 ml/min; Magnesium 1.8 mg/dl (1.7-2.4); Potassium 4.6 mmol/L (3.5-5.1)
[2022-12-03 07:56] LABS: Basophilic Stippling 1+; Microcytosis Present; Polychromasia 1+; Tear Drop Cells 1+
[2022-12-03] MEDS: MAGNESIUM OXIDE 400 MG TAB PO SCH (09:16)
[2022-12-03] MEDS: DOXYCYCLINE HYCLATE 100 MG CAP PO SCH ×2 (09:16→19:59)
[2022-12-03] MEDS: POTASSIUM CHLORIDE 20 MEQ/15 ML UDC PO SCH (09:16)
[2022-12-03] MEDS: CLOPIDOGREL BISULFATE 75 MG TAB PO SCH (09:16)
[2022-12-03] MEDS: PARoxetine HCL 20 MG TAB PO SCH (09:17)
[2022-12-03] MEDS: FERROUS SULFATE 325 MG TAB PO SCH ×3 (09:17→17:04)
[2022-12-03] MEDS: FAMOTIDINE 20 MG TAB PO SCH (09:17)
[2022-12-03] MEDS: METOPROLOL SUCC 50MG EXT REL TAB PO SCH ×2 (09:18→19:58)
[2022-12-03] MEDS: CETIRIZINE HCL 10 MG TABLET PO SCH (09:18)
[2022-12-03] MEDS: PANTOprazole 40 MG TAB PO SCH (09:18)
[2022-12-03] MEDS: UREA (UREA-NA) 15 GM PACK PO SCH (09:18)
[2022-12-03] MEDS: ASCORBIC ACID 500 MG TAB PO SCH ×3 (09:19→17:04)
[2022-12-03] MEDS: FLUTICASONE/VILANTEROL 200/25MCG 14 PUFFS/INHALER INH SCH (09:19)
[2022-12-03] MEDS: UMECLIDINIUM BROMIDE 62.5MCG/BLISTER 7 PUFFS/INHALER INH SCH (09:20)
[2022-12-03] MEDS: FLUTICASONE PROPIONATE NA SPR 16 GM BTL SCH (09:20)
[2022-12-03] MEDS: ADVANCED PROBIOTIC 1250 MG CAPSULE PO SCH (09:20)
--- NOTE | 2022-12-03 11:03 | Nephrology Progress Note ---
Date of Service December 03, 2022 Assessment & Plan Admission and Anticipated Discharge Date Admission Date: November 28, 2022 Subjective Assessment & Plan (1) Hyponatremia: Plan: she has had mild hyponatremia for the last few years with serum sodium ranging 130-134 and was intermittently getting salt tablet and was on chronic Lasix. as per the patient's salt tablets stopped about a month ago because of high blood pressure. She has never seen a spanish speaking babysitter for this problem. Sodium is 134 today na has remained stable in her baseline--Will see without the Urea. 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 She feels better today. Complains of weakness. No shortness of breath. Review of Systems Review of Systems: All other systems were reviewed and negative except as noted in HPI Physical Exam Physical Exam: General exam: Appears comfortable, no acute distress HEENT: Pupils are equal and reactive to light Neck: No JVD, neck is supple trachea is midline Respiratory system: Clear breath sounds bilaterally. Gastrointestinal: Abdomen is soft, non distended, non tender, bowel sounds are present CVS: Regular rate and rhythm. No murmurs, rubs or gallops Musculoskeletal: No joint or muscle tenderness Extremities: Non tender, no edema, peripheral pulses are present Neuro: Oriented, no tremors, no focal neurological deficits Skin: No rashes Results & Data Vital Signs (Past 12 Hours) Results & Data Vital Signs (Past 12 Hours) Vital Signs Temp Pulse Pulse Pulse Resp BP BP 12/03/22 08:00 36.8 C 64 18 148/63 H 12/03/22 07:35 68 12/03/22 07:35 12/03/22 06:51 78 18 12/03/22 03:00 12/03/22 02:50 77 20 12/03/22 02:40 36.8 C 76 20 159/95 H 12/02/22 23:31 36.7 C 71 18 109/70 Pulse Ox O2 Del Method O2 Del Method O2 Flow Rate 12/03/22 08:00 97 Nasal Cannula 2 12/03/22 07:35 12/03/22 07:35 Nasal Cannula 2 12/03/22 06:51 96 Nasal Cannula 2 12/03/22 03:00 Nasal Cannula 12/03/22 02:50 96 Nasal Cannula 2 12/03/22 02:40 94 Nasal Cannula 2 12/02/22 23:31 Nasal Cannula 2.5
[2022-12-03] MEDS: FUROSEMIDE 40 MG TAB PO SCH (13:02)
[2022-12-03] MEDS: ACETAMINOPHEN 325 MG TAB PO PRN (13:05)
--- NOTE | 2022-12-03 15:41 | Hospitalist Progress Note ---
Date of Service December 03, 2022 Assessment & Plan (1) NSTEMI (non-ST elevated myocardial infarction): Plan: Patient is a 62 yr female with H/O hyperlipidemia COPD on home oxygen 2 L, chronic seasonal allergic rhinitis, history of SVT, history of enlarged thoracic aorta, history of Raynaud's phenomenon, mitral valve prolapse, hypertension, GERD, generalized osteoarthritis, thalassemia minor, psoriasis, depression, s/p aortic valve replacement bioprosthetic valve, former smoker, recently last week had cardiac cath and s/p 3 stents at [facility] in [place] as per patient . Patient states having epigastric pain going on for last 1 month also with nausea and poor oral intake. Found to have elevated troponin and hyponatremia. CAD S/P PCI Elevated high-sensitivity troponin likely secondary to demand ischemia. H/O recent cardiac cath done on 11/19/2022[facility]: Coronary angiography demonstrating two-vessel disease including obtuse marginal branch vessel #2 of the circumflex and posterior lateral branch vessel of the RCA. A drug-eluting stent was implanted to the second obtuse marginal as well as the posterior lateral branch vessel of the right coronary artery. The peak to peak gradient across the aortic valve was 10-15 mmHg. Moderate (40-50%)mid to distal LAD disease also noted H/O AVR Troponin trended down Denies any chest pain -Echocardiogram results reviewed; EF of 65 to 70%; moderate concentric left ventricular hypertrophy. Bioprosthetic aortic valve. Ascending aorta mildly enlarged; 4.4 to 45 cm. -CXR:No acute cardiopulmonary findings. Emphysema. No change in appearance of the chest. -- Continue Plavix, metoprolol Verapamil discontinued Appreciate cardiology input next Also on Xarelto for anticoagulation Monitor BP, adjust Lopressor dose as needed Restarted lasix Epigastric pain Persistent nausea Patient reports EGD in [facility] recently. --CT ABD:No hydronephrosis or delayed nephrogram. Normal appendix. Cholecystectomy. Diverticulosis, without acute diverticulitis. No small bowel obstruction. No free air. --GI on board; stool study for H. pylori ordered--pending Continue Protonix Started on Zyprexa 2.5 mg at bedtime for nausea. Reports symptomatic improvement. Zofran as needed. Tolerating regular diet Acute bronchitis Secondary to enterovirus infection --BioFire positive for enterorhinovirus Empirically on doxycycline Conservative management Slowly improving Oral thrush Continue clotrimazole Hyponatremia H/O mild hyponatremia for last few years. Serum sodium ranging from 130-134. Sodium 126 on admission, was on salt tablets on admission. Urine osmolarity of 173 and urine random sodium of 13 Hyponatremia likely due to tea and toast diet ( low solute diet) Sodium 133 today Urea discontinued Continue fluid restriction Monitor sodium levels Appreciate nephrology Input Diarrhea Likely secondary to enterovirus infection Monitor volume status Paroxysmal atrial fibrillation On metoprolol 50 mg twice daily On Xarelto Verapamil discontinued Equivocal lyme IgM Confirmatory test only shows Lyme IgG 39 KDA band positive. Does not meet criteria for Lyme's disease COPD on home oxygen Continue home inhalers and nebs as needed DVT Px: Xarelto Disposition Home as able Admission and Anticipated Discharge Date Admission Date: November 28, 2022 Subjective Patient is seen and examined at bedside Reports concern to develop volume overload Less diarrhea today Still has cough and reports dyspnea Discussed with nephrology today Denies any chest pain, dizziness, abdominal pain No other complaints Review of Systems Review of Systems: All systems reviewed & are unremarkable except as noted in Subjective Physical Exam Physical Exam: Physical Exam: Vitals signs as noted above General Appearance:Moderately built and nourished, no apparent distress Head: normocephalic, Atraumatic Eyes: normal inspection, EOMI Neck: supple, Trachea midline Respiratory/Chest: Normal breath sounds, CTA, No accessory muscle use Cardiovascular: S1, S2, +murmur Abdomen/GI:Soft, Non tender, Bowel sounds present Extremities/Musculoskeletal:normal inspection, Trace edema Neurologic/Psych:AAOX3, grossly no focal neurological deficits Skin: normal color, warm Results & Data Results & Data Vital Signs (Past 12 Hours) Vital Signs Temp Pulse Pulse Pulse Resp BP Pulse Ox 12/03/22 15:25 35 C L 68 16 156/94 H 100 12/03/22 15:13 62 18 95 12/03/22 11:37 71 18 98 12/03/22 11:08 36.8 C 68 16 125/73 97 12/03/22 08:00 36.8 C 64 18 148/63 H 97 12/03/22 07:35 68 12/03/22 07:35 12/03/22 06:51 78 18 96 O2 Del Method O2 Flow Rate 12/03/22 15:25 Nebulizer 12/03/22 15:13 Nasal Cannula 2 08/07/23 11:37 Nasal Cannula 2 12/03/22 11:08 Room Air 12/03/22 08:00 Nasal Cannula 2 12/03/22 07:35 12/03/22 07:35 Nasal Cannula 2 12/03/22 06:51 Nasal Cannula 2 Laboratory Results Short CBC 12/03/22 Range/Units 06:51 WBC 7.50 (4.8-10.8) K/ul Hgb 9.4 L (12.0-16.0) g/dl Hct 29.9 L (37.0-47.0) % Plt Count 217 (130-400) K/uL BMP 12/03/22 06:51 Sodium 133 L Potassium 4.6 Chloride 97 L Carbon Dioxide 33 H BUN 21 Creatinine 0.52 L Glucose 93 Calcium 9.0
[2022-12-03] MEDS: RIVAROXABAN 20 MG TAB PO SCH (17:04)
[2022-12-03] MEDS: OLANZAPINE 2.5 MG TAB PO SCH (19:58)
[2022-12-03] MEDS: MELATONIN 3 MG TAB PO PRN (21:04)
[2022-12-03] MEDS ORDERED: hydrALAZINE HCL 20 MG/ML VIAL IV ONE (21:12)
[2022-12-03] MEDS ORDERED: methylPREDNISolone 60 MG in SYRINGE 0 ML IV STA (21:13)
[2022-12-04] MEDS: ALBUTEROL 0.083% NEBU SOLN 3 ML VIAL INH PRN (03:06)
[2022-12-04] MEDS: CLOTRIMAZOLE 10 MG TROCHE BUCCAL SCH ×5 (06:27→23:33)
[2022-12-04] MEDS: ALBUT/IPRATROP 3MG/0.5MG NEB 3 ML VIAL INH PRN ×4 (06:46→21:29)
[2022-12-04] MEDS: METOPROLOL SUCC 50MG EXT REL TAB PO SCH ×2 (07:42→19:45)
[2022-12-04] MEDS: ACETAMINOPHEN 325 MG TAB PO PRN ×2 (07:44→14:37)
[2022-12-04 08:04] LABS: BUN Creatinine Ratio 24.1 (10-20); Calcium 9.6 mg/dl (8.6-10.3); Creatinine Clr Calc Pharmacy 95.6 ml/min; Est GFR (African American) 118.9 ml/min; Est GFR (Non-African American) 102.6 ml/min; Potassium 4.7 mmol/L (3.5-5.1)
[2022-12-04 08:07] LABS: Hematocrit (blood only) 33.4 % (37.0-47.0); Hemoglobin 10.4 g/dl (12.0-16.0)
[2022-12-04] MEDS: ASCORBIC ACID 500 MG TAB PO SCH ×3 (08:14→17:46)
[2022-12-04] MEDS: FAMOTIDINE 20 MG TAB PO SCH (08:14)
[2022-12-04] MEDS: PARoxetine HCL 20 MG TAB PO SCH (08:15)
[2022-12-04] MEDS: ADVANCED PROBIOTIC 1250 MG CAPSULE PO SCH (08:15)
[2022-12-04] MEDS: CETIRIZINE HCL 10 MG TABLET PO SCH (08:15)
[2022-12-04] MEDS: CLOPIDOGREL BISULFATE 75 MG TAB PO SCH (08:15)
[2022-12-04] MEDS: DOXYCYCLINE HYCLATE 100 MG CAP PO SCH ×2 (08:15→19:48)
[2022-12-04] MEDS: PANTOprazole 40 MG TAB PO SCH (08:15)
[2022-12-04] MEDS: MAGNESIUM OXIDE 400 MG TAB PO SCH (08:15)
[2022-12-04] MEDS: FUROSEMIDE 40 MG TAB PO SCH (08:15)
[2022-12-04] MEDS: FLUTICASONE PROPIONATE NA SPR 16 GM BTL SCH (08:16)
[2022-12-04] MEDS: FERROUS SULFATE 325 MG TAB PO SCH ×3 (08:16→17:46)
[2022-12-04] MEDS: FLUTICASONE/VILANTEROL 200/25MCG 14 PUFFS/INHALER INH SCH (08:16)
[2022-12-04] MEDS: UMECLIDINIUM BROMIDE 62.5MCG/BLISTER 7 PUFFS/INHALER INH SCH (08:17)
[2022-12-04 08:24] LABS: Ferritin 42.7 ng/ml (8-388)
[2022-12-04] MEDS ORDERED: LABETALOL HCL IV 5 MG/ML 20ML IV PRN (09:15)
[2022-12-04] MEDS ORDERED: clonazePAM 0.5 MG TAB PO PRN (09:23)
[2022-12-04] MEDS ORDERED: clonazePAM 0.5 MG TAB PO SCH (09:30)
--- NOTE | 2022-12-04 09:49 | Nephrology Progress Note ---
Date of Service December 04, 2022 Assessment & Plan Admission and Anticipated Discharge Date Admission Date: November 28, 2022 Subjective Assessment & Plan (1) Hyponatremia: Plan: she has had mild hyponatremia for the last few years with serum sodium ranging 130-134 and was intermittently getting salt tablet and was on chronic Lasix. as per the patient's salt tablets stopped about a month ago because of high blood pressure. She has never seen a cabinetmaker helper for this problem. Sodium is 134 today na has remained stable at her baseline--Will see without the Urea. 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 continue same FFR 1200 ml per day Subjective Seen for hyponatremia. She feels better today. Complains of weakness. No shortness of breath. Review of Systems Review of Systems: All other systems were reviewed and negative except as noted in HPI Physical Exam Physical Exam: General exam: Appears comfortable, no acute distress HEENT: Pupils are equal and reactive to light Neck: No JVD, neck is supple trachea is midline Respiratory system: Clear breath sounds bilaterally. Gastrointestinal: Abdomen is soft, non distended, non tender, bowel sounds are present CVS: Regular rate and rhythm. No murmurs, rubs or gallops Musculoskeletal: No joint or muscle tenderness Extremities: Non tender, no edema, peripheral pulses are present Neuro: Oriented, no tremors, no focal neurological deficits Skin: No rashes Results & Data Vital Signs (Past 12 Hours) Vital Signs Temp Pulse Pulse Resp BP Pulse Ox O2 Del Method 12/04/22 07:30 66 12/04/22 07:30 Nasal Cannula 12/04/22 08:55 170/108 H 12/04/22 08:00 36.8 C 69 18 165/106 H 99 Room Air 12/04/22 06:46 71 16 98 Nasal Cannula 12/04/22 03:00 12/04/22 03:10 36.5 C 66 16 121/83 98 Room Air 12/04/22 03:07 80 16 97 Nasal Cannula 12/03/22 23:18 72 12/03/22 23:03 36.4 C L 75 18 157/90 H 99 Nasal Cannula O2 Del Method O2 Flow Rate 12/04/22 07:30 12/04/22 07:30 2 12/04/22 08:55 12/04/22 08:00 12/04/22 06:46 2 12/04/22 03:00 Nasal Cannula 12/04/22 03:10 12/04/22 03:07 3 12/03/22 23:18 12/03/22 23:03 3.0
[2022-12-04] MEDS: LOSARTAN POTASSIUM 50 MG TAB PO SCH (09:55)
[2022-12-04] MEDS ORDERED: POLYETHYLENE (MIRALAX) 17 GM PACK PO PRN (11:59)
[2022-12-04] MEDS ORDERED: POLYETHYLENE (MIRALAX) 17 GM PACK PO ONE (11:59)
[2022-12-04] MEDS ORDERED: DOCUSATE SODIUM 100 MG CAP PO PRN (12:00)
[2022-12-04] MEDS: predniSONE 20 MG TAB PO SCH (12:30)
--- NOTE | 2022-12-04 15:03 | Hospitalist Progress Note ---
Date of Service December 04, 2022 Assessment & Plan (1) NSTEMI (non-ST elevated myocardial infarction): Plan: Patient is a 62 yr female with H/O hyperlipidemia COPD on home oxygen 2 L, chronic seasonal allergic rhinitis, history of SVT, history of enlarged thoracic aorta, history of Raynaud's phenomenon, mitral valve prolapse, hypertension, GERD, generalized osteoarthritis, thalassemia minor, psoriasis, depression, s/p aortic valve replacement bioprosthetic valve, former smoker, recently last week had cardiac cath and s/p 3 stents at [facility] in [place] as per patient . Patient states having epigastric pain going on for last 1 month also with nausea and poor oral intake. Found to have elevated troponin and hyponatremia. CAD S/P PCI Elevated high-sensitivity troponin likely secondary to demand ischemia. H/O recent cardiac cath done on 11/19/20[facility]: Coronary angiography demonstrating two-vessel disease including obtuse marginal branch vessel #2 of the circumflex and posterior lateral branch vessel of the RCA. A drug-eluting stent was implanted to the second obtuse marginal as well as the posterior lateral branch vessel of the right coronary artery. The peak to peak gradient across the aortic valve was 10-15 mmHg. Moderate (40-50%)mid to distal LAD disease also noted H/O AVR Troponin trended down Denies any chest pain -Echocardiogram results reviewed; EF of 65 to 70%; moderate concentric left ventricular hypertrophy. Bioprosthetic aortic valve. Ascending aorta mildly enlarged; 4.4 to 45 cm. -CXR:No acute cardiopulmonary findings. Emphysema. No change in appearance of the chest. -- Continue Plavix, metoprolol Verapamil discontinued Appreciate cardiology input next Also on Xarelto for anticoagulation Monitor BP, adjust Lopressor dose as needed Restarted lasix Continue current management Epigastric pain Persistent nausea Patient reports EGD in [facility] recently. --CT ABD:No hydronephrosis or delayed nephrogram. Normal appendix. Cholecystectomy. Diverticulosis, without acute diverticulitis. No small bowel obstruction. No free air. --GI on board; stool study for H. pylori ordered--pending Continue Protonix Started on Zyprexa 2.5 mg at bedtime for nausea. Reports symptomatic improvement. Zofran as needed. Tolerating regular diet Acute bronchitis Secondary to enterovirus infection --BioFire positive for enterorhinovirus Empirically on doxycycline Conservative management Started on low-dose prednisone Oral thrush Continue clotrimazole Hyponatremia H/O mild hyponatremia for last few years. Serum sodium ranging from 130-134. Sodium 126 on admission, was on salt tablets on admission. Urine osmolarity of 173 and urine random sodium of 13 Hyponatremia likely due to tea and toast diet ( low solute diet) Sodium 133 today Urea discontinued Appreciate nephrology Input Sodium level stable Sodium level stable off urea Continue fluid restriction Diarrhea Likely secondary to enterovirus infection Monitor volume status Currently feels constipated Bowel regimen as needed Paroxysmal atrial fibrillation On metoprolol 50 mg twice daily On Xarelto Verapamil discontinued Equivocal lyme IgM Confirmatory test only shows Lyme IgG 39 KDA band positive. Does not meet criteria for Lyme's disease COPD on home oxygen Continue home inhalers and nebs as needed DVT Px: Xarelto Disposition Home as able Admission and Anticipated Discharge Date Admission Date: November 28, 2022 Subjective Patient is seen and examined at bedside Noted to have elevated BP this morning, associated with headache Received IV Solu-Medrol overnight, states improved her symptoms Less cough, dyspnea today Reports constipation Denies any chest pain, dizziness, abdominal pain Review of Systems Review of Systems: All systems reviewed & are unremarkable except as noted in Subjective Physical Exam Physical Exam: Physical Exam: Vitals signs as noted above General Appearance:Moderately built and nourished, no apparent distress Head: normocephalic, Atraumatic Eyes: normal inspection, EOMI Neck: supple, Trachea midline Respiratory/Chest: Normal breath sounds, scant wheeze, No accessory muscle use Cardiovascular: S1, S2, +murmur Abdomen/GI:Soft, Non tender, Bowel sounds present Extremities/Musculoskeletal:normal inspection, Trace edema Neurologic/Psych:AAOX3, grossly no focal neurological deficits Skin: normal color, warm Results & Data Results & Data Vital Signs (Past 12 Hours) Vital Signs Temp Pulse Pulse Resp BP Pulse Ox O2 Del Method 12/04/22 12:25 71 16 98 Nasal Cannula 12/04/22 11:51 36.8 C 88 16 149/85 H 98 Nasal Cannula 12/04/22 07:30 66 12/04/22 07:30 Nasal Cannula 12/04/22 08:55 170/108 H 12/04/22 08:00 36.8 C 69 18 165/106 H 99 Room Air 08/08/23 06:46 71 16 98 Nasal Cannula 12/04/22 03:10 36.5 C 66 16 121/83 98 Room Air 12/04/22 03:07 80 16 97 Nasal Cannula O2 Flow Rate 12/04/22 12:25 2 12/04/22 11:51 2 12/04/22 07:30 12/04/22 07:30 2 12/04/22 08:55 12/04/22 08:00 12/04/22 06:46 2 12/04/22 03:10 12/04/22 03:07 3 Laboratory Results Short CBC 12/04/22 Range/Units 07:29 Hgb 10.4 L (12.0-16.0) g/dl Hct 33.4 L (37.0-47.0) % BMP 12/04/22 07:29 Sodium 133 L Potassium 4.7 Chloride 94 L Carbon Dioxide 33 H BUN 13 Creatinine 0.54 L Glucose 144 H Calcium 9.6
[2022-12-04] MEDS: ALUMINUM/MAGNESIUM SUSP 30 ML UDC PO PRN (16:41)
[2022-12-04] MEDS: ONDANSETRON INJ 2 MG/ML 2 ML VIAL IV PRN (17:05)
[2022-12-04] MEDS: RIVAROXABAN 20 MG TAB PO SCH (17:46)
[2022-12-04] MEDS: OLANZAPINE 2.5 MG TAB PO SCH (19:45)
[2022-12-04] MEDS: MELATONIN 3 MG TAB PO PRN (21:11)
[2022-12-04] MEDS: clonazePAM 0.5 MG TAB PO SCH (21:25)
[2022-12-05] MEDS: CLOTRIMAZOLE 10 MG TROCHE BUCCAL SCH ×3 (06:49→16:13)
[2022-12-05 06:56] LABS: BUN Creatinine Ratio 18.4 (10-20); Calcium 9.1 mg/dl (8.6-10.3); Creatinine Clr Calc Pharmacy 96.6 ml/min; Est GFR (African American) 122.7 ml/min; Est GFR (Non-African American) 105.9 ml/min; Magnesium 2.1 mg/dl (1.7-2.4); Potassium 4.3 mmol/L (3.5-5.1)
[2022-12-05] MEDS: ALBUT/IPRATROP 3MG/0.5MG NEB 3 ML VIAL INH PRN (06:57)
[2022-12-05 06:58] LABS: Hematocrit (blood only) 29.2 % (37.0-47.0); Hemoglobin 9.2 g/dl (12.0-16.0); Mean Corpuscular Hemoglobin 20.6 pg (25.0-34.0); Mean Corpuscular Hgb Conc 31.5 g/dL (32.0-36.0); Mean Corpuscular Volume 65.5 fL (80.0-100.0); Mean Platelet Volume 10.7 fL (9.4-12.4); Platelet Count 212 K/uL (130-400); RDW Coefficient of Variation 15.4 % (11.5-14.5); RDW Standard Deviation 34.6 fL (36.4-46.3); Red Blood Count 4.46 M/uL (4.20-5.40); White Blood Count 6.56 K/ul (4.8-10.8)
[2022-12-05] MEDS: CETIRIZINE HCL 10 MG TABLET PO SCH (08:07)
[2022-12-05] MEDS: FAMOTIDINE 20 MG TAB PO SCH (08:07)
[2022-12-05] MEDS: FUROSEMIDE 40 MG TAB PO SCH (08:07)
[2022-12-05] MEDS: PARoxetine HCL 20 MG TAB PO SCH (08:07)
[2022-12-05] MEDS: LOSARTAN POTASSIUM 50 MG TAB PO SCH (08:07)
[2022-12-05] MEDS: PANTOprazole 40 MG TAB PO SCH (08:07)
[2022-12-05] MEDS: DOXYCYCLINE HYCLATE 100 MG CAP PO SCH (08:08)
[2022-12-05] MEDS: FERROUS SULFATE 325 MG TAB PO SCH ×2 (08:08→12:07)
[2022-12-05] MEDS: predniSONE 20 MG TAB PO SCH (08:08)
[2022-12-05] MEDS: CLOPIDOGREL BISULFATE 75 MG TAB PO SCH (08:08)
[2022-12-05] MEDS: MAGNESIUM OXIDE 400 MG TAB PO SCH (08:08)
[2022-12-05] MEDS: ADVANCED PROBIOTIC 1250 MG CAPSULE PO SCH (08:08)
[2022-12-05] MEDS: ASCORBIC ACID 500 MG TAB PO SCH ×2 (08:09→12:07)
[2022-12-05] MEDS: METOPROLOL SUCC 50MG EXT REL TAB PO SCH (08:09)
[2022-12-05] MEDS: ACETAMINOPHEN 325 MG TAB PO PRN (08:14)
[2022-12-05] MEDS: clonazePAM 0.5 MG TAB PO SCH (08:14)
[2022-12-05] MEDS: FLUTICASONE PROPIONATE NA SPR 16 GM BTL SCH (08:15)
[2022-12-05] MEDS: UMECLIDINIUM BROMIDE 62.5MCG/BLISTER 7 PUFFS/INHALER INH SCH (08:15)
[2022-12-05] MEDS: FLUTICASONE/VILANTEROL 200/25MCG 14 PUFFS/INHALER INH SCH (08:18)
[2022-12-05] MEDS: ALBUTEROL 0.083% NEBU SOLN 3 ML VIAL INH PRN ×2 (10:40→15:12)
--- NOTE | 2022-12-05 12:53 | Nephrology Progress Note ---
Date of Service December 05, 2022 Assessment & Plan Admission and Anticipated Discharge Date Admission Date: November 28, 2022 Subjective Assessment & Plan (1) Hyponatremia: Plan: she has had mild hyponatremia for the last few years with serum sodium ranging 130-134 and was intermittently getting salt tablet and was on chronic Lasix. as per the patient's salt tablets stopped about a month ago because of high blood pressure. She has never seen a student truck driver for this problem. Sodium is 135 today na has remained stable at her baseline--even without the Urea na has not dropped. 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 continue same FFR 1200 ml per day. Bp better after losartan added. Continue lasix and losartan for discharge. No need of Salt tab nor urea. f/u Dr Herring in [facility] nephrology Subjective Seen for hyponatremia. She feels better today. No shortness of breath. Review of Systems Review of Systems: All other systems were reviewed and negative except as noted in HPI Physical Exam Physical Exam: General exam: Appears comfortable, no acute distress HEENT: Pupils are equal and reactive to light Neck: No JVD, neck is supple trachea is midline Respiratory system: Clear breath sounds bilaterally. Gastrointestinal: Abdomen is soft, non distended, non tender, bowel sounds are present CVS: Regular rate and rhythm. No murmurs, rubs or gallops Musculoskeletal: No joint or muscle tenderness Extremities: Non tender, no edema, peripheral pulses are present Neuro: Oriented, no tremors, no focal neurological deficits Skin: No rashes Results & Data Vital Signs (Past 12 Hours) Vital Signs Temp Pulse Resp BP BP Pulse Ox O2 Del Method 12/05/22 12:00 Nasal Cannula 12/05/22 11:04 36.4 C L 62 19 141/86 H 98 Nasal Cannula 12/05/22 10:42 64 18 95 Nasal Cannula 12/05/22 07:50 36.6 C 65 19 154/90 H 98 Nasal Cannula 12/05/22 08:00 Nasal Cannula 12/05/22 06:57 75 16 98 Nasal Cannula 12/05/22 03:30 36.7 C 70 16 117/72 100 Nasal Cannula O2 Flow Rate 12/05/22 12:00 2 12/05/22 11:04 3 12/05/22 10:42 3 12/05/22 07:50 3 12/05/22 08:00 2 12/05/22 06:57 2 12/05/22 03:30 3.0
--- NOTE | 2022-12-05 13:03 | Hospitalist Progress Note ---
Date of Service December 05, 2022 Assessment & Plan (1) NSTEMI (non-ST elevated myocardial infarction): Plan: Patient is a 62 yr female with H/O hyperlipidemia COPD on home oxygen 2 L, chronic seasonal allergic rhinitis, history of SVT, history of enlarged thoracic aorta, history of Raynaud's phenomenon, mitral valve prolapse, hypertension, GERD, generalized osteoarthritis, thalassemia minor, psoriasis, depression, s/p aortic valve replacement bioprosthetic valve, former smoker, recently last week had cardiac cath and s/p 3 stents at [facility] in [place] as per patient . Patient states having epigastric pain going on for last 1 month also with nausea and poor oral intake. Found to have elevated troponin and hyponatremia. CAD S/P PCI Elevated high-sensitivity troponin likely secondary to demand ischemia. H/O recent cardiac cath done on 11/[facility]: Coronary angiography demonstrating two-vessel disease including obtuse marginal branch vessel #2 of the circumflex and posterior lateral branch vessel of the RCA. A drug-eluting stent was implanted to the second obtuse marginal as well as the posterior lateral branch vessel of the right coronary artery. The peak to peak gradient across the aortic valve was 10-15 mmHg. Moderate (40-50%)mid to distal LAD disease also noted H/O AVR Troponin trended down Denies any chest pain -Echocardiogram results reviewed; EF of 65 to 70%; moderate concentric left ventricular hypertrophy. Bioprosthetic aortic valve. Ascending aorta mildly enlarged; 4.4 to 45 cm. -CXR:No acute cardiopulmonary findings. Emphysema. No change in appearance of the chest. -- Continue Plavix, metoprolol Verapamil discontinued Appreciate cardiology input next Also on Xarelto for anticoagulation Continue metoprolol 50 mg twice daily Restarted lasix 40 mg daily Plan to discharge on current medications Epigastric pain Persistent nausea Patient reports EGD in [facility] recently. --CT ABD:No hydronephrosis or delayed nephrogram. Normal appendix. Cholecystecto my. Diverticulosis, without acute diverticulitis. No small bowel obstruction. No free air. --GI on board; stool study for H. pylori-Negative Continue Protonix Started on Zyprexa 2.5 mg at bedtime for nausea. Reports symptomatic improvement. Zofran as needed. Tolerating regular diet Acute bronchitis Secondary to enterovirus infection --BioFire positive for entero/rhinovirus Empirically on doxycycline Conservative management Started on low-dose prednisone Clinically improving Oral thrush Continue clotrimazole Hyponatremia H/O mild hyponatremia for last few years. Serum sodium ranging from 130-134. Sodium 126 on admission, was on salt tablets on admission. Urine osmolarity of 173 and urine random sodium of 13 Hyponatremia likely due to tea and toast diet ( low solute diet) Sodium 135 today Urea discontinued Appreciate nephrology Input Sodium level stable Sodium level stable off urea Continue fluid restriction Needs follow-up with nephrology upon discharge Diarrhea Likely secondary to enterovirus infection Monitor volume status Currently feels constipated Bowel regimen as needed Resolved Paroxysmal atrial fibrillation On metoprolol 50 mg twice daily On Xarelto Verapamil discontinued Equivocal lyme IgM Confirmatory test only shows Lyme IgG 39 KDA band positive. Does not meet criteria for Lyme's disease COPD on home oxygen Continue home inhalers and nebs as needed DVT Px: Xarelto Disposition Home Admission and Anticipated Discharge Date Admission Date: November 28, 2022 Subjective Patient is seen and examined at bedside States feeling better today Reports having acid reflux/heartburn yesterday No other new complaints Cough, dyspnea continues to improve Denies any chest pain, dizziness, abdominal pain Plan to discharge home today Review of Systems Review of Systems: All systems reviewed & are unremarkable except as noted in Subjective Physical Exam Physical Exam: Physical Exam: Vitals signs as noted above General Appearance:Moderately built and nourished, no apparent distress Head: normocephalic, Atraumatic Eyes: normal inspection, EOMI Neck: supple, Trachea midline Respiratory/Chest: Normal breath sounds, scant wheeze, No accessory muscle use Cardiovascular: S1, S2, +murmur Abdomen/GI:Soft, Non tender, Bowel sounds present Extremities/Musculoskeletal:normal inspection, Trace edema Neurologic/Psych:AAOX3, grossly no focal neurological deficits Skin: normal color, warm Results & Data Results & Data Vital Signs (Past 12 Hours) Vital Signs Temp Pulse Resp BP BP Pulse Ox O2 Del Method 12/05/22 12:00 Nasal Cannula 12/05/22 11:04 36.4 C L 62 19 141/86 H 98 Nasal Cannula 12/05/22 10:42 64 18 95 Nasal Cannula 12/05/22 07:50 36.6 C 65 19 154/90 H 98 Nasal Cannula 12/05/22 08:00 Nasal Cannula 12/05/22 06:57 75 16 98 Nasal Cannula 12/05/22 03:30 36.7 C 70 16 117/72 100 Nasal Cannula O2 Flow Rate 12/05/22 12:00 2 12/05/22 11:04 3 12/05/22 10:42 3 12/05/22 07:50 3 12/05/22 08:00 2 12/05/22 06:57 2 12/05/22 03:30 3.0 Laboratory Results Short CBC 12/05/22 Range/Units 05:54 WBC 6.56 (4.8-10.8) K/ul Hgb 9.2 L (12.0-16.0) g/dl Hct 29.2 L (37.0-47.0) % Plt Count 212 (130-400) K/uL BMP 12/05/22 05:54 Sodium 135 L Potassium 4.3 Chloride 97 L Carbon Dioxide 33 H BUN 9 Creatinine 0.49 L Glucose 84 Calcium 9.1
--- NOTE | 2022-12-05 13:23 | Discharge Summary ---
Date of Service December 05, 2022 Admission HPI Per Admitting Provider 62-year-old female history of hyperlipidemia COPD on home oxygen 2 L, chronic seasonal allergic rhinitis, history of SVT, history of enlarged thoracic aorta, history of Raynaud's phenomenon, history of mitral valve prolapse, history of hypertension, history of GERD, generalized osteoarthritis, thalassemia minor, psoriasis, depression, s/p aortic valve replacement bioprosthetic valve, former smoker, recently last week had cardiac cath and s/p 3 stents at [facility] in [place] as per patient . Patient states having epigastric pain going on for last 1 month also with nausea and poor oral intake. Her EKG is always abnormal as per patient. Last week cardiac, showed 3 small blockages as per patient and 3 stents placed expecting her abdominal pain to improve. But it did not improve her abdominal pain. And she also had EGD which showed gastritis.As her abdominal pain and nausea is not improving her PCP advised to come to the ER today. Denies any chest pain or shortness of breath. Will amb ulating she is not getting chest pain. Afebrile. No headache. Vision is okay. No sore throat. No headaches. Normal bowel and bladder movements. Past medical history as mentioned above Past surgical history colonoscopy, cardiac cath, bioprosthetic aortic valve replacement Admission Exam Per Admitting Provider General- Not in distress Head- atraumatic Eyes- PERRL ENT- oropharynx clear Neck- supple, no JVD, Lungs- clear to auscultation and percussion no added sounds Heart- regular rate rhythm; no murmur, no gallop, Abdomen- normal bowel sounds, soft, epigastric tenderness present, no distension Extremities- no pretibial edema, no erythema seen. Neuro- alert, oriented x 3; PERRL, ; no facial palsy; no dysarthria;moves extremities Skin- warm & dry Principal Diagnosis Coronary artery disease Acute bronchitis Enterovirus infection Oral thrush Hyponatremia Discharge Data Allergies Allergy/AdvReac Type Severity Reaction Status Date / Time citalopram [From Celexa] Allergy Intermediate Itching Verified 11/28/22 18:36 clarithromycin [From Biaxin] AdvReac Severe Abdominal Verified 11/28/22 18:36 Pain amoxicillin [From DisperMox] AdvReac Intermediate diarrhea Verified 11/28/22 18:36 cefuroxime AdvReac Intermediate Diarrhea/ra Verified 11/28/22 18:36 sh/fatigue doxycycline AdvReac Intermediate Nausea and Verified 11/28/22 18:36 Vomiting levofloxacin [From Levaquin] AdvReac Intermediate Hallucinati Verified 11/28/22 18:36 ons/dizzine ss Consultations 11/28/22 20:41 ED Decision to Admit Stat 11/29/22 08:00 Consult Cardiology Routine Consult Gastroenterology Routine Consult Nephrology Routine Procedures Performed Laboratory Results WBC 6.56 K/ul (4.8-10.8) 12/05/22 05:54 RBC 4.46 M/uL (4.20-5.40) 12/05/22 05:54 Hgb 9.2 g/dl (12.0-16.0) L 12/05/22 05:54 Hct 29.2 % (37.0-47.0) L 12/05/22 05:54 MCV 65.5 fL (80.0-100.0) L 12/05/22 05:54 MCH 20.6 pg (25.0-34.0) L 12/05/22 05:54 MCHC 31.5 g/dL (32.0-36.0) L 12/05/22 05:54 RDW Std Deviation 34.6 fL (36.4-46.3) L 12/05/22 05:54 RDW Coeff of Emil 15.4 % (11.5-14.5) H 12/05/22 05:54 Plt Count 212 K/uL (130-400) 12/05/22 05:54 MPV 10.7 fL (9.4-12.4) 12/05/22 05:54 Immature Gran % (Auto) 0.3 % 12/03/22 06:51 Neut % (Auto) 66.3 % 12/03/22 06:51 Lymph % (Auto) 12.0 % 12/03/22 06:51 [place] % (Auto) 12.9 % 12/03/22 06:51 Eos % (Auto) 8.1 % 12/03/22 06:51 Baso % (Auto) 0.4 % 12/03/22 06:51 Neut # (Auto) 4.97 K/uL (1.40-6.50) 12/03/22 06:51 Lymph # (Auto) 0.90 K/uL (1.2-3.4) L 12/03/22 06:51 [place] # (Auto) 0.97 K/uL (0.11-0.59) H 12/03/22 06:51 Eos # (Auto) 0.61 K/uL (0-0.50) H 12/03/22 06:51 Baso # (Auto) 0.03 K/uL (0-0.2) 12/03/22 06:51 Immature Gran # (Auto) 0.02 K/uL (0.01-0.20) 12/03/22 06:51 Platelet Estimate Normal (Normal) 11/28/22 16:08 Polychromasia 1+ 12/03/22 06:51 Basophilic Stippling 1+ 12/03/22 06:51 Microcytosis Present 12/03/22 06:51 Tear Drop Cells 1+ 12/03/22 06:51 Ovalocytes 1+ 12/01/22 07:34 Sodium 135 mmol/L (136-145) L 12/05/22 05:54 Potassium 4.3 mmol/L (3.5-5.1) 12/05/22 05:54 Chloride 97 mmol/L (98-107) L 12/05/22 05:54 Carbon Dioxide 33 mmol/L (21-32) H 12/05/22 05:54 Anion Gap 5 (3-11) 12/05/22 05:54 BUN 9 mg/dl (6-23) 12/05/22 05:54 Creatinine 0.49 mg/dl (0.6-1.2) L 12/05/22 05:54 Est Cr Clr Drug Dosing 96.6 ml/min 12/05/22 05:54 Est GFR ( Amer) 122.7 ml/min 12/05/22 05:54 Est GFR (Non-Af Amer) 105.9 ml/min 12/05/22 05:54 BUN/Creatinine Ratio 18.4 (10-20) 12/05/22 05:54 Glucose 84 mg/dl (70-99(Fasting)) 12/05/22 05:54 Osmolality 262 mOsm/kg (280-300) L 11/29/22 05:48 Calcium 9.1 mg/dl (8.6-10.3) 12/05/22 05:54 Phosphorus 3.7 mg/dl (2.5-4.9) 11/29/22 12:21 Magnesium 2.1 mg/dl (1.7-2.4) 12/05/22 05:54 Iron 49 mcg/dl (35-150) 12/04/22 07:29 Transferrin 242 mg/dl (200-360) 12/04/22 07:29 Ferritin 42.7 ng/ml (8-388) 12/04/22 07:29 Total Bilirubin 0.8 mg/dl (0.2-1.0) 11/28/22 16:08 AST 19 U/L (13-39) 11/28/22 16:08 ALT 10 U/L (7-52) 11/28/22 16:08 Alkaline Phosphatase 56 U/L (34-104) 11/28/22 16:08 Troponin I High Sens 870.4 pg/ml (0-14) H* 11/29/22 16:32 Total Protein 7.0 gm/dl (6.0-8.3) 11/28/22 16:08 Albumin 4.1 gm/dl (3.4-5.0) 11/28/22 16:08 Globulin 2.9 gm/dl (2.5-4.0) 11/28/22 16:08 Albumin/Globulin Ratio 1.4 (0.9-2) 11/28/22 16:08 Triglycerides 175 mg/dl (0-150) H 12/03/22 06:51 Cholesterol 159 mg/dl (0-200) 12/03/22 06:51 LDL Cholesterol, Calc 71 mg/dl 12/03/22 06:51 VLDL Cholesterol, Calc 35 mg/dl (0-30) H 12/03/22 06:51 HDL Cholesterol 53 mg/dl 12/03/22 06:51 Cholesterol/HDL Ratio 3.0 (0-5) 12/03/22 06:51 Lipase 13 U/L (11-82) 11/28/22 16:08 Urine Color Yellow 11/28/22 20:50 Urine Appearance Clear (Clear) 11/28/22 20:50 Urine pH 8.0 (4.5-7.5) H 11/28/22 20:50 Ur Specific [place] > 1.045 (1.000-1.030) H 11/28/22 20:50 Urine Protein Negative (Negative) 11/28/22 20:50 Urine Glucose (UA) Negative (Negative) 11/28/22 20:50 Urine Ketones Negative (Negative) 11/28/22 20:50 Urine Blood Negative (Negative) 11/28/22 20:50 Urine Nitrite Negative (Negative) 11/28/22 20:50 Urine Bilirubin Negative (Negative) 11/28/22 20:50 Urine Urobilinogen Negative (Negative) 11/28/22 20:50 Ur Leukocyte Esterase Negative (Negative) 11/28/22 20:50 Urine Osmolality 173 mOsm/kg (500-800) L 11/29/22 11:08 Ur Random Sodium 13 mmol/L 11/29/22 11:08 Stool H. pylori Ag SEE NOTE 11/29/22 17:15 Adenovirus (PCR) Not Detected (NotDetected) 11/28/22 Unknown B. pertussis DNA (PCR) Not Detected (NotDetected) 11/28/22 Unknown B.parapertussis DNA PCR Not Detected (NotDetected) 11/28/22 Unknown Lyme Disease IgG Ab Negative (Negative) 11/29/22 05:48 Lyme IgG (Western Blot) NEGATIVE (NEGATIVE) 11/29/22 05:48 Lyme IgG 18 kDa Band NON-REACTIVE 11/29/22 05:48 Lyme IgG 23 kDa Band NON-REACTIVE 11/29/22 05:48 Lyme IgG 28 kDa Band NON-REACTIVE 11/29/22 05:48 Lyme IgG 30 kDa Band NON-REACTIVE 11/29/22 05:48 Lyme IgG 39 kDa Band REACTIVE A 11/29/22 05:48 Lyme IgG 41 kDa Band NON-REACTIVE 11/29/22 05:48 Lyme IgG 45 kDa Band NON-REACTIVE 11/29/22 05:48 Lyme IgG 58 kDa Band NON-REACTIVE 11/29/22 05:48 Lyme IgG 66 kDa Band NON-REACTIVE 11/29/22 05:48 Lyme IgG 93 kDa Band NON-REACTIVE 11/29/22 05:48 Lyme IgM Ab (WB) NEGATIVE (NEGATIVE) 11/29/22 05:48 Lyme Disease IgM Ab Equivocal (Negative) A 11/29/22 05:48 Lyme IgM 23 kDa Band NON-REACTIVE 11/29/22 05:48 Lyme IgM 39 kDa Band NON-REACTIVE 11/29/22 05:48 Lyme IgM 41 kDa Band NON-REACTIVE 11/29/22 05:48 C. pneumoniae DNA (PCR) Not Detected (NotDetected) 11/28/22 Unknown Coronavirus OC43 (PCR) Not Detected (NotDetected) 11/28/22 Unknown Coronavirus HKU1 (PCR) Not Detected (NotDetected) 11/28/22 Unknown Coronavirus 229E (PCR) Not Detected (NotDetected) 11/28/22 Unknown SARS-CoV-2 (PCR) Not Detected (NotDetected) 11/28/22 Unknown Coronavirus NL63 (PCR) Not Detected (NotDetected) 11/28/22 Unknown Human Metapneumovir PCR Not Detected (NotDetected) 11/28/22 Unknown Influenza Type A (PCR) Not Detected (NotDetected) 11/28/22 Unknown Influenza Type B (PCR) Not Detected (NotDetected) 11/28/22 Unknown M. pneumoniae (PCR) Not Detected (NotDetected) 11/28/22 Unknown Parainfluenza 1 (PCR) Not Detected (NotDetected) 11/28/22 Unknown Parainfluenza 2 (PCR) Not Detected (NotDetected) 11/28/22 Unknown Parainfluenza 3 (PCR) Not Detected (NotDetected) 11/28/22 Unknown Parainfluenza 4 (PCR) Not Detected (NotDetected) 11/28/22 Unknown RSV (PCR) Not Detected (NotDetected) 11/28/22 Unknown Entero/Rhino (PCR) DETECTED (NotDetected) A* 11/28/22 Unknown Impressions Abdomen/Pelvis CT 11/28/22 17:34 Exam(s): CT ABDOMEN + PELVIS With Contrast IV Amt: 92 ml optiray 320 EXAM: CT Abdomen and Pelvis With Intravenous Contrast CLINICAL HISTORY: Reason for exam: Epigastric abdominal pain, nausea. TECHNIQUE: Axial computed tomography images of the abdomen and pelvis with intravenous contrast. CTDI is 12.7 mGy and DLP is 515.74 mGy-cm. Automated exposure control was utilized for the study. A dose lowering technique was utilized adhering to the principles of ALARA. CONTRAST: Patient received 92 ml optiray 320 of IV contrast COMPARISON: No relevant prior studies available. FINDINGS: Lung bases: Unremarkable. No mass. No consolidation. ABDOMEN: Liver: Unremarkable. No focal hepatic lesion. Gallbladder and bile ducts: Cholecystectomy. No ductal dilation. Pancreas: Unremarkable. No mass. No ductal dilation. Spleen: Unremarkable. No splenomegaly. Adrenals: Unremarkable. No mass. Kidneys and ureters: Unremarkable. No hydronephrosis or delayed nephrogram. Stomach and bowel: Diverticulosis, without acute diverticulitis. No small bowel obstruction. No free air. PELVIS: Appendix: Normal appendix. Bladder: Unremarkable. Normal urinary bladder. Reproductive: Unremarkable as visualized. Normal CT appearance of the uterus. ABDOMEN and PELVIS: Intraperitoneal space: See above. Bones/joints: Degenerative changes of the spine. No acute fracture. No dislocation. Soft tissues: Unremarkable. Vasculature: Atherosclerotic changes of the aorta. No abdominal aortic aneurysm. Lymph nodes: Unremarkable. No enlarged lymph nodes. IMPRESSION: 1. No hydronephrosis or delayed nephrogram. 2. Normal appendix. 3. Cholecystectomy. 4. Diverticulosis, without acute diverticulitis. No small bowel obstruction. No free air. Electronically signed by: Renny Mary MD 11/28/22 20:23 PM Chest X-Ray 12/02/22 15:37 XR chest 1V portable HISTORY: Dyspnea COMPARISON: Chest 11/28/2022. FINDINGS: No pneumothorax or no pleural effusions. A few bibasilar linear densities favor subsegmental atelectasis or scarring. This is not significantly changed. No new focal lung consolidations to suggest a pneumonia. No evidence for pulmonary edema. The heart remains normal in size. There are poststernotomy changes. Emphysema again noted. IMPRESSION: No significant change compared to the prior study. No acute process. ACT 112: Negative or not required by law. Electronically signed by: Krzysztof Chin M.D. 12/02/2022 4:01 PM Ordered Studies 11/28/22 17:34 CT Abd and Pelvis [CT abd pelvis IV con only] Stat Hospital Course (1) NSTEMI (non-ST elevated myocardial infarction): Patient is a 62 yr female with H/O hyperlipidemia COPD on home oxygen 2 L, chronic seasonal allergic rhinitis, history of SVT, history of enlarged thoracic aorta, history of Raynaud's phenomenon, mitral valve prolapse, hypertension, GERD, generalized osteoarthritis, thalassemia minor, psoriasis, depression, s/p aortic valve replacement bioprosthetic valve, former smoker, recently last week had cardiac cath and s/p 3 stents at [facility] in [place] as per patient . Patient states having epigastric pain going on for last 1 month also with nausea and poor oral intake. Found to have elevated troponin and hyponatremia. CAD S/P PCI Elevated high-sensitivity troponin likely secondary to demand ischemia. H/O recent cardiac cath done on [facility]: Coronary angiography demonstrating two-vessel disease including obtuse marginal branch vessel #2 of the circumflex and posterior lateral branch vessel of the RCA. A drug-eluting stent was implanted to the second obtuse marginal as well as the posterior lateral branch vessel of the right coronary artery. The peak to peak gradient across the aortic valve was 10-15 mmHg. Moderate (40-50%)mid to distal LAD disease also noted H/O AVR Troponin trended down Denies any chest pain -Echocardiogram results reviewed; EF of 65 to 70%; moderate concentric left ventricular hypertrophy. Bioprosthetic aortic valve. Ascending aorta mildly enlarged; 4.4 to 45 cm. -CXR:No acute cardiopulmonary findings. Emphysema. No change in appearance of the chest. -- Continue Plavix, metoprolol Verapamil discontinued Appreciate cardiology input next Also on Xarelto for anticoagulation Continue metoprolol 50 mg twice daily Restarted lasix 40 mg daily Plan to discharge on current medications Epigastric pain Persistent nausea Patient reports EGD in [facility] recently. --CT ABD:No hydronephrosis or delayed nephrogram. Normal appendix. Cholecystectomy. Diverticulosis, without acute diverticulitis. No small bowel obstruction. No free air. --GI on board; stool study for H. pylori-Negative Continue Protonix Started on Zyprexa 2.5 mg at bedtime for nausea. Reports symptomatic improvement. Zofran as needed. Tolerating regular diet Acute bronchitis Secondary to enterovirus infection --BioFire positive for entero/rhinovirus Empirically on doxycycline Conservative management Started on low-dose prednisone Clinically improving Oral thrush Continue clotrimazole Hyponatremia H/O mild hyponatremia for last few years. Serum sodium ranging from 130-134. Sodium 126 on admission, was on salt tablets on admission. Urine osmolarity of 173 and urine random sodium of 13 Hyponatremia likely due to tea and toast diet ( low solute diet) Sodium 135 today Urea discontinued Appreciate nephrology Input Sodium level stable Sodium level stable off urea Continue fluid restriction Needs follow-up with nephrology upon discharge Diarrhea Likely secondary to enterovirus infection Monitor volume status Currently feels constipated Bowel regimen as needed Resolved Paroxysmal atrial fibrillation On metoprolol 50 mg twice daily On Xarelto Verapamil discontinued Equivocal lyme IgM Confirmatory test only shows Lyme IgG 39 KDA band positive. Does not meet criteria for Lyme's disease COPD on home oxygen Continue home inhalers and nebs as needed DVT Px: Xarelto Disposition Home Total Time Total Time Spent Total Time Spent (In Minutes): 58 minutes Discharge Plan Discharge Items Patient Disposition: Home - Self-Care Reason For Visit: EPIGASTRIC PAIN, ELEVATED TROPONIN Discharge Diagnosis: Coronary artery disease Acute bronchitis Enterovirus infection Oral thrush Hyponatremia Activity: Per Instructions section Exercise/Sports: Wait until after follow-up appointment Non-emergency contact: Primary Care Provider, Trainmaster and System Support Analyst Call non-emergency contact if: you have any medication questions, your symptoms worsen, your pain is concerning for you and you have a fever Follow-up/Referrals: Margaret Welsh, [Primary Care Provider] - (Date & Time 12/10/2022 5:20 PM Provider Otis Sanz PA-C Department Family Practice [facility] ) Diet: Heart Healthy Fluids: 1200ml (5 cups) Addtl Attending Provider Instructions: Follow-up with your primary care physician Dr. Welsh on 12/10/2022 5:20 PM Follow-up with your sheet music salesperson Dr. Herring in [place] [facility] in 2-3 with repeat Blood test (basic metabolic panel) Follow-up with your aerospace technician in 2 to 3 weeks. --Continue fluid restriction 1200 mL/day as recommended by her sheet music salesperson. -- Complete the antibiotic, prednisone, clotrimazole course as prescribed. Seek immediate medical attention if your symptoms reoccur or worsen Please take all medications as instructed on discharge list below. Please call if you have any questions or problems. You can reach a [facility] hospitalist on duty at [facility] 24 hours a day by calling [phone] Home Care: * Take your medications exactly as directed. Don't skip doses. * Remember that recovery after a heart attack takes time. Plan to rest for at lease 4-8 weeks while you recover. Then return to normal activity when your doctor says it's okay. * Ask your doctor about joining a heart rehabilitation program. * Tell your doctor if you are feeling depressed. Feelings of sadness are common after a heart attack, but it is important that you speak to someone if you are feeling overwhelmed by these feelings. * If you are having chest pain, call 911 for an ambulance. Do NOT drive yourself to the hospital. * Ask your family members to learn CPR. * Learn to take your own blood pressure and pulse. Keep a record of your results. Ask your doctor when you should seek emergency medical attention. He or she will tell you which blood pressure reading is dangerous. Lifestyle Changes: * Maintain a healthy weight. Get help to lose any extra pounds. * Cut back on salt. * Limit canned, dried, packaged, and fast foods. * Don't add salt to your food. * Season foods with herbs instead of salt when you cook. * Break the smoking habit. Enroll in a stop-smoking program to improve your chances of success. * Limit fatty foods. * Ask your doctor about having your lipid levels checked regularly. * Build up your activity according to your doctor's recommendation. * Ask your doctor when it's okay to resume sexual activity. * Tell your doctor about any erectile dysfunction (ED) medication you are taking. Some ED medications are not safe if you take certain heart medications. * Try to manage stress. Follow Up: It is important for you to keep your follow up appointments with your medical provider. Pending Studies at Discharge: No Stand-Alone Forms: My [facility], Smoking Cessation Medications and DC Order Prescriptions: New losartan 50 mg Tablet 50 mg PO QAM Qty: 30 0RF furosemide 40 mg Tablet 40 mg PO QAM Qty: 30 0RF doxycycline hyclate 100 mg Capsule 100 mg PO BID Qty: 8 0RF metoprolol succinate 50 mg Tablet Extended Release 24 Hr 50 mg PO BID Qty: 60 0RF olanzapine 2.5 mg Tablet 2.5 mg PO HS Qty: 10 0RF docusate sodium 100 mg Capsule 100 mg PO BID PRN (Reason: constipation) Qty: 20 0RF Advanced Probiotic 625 mg (10 billion cell) Capsule 2 cap PO DAILY Qty: 20 0RF clotrimazole 10 mg Larry 10 mg buccal [id number] 10 Days Qty: 60 0RF prednisone 20 mg Tablet 20 mg PO DAILY Qty: 3 0RF Continued Spiriva with HandiHaler 18 mcg capsule, w/inhalation device 1 cap INH DAILY Qty: 90 1RF (DME) nebulizers Misc See Rx Instructions .ROUTE .MEDSUPPLY Qty: 1 0RF Rx Instructions: Q 4HR WITH TUBING & SUPPLIES - albuterol sulfate [ProAir HFA] 90 mcg/actuation HFA aerosol inhaler 2 puff INH Q4H PRN (Reason: shortness of breath or wheezing) Qty: 18 5RF albuterol sulfate 2.5 mg /3 mL (0.083 %) solution for nebulization 2.5 mg INH Q4H PRN (Reason: shortness of breath or wheezing) Qty: 360 5RF melatonin 10 mg tablet 10 mg PO HS PRN (Reason: sleep) Qty: 30 5RF Zyrtec 10 mg capsule 10 mg PO DAILY (DME) Flutter Valve Device See Rx Instructions .ROUTE .MEDSUPPLY Qty: 1 0RF Rx Instructions: Use 2-3 times daily or as needed. Lifetime need. clorazepate dipotassium 15 mg tablet 15 mg PO BID Dexilant 60 mg capsule,biphase delayed releas 60 mg PO DAILY sucralfate 1 gram tablet 1 g PO ACHS ondansetron HCl 4 mg tablet 4 mg PO Q6H PRN (Reason: NAUSEA/VOMITING) loperamide 2 mg Tablet 2 mg PO DIRECTED PRN (Reason: Diarrhea) clopidogrel 75 mg tablet 75 mg PO QAM famotidine 20 mg Tablet 20 mg PO DAILY paroxetine HCl [Paxil] 20 mg Tablet 20 mg PO DAILY fluticasone propion-salmeterol [Advair Diskus] 500-50 mcg/dose Blister With Device 1 inh INHALATION BID fluticasone propionate [Flonase] 50 mcg/actuation [place],Suspension 2 spray INTRANASAL DAILY Rx Instructions: administer into each nostril Xarelto 20 mg tablet 20 mg PO QDD Vitron-C 65 mg iron- 125 mg Tablet,Delayed Release (Dr/Ec) 1 tab PO PC magnesium oxide 400 mg magnesium Tablet 800 mg PO QAM ipratropium-albuterol 0.5 mg-3 mg(2.5 mg base)/3 mL solution for nebulization 3 ml INH Q6H PRN (Reason: Wheezing) clonazepam 0.5 mg tablet 0.5 mg PO BID Discontinued furosemide [Lasix] 20 mg tablet 20 - 40 mg PO DAILY Rx Instructions: PER [facility]--ALTERNATING 20 MG WITH 40 MG DAILY. verapamil 360 mg capsule,ext rel. pellets 24 hr 180 mg PO DAILY sodium chloride 1,000 mg Tablet,Soluble 1,000 mg PO BID metoprolol succinate 50 mg Capsule,Sprinkle,Er 24hr 50 mg PO BID Discharge Orders: Discharge Order (Routine); Ordered 12/05/22 Ordered By: Gustavo Davis Admission Data Admit Date/Time: 11/28/22 23:14 Attending Provider: Gustavo Davis Admit Provider: Rod Swain Primary Care Provider: Margaret Welsh Other Providers: Rod Swain ; Angela Alexander ; Elis Merchatn
[2022-12-05] MEDS: ONDANSETRON INJ 2 MG/ML 2 ML VIAL IV PRN (16:12)
[2022-12-05] MEDS: ALUMINUM/MAGNESIUM SUSP 30 ML UDC PO PRN (16:12)
[2022-12-05] MEDS: RIVAROXABAN 20 MG TAB PO SCH (16:13)
[2022-12-05] MEDS ORDERED: FAMOTIDINE 20 MG TAB PO SCH (21:00)
== END 2022-12-05 17:33 | disposition home or self-care (01) | DRG 281 ==
LOC: ED 15:44 → SUATTDRO 23:14 → EDINP 23:14 → 2S 11-29 14:17
DX: E78.5 Hyperlipidemia, unspecified; I25.10 Atherosclerotic heart disease of native coronary artery without angina pectoris; B37.0 Candidal stomatitis; I21.4 Non-ST elevation (NSTEMI) myocardial infarction; Z99.81 Dependence on supplemental oxygen; J96.11 Chronic respiratory failure with hypoxia; I48.0 Paroxysmal atrial fibrillation; Z88.1 Allergy status to other antibiotic agents; Z88.8 Allergy status to other drugs, medicaments and biological substances; J44.9 Chronic obstructive pulmonary disease, unspecified; I24.8 Other forms of acute ischemic heart disease; Z87.891 Personal history of nicotine dependence; A69.20 Lyme disease, unspecified; E87.1 Hypo-osmolality and hyponatremia; B34.1 Enterovirus infection, unspecified